=== PATIENT | male | born 1995 | race Caucasian/White ===

== ENCOUNTER 2021-12-26 11:52 | Outpatient (REF) | payer OTHER, SELFPAY ==
--- NOTE | ~2021-12-26 | XR_ITS ---
EXAMINATION: XR KNEE, LEFT CLINICAL INFORMATION: Sprain COMPARISON: None TECHNIQUE: Four views of the left knee. FINDINGS: Bones and soft tissues are normal. No fracture or joint effusion. Alignment is anatomic. Joint spaces are well maintained. No abnormal soft tissue calcification. XR/XR knee LT 4V IMPRESSION: Normal left knee.
== END 2021-12-26 11:53 | disposition home or self-care (01) ==
LOC: HO.HMGCX 11:52
PROVIDERS: Visit Provider Internal Medicine
DX: S83.92XA Sprain of unspecified site of left knee, initial encounter (principal)
CPT/HCPCS: 73564

== ENCOUNTER 2022-01-18 07:18 | Outpatient (REF) | payer OTHER, SELFPAY ==
--- NOTE | ~2022-01-18 | MR_ITS ---
EXAMINATION: MR KNEE WITHOUT CONTRAST, LEFT CLINICAL INFORMATION: Left knee pain and swelling. COMPARISON: Left knee radiographs dated 12/26/2021. TECHNIQUE: MRI of the knee without contrast was performed using routine sequences on a high-field scanner. FINDINGS: MENISCI: Medial Meniscus: Intact. Lateral Meniscus: Intact. LIGAMENTS: Cruciate: Intact. Collateral: Intact. EXTENSOR MECHANISM: Intact. ARTICULAR CARTILAGE/BONE: Patellofemoral Compartment: Normal Medial Compartment: Intact articular cartilage. Marrow edema at the posterior aspect of the medial tibial plateau consistent with an osseous contusion. No associated fracture line. Lateral Compartment: Intact articular cartilage. Marrow edema within the posterolateral aspect of the lateral tibial plateau consistent with an osseous contusion. No associated fracture line. JOINT FLUID AND BURSAE: Normal. MR/MR knee LT wo con IMPRESSION: 1. Osseous contusions at the posterior aspect of the medial tibial plateau as well as at the posterolateral aspect of the lateral tibial plateau. No associated fracture line or articular cartilage defect. 2. No meniscal or ligamentous injury.
== END 2022-01-18 07:19 | disposition home or self-care (01) ==
LOC: HO.MRI 07:18
PROVIDERS: Visit Provider Nurse Practitioner Family
DX: M25.562 Pain in left knee (principal)
CPT/HCPCS: 73721

== ENCOUNTER 2022-09-26 08:37 | Outpatient (REF) | payer OTHER, SELFPAY ==
[2022-09-26 11:20] LABS: MANUAL DIFF FLAG NO
[2022-09-26 11:26] LABS: Basophils Absolute Auto 0.1 X10*3/uL (0.0-0.2); Basophils Percent Auto 0.8 % (0-2); Eosinophils Absolute Auto 0.2 X10*3/uL (0.0-0.4); Eosinophils Percent Auto 2.9 % (0-4); Hematocrit 46.7 % (42.0-52.0); Hemoglobin 15.4 g/dl (14.0-18.0); Imm Gran Abs Auto 0.01 X10*3/uL (0.00-0.03); Imm Gran Pct Auto 0.2 % (0.0-0.4); Lymphocytes Absolute Auto 2.2 X10*3/uL (1.2-4.9); Lymphocytes Percent Auto 34.8 % (20-40); Mean Corpuscular Hemoglobin 27.8 pg (27.0-33.0); Mean Corpuscular Volume 84.3 fL (80.0-98.0); Mean Platelet Volume 9.8 fL (9.4-12.4); Monocytes Absolute Auto 0.4 X10*3/uL (0.1-1.2); Monocytes Percent Auto 7.1 % (2-11); Neutrophils Absolute Auto 3.4 x10*3/uL (2.0-8.3); Neutrophils Percent Auto 54.2 % (45-73); Platelet Count 294 X10*3/uL (160-400); Red Blood Count 5.54 X10*6/uL (4.60-5.80); Red Cell Distribution Width 11.9 % (11.0-16.0); White Blood Count 6.2 X10*3/uL (4.8-10.8)
[2022-09-26 11:42] LABS: Appearance Urine Clear; Color Urine Yellow; Glucose Urine UA Negative (Negative); Leukocyte Esterase Urine Negative (Negative); Nitrite Urine Negative (Negative); PH 5.5 (5.0-9.0); Specific Gravity - Urine 1.025 (1.005-1.025); Urine Blood Negative (Negative); Urine Ketones Negative (Negative); Urine Protein Negative (Neg-Trace)
[2022-09-26 12:01] LABS: Alanine Aminotransferase 17 U/L (0-40); Albumin Level 4.7 g/dL (3.5-5.0); Alkaline Phosphatase 70 U/L (39-117); Anion Gap 10 (12-20); Aspartate Amino Transferase 23 U/L (5-37); Blood Urea Nitrogen 11 mg/dL (9-16); C Reactive Protein 0.12 mg/dL (< or = 0.50); Calcium 9.6 mg/dL (8.4-10.2); Carbon Dioxide 30 mmol/L (22-29); Chloride 104 mmol/L (96-108); Cholesterol 172 mg/dL; Estimated Glomerular Filt Rate > 60; Glucose Fasting 90 mg/dL (60-99); HDL Cholesterol 36 mg/dL; LDL Cholesterol Calculated 106 mg/dl; Potassium 4.3 mmol/L (3.3-5.1); Sodium 140 mmol/L (135-145); TSH reflex Free T4 1.83 uIU/mL (0.32-4.0); Total Protein 7.5 g/dL (6.5-8.0); Triglycerides 152 mg/dL
[2022-09-26 12:06] LABS: Erythrocyte Sedimentation Rate 2 MM/HR (0-15)
[2022-09-26 13:43] LABS: Adenovirus F 40/41 Not Detected (Not Detect.); Astrovirus Not Detected (Not Detect.); Campylobacter Not Detected (Not Detect.); Cryptosporidium Not Detected (Not Detect.); Cyclospora cayetanensis Not Detected (Not Detect.); E. coli EAEC Not Detected (Not Detect.); E. coli EPEC Not Detected (Not Detect.); E. coli ETEC Not Detected (Not Detect.); E. coli O157 Not Detected (Not Detect.); E. coli STEC Not Detected (Not Detect.); Entamoeba histolytica Not Detected (Not Detect.); Giardia lamblia Not Detected (Not Detect.); Norovirus GI/GII Not Detected (Not Detect.); Plesiomonas shigelloides Not Detected (Not Detect.); Rotavirus A Not Detected (Not Detect.); Salmonella Not Detected (Not Detect.); Sapovirus Not Detected (Not Detect.); Shigella sp./EIEC Not Detected (Not Detect.); Vibrio Not Detected (Not Detect.); Vibrio Cholerae Not Detected (Not Detect.); Yersinia enterocolitica Not Detected (Not Detect.)
[2022-09-29 04:44] LABS: Transglutaminase IgA <1.0 U/mL
[2022-10-04 14:58] LABS: Endomysial IgA Antibody Negative (Negative)
== END 2022-09-26 08:38 | disposition home or self-care (01) ==
LOC: HO.HMGCLDS 08:37
PROVIDERS: PCP Nurse Practitioner Family; Visit Provider Nurse Practitioner Family
DX: Z00.00 Encounter for general adult medical examination without abnormal findings (principal); R19.7 Diarrhea, unspecified
CPT/HCPCS: 80053; 80061; 81003; 84443; 85025; 85652; 86140; 86231; 86364; 87507

== ENCOUNTER → 2022-10-16 14:40 | Outpatient (BNVA) | payer OTHER, SELFPAY | PROVIDERS: PCP Nurse Practitioner Family; Visit Provider Physician Assistant | DX: K52.9 Noninfective gastroenteritis and colitis, unspecified (principal) | CPT/HCPCS: 99202 ==

== ENCOUNTER → 2022-10-25 12:57 | Outpatient (BNVA) | payer OTHER, SELFPAY | PROVIDERS: PCP Nurse Practitioner Family; Visit Provider Nurse Practitioner Family | DX: R06.83 Snoring (principal); G47.30 Sleep apnea, unspecified; G47.19 Other hypersomnia | CPT/HCPCS: 99202 ==

== ENCOUNTER 2022-10-25 14:05 | Outpatient (REF) | payer OTHER, SELFPAY ==
[2022-10-25 17:10] LABS: C Reactive Protein 0.22 mg/dL (< or = 0.50)
[2022-10-25 17:35] LABS: Ferritin 68 ng/mL (20-250)
[2022-10-25 17:41] LABS: Erythrocyte Sedimentation Rate 2 MM/HR (0-15)
[2022-10-25 17:48] LABS: Vitamin B12 440 pg/mL (200-900)
[2022-10-30 15:44] LABS: Vitamin D 25-OH, D2 <4 ng/mL; Vitamin D 25-OH, D3 19 ng/mL; Vitamin D 25-OH, Total 19 ng/mL (30-100)
== END 2022-10-25 14:06 | disposition home or self-care (01) ==
LOC: HO.HMGCLDS 14:05
PROVIDERS: Absent Provider Physician Assistant; PCP Nurse Practitioner Family; Visit Provider Nurse Practitioner Family
DX: G47.30 Sleep apnea, unspecified (principal); G25.81 Restless legs syndrome; G47.19 Other hypersomnia; R53.83 Other fatigue; K52.9 Noninfective gastroenteritis and colitis, unspecified; R06.83 Snoring
CPT/HCPCS: 36415; 82306; 82607; 82728; 82746; 85652; 86140

== ENCOUNTER 2022-11-01 08:50 | Outpatient (REF) | payer OTHER, SELFPAY ==
[2022-11-01 17:45] LABS: CDiff Gene PCR NEGATIVE (Negative)
[2022-11-01 20:12] LABS: Leukocytes Stool Qualitative NEGATIVE (NEGATIVE)
[2022-11-10 15:57] LABS: Pancreatic Elastase-1 >500 mcg/g
[2022-11-10 23:04] LABS: Calprotectin, Fecal <5 mcg/g
== END 2022-11-01 08:51 | disposition home or self-care (01) ==
LOC: HO.HMGCLDS 08:50
PROVIDERS: PCP Nurse Practitioner Family; Visit Provider Physician Assistant
DX: K52.9 Noninfective gastroenteritis and colitis, unspecified (principal); A04.8 Other specified bacterial intestinal infections
CPT/HCPCS: 82656; 83993; 87338; 87493; 89055

== ENCOUNTER → 2022-11-12 12:53 | Outpatient (BNVA) | payer OTHER, SELFPAY | PROVIDERS: PCP Nurse Practitioner Family; Visit Provider Physician Assistant | DX: K52.9 Noninfective gastroenteritis and colitis, unspecified (principal) | CPT/HCPCS: 99212 ==

== ENCOUNTER → 2022-11-21 13:49 | Outpatient (REF) | payer OTHER, SELFPAY | LOC: HO.SL 13:49 | PROVIDERS: PCP Nurse Practitioner Family; Visit Provider Nurse Practitioner Family | DX: R06.83 Snoring (principal); G25.81 Restless legs syndrome; R53.83 Other fatigue; K52.9 Noninfective gastroenteritis and colitis, unspecified | CPT/HCPCS: 95806 ==

== ENCOUNTER → 2022-12-06 10:51 | Outpatient (BNVA) | payer OTHER, SELFPAY | PROVIDERS: PCP Nurse Practitioner Family; Visit Provider Nurse Practitioner Family | DX: G47.19 Other hypersomnia (principal); G25.81 Restless legs syndrome; R06.81 Apnea, not elsewhere classified; R53.83 Other fatigue | CPT/HCPCS: 99212 ==

== ENCOUNTER → 2023-01-09 19:30 | Outpatient (REF) | payer OTHER, SELFPAY | LOC: HO.SL 19:30 | PROVIDERS: PCP Nurse Practitioner Family; Visit Provider Nurse Practitioner Family | DX: G47.19 Other hypersomnia (principal); G25.81 Restless legs syndrome; R53.83 Other fatigue; R06.83 Snoring; R06.81 Apnea, not elsewhere classified | CPT/HCPCS: 95810 ==

== ENCOUNTER → 2023-01-29 09:46 | Outpatient (BNVA) | payer OTHER, SELFPAY | PROVIDERS: PCP Nurse Practitioner Family; Visit Provider Urology | DX: Z01.818 Encounter for other preprocedural examination (principal); F41.8 Other specified anxiety disorders | CPT/HCPCS: 99202 ==

== ENCOUNTER → 2023-02-06 10:49 | Outpatient (BNVA) | payer OTHER, SELFPAY | PROVIDERS: PCP Nurse Practitioner Family; Visit Provider Nurse Practitioner Family | DX: G47.19 Other hypersomnia (principal); R06.83 Snoring | CPT/HCPCS: 99212 ==

== ENCOUNTER → 2023-02-21 12:53 | Outpatient (BNVA) | payer OTHER, SELFPAY | PROVIDERS: PCP Nurse Practitioner Family; Visit Provider Urology | DX: Z30.2 Encounter for sterilization (principal); F41.8 Other specified anxiety disorders | CPT/HCPCS: 55250 ==

== ENCOUNTER 2023-05-06 13:39 | Outpatient (AMB) | payer OTHER, SELFPAY ==
[2023-05-06 13:45] VITALS: BP 110/68; PULSE 56; O2SAT 98; BMI 26.2
--- NOTE | 2023-05-06 13:45 | A.OFFPC_ITS ---
Vital Signs 05/06/23 13:45 Height 5 ft 9 in Weight 177 lb 4 oz BMI 26.2 BP 110/68 Blood Pressure Location Lt brachial Position Sitting Pulse 56 Pulse Source Pulse Oximeter Pulse Oximetry (%) 98 Oxygen Delivery Method Room Air Intake Visit Reasons: 4M Follow up Allergies clindamycin Allergy (Mild, Verified 05/06/23 13:47) Hives Tobacco use date assessed: 05/06/23 Dental Screening Dental Screen Date: 05/06/23 Did you have a dental visit in the last 12 months?: Yes Did you have a dental problem in the last 6 months where you did not have access to dental care?: No Was dental information given to patient?: Patient has dentist HPI 4M Follow up HPI Details Pt is here for a PE. Will order labs. Pt c/o left shoulder pain. He reports that this has been ongoing. Will order xr and refer to PT. Pt c/o increased anxiety. He would not like to start medication for this. Pt is interested in seeing a therapist, [facility]. Denies any SI and HI. PFSH Family History Father Substance use disorder Crohn's colitis Paternal Grandfather Substance use disorder Brother Substance use disorder Social History (Updated 02/06/23 @ 10:56 by Maia Shook [facility]) Housing: House Alcohol intake: current Alcohol intake frequency: holidays/special occasions only Patient Tobacco Use Status: Former Tobacco user (2 years ago ) Years Smoked: 3 years e-Cigarette/Vaping Use: Never Used service: Yes Current occupational status: employed Current occupation: [employer] Current occupational exposures/hazards: Yes Cognitive needs: No Hearing needs: No Vision needs: No Questionnaire Thrive Questionnaire Date Thrive assessed: 04/05/22 BAKARI-7 AMB Questionnaire BAKARI-7 Date BAKARI - 7 assessed: 04/05/22 Source: Developed by Drs. Marty Mendes, Zoë Blake, Lee Latif and colleagues, with an educational morgan from [employer]. Review of Systems Const Denies chills and Denies fever(s) Eyes Denies blurry vision ENT Denies vertigo, Denies dizziness and Denies sore throat Card Denies chest pain at rest, Denies chest pain with activity, Denies diaphoresis, Denies dyspnea and Denies dyspnea on exertion Resp Denies cough, Denies dyspnea, Denies dyspnea on exertion and Denies wheezing GI Denies abdominal pain, Denies melena, Denies hematochezia, Denies constipation, Denies diarrhea and Denies loose stools Denies hematuria Musc Denies numbness and Denies tingling Skin/Breast Denies lesions Neuro Denies vertigo, Denies dizziness, Denies numbness and Denies tingling Psych Reports anxiety, Denies depression, Denies homicidal ideation, Denies suicidal ideation and Denies other (substance abuse) Aller/Immun Denies wheezing Physical exam (Primary Care) Vital Signs: Last Vital Signs Pulse 56 05/06/23 13:45 BP 110/68 05/06/23 13:45 Pulse Ox 98 05/06/23 13:45 Oxygen Delivery Method Room Air 05/06/23 13:45 BMI result Body Mass Index 26.2 Tobacco/Smoking Status: Tobacco use Status Tobacco use date assessed 05/06/23 05/06/23 13:50 Patient Tobacco Use Status Former Tobacco user (2 years 05/06/23 13:50 ago ) e-Cigarette/Vaping Use Never Used 05/06/23 13:50 Thrive Assessment: Date of Thrive Assessment Date Thrive assessed 04/05/22 05/06/23 13:50 Const General: cooperative Nutritional Appearance: well nourished Orientation/consciousness: patient oriented x3 HENMT Head: Yes normal to inspection, Yes normocephalic and Yes atraumatic Ears: TM's normal bilaterally Eyes General: appearance normal, both eyes and all related structures Alignment and Position: alignment normal and position normal Neck Neck: Yes normal visual inspection and Yes no lymphadenopathy Thyroid: Thyroid normal Resp Effort & Inspection: normal respiratory effort Auscultation: clear to auscultation bilaterally Cardio Rate: regular rate Rhythm: regular rhythm Heart sounds: S1 normal heart sound present, S2 normal heart sound present and n o murmurs GI Palpation (GI): Soft to palpation and nontender Auscultation: normal bowel sounds Male General Exam: Yes normal external exam Penis: normal penis Scrotum: scrotum normal, testes descended bilaterally and no inguinal hernias Testes: no testicular mass Skin Rashes: no rashes Neuro General: patient oriented x3, moves all extremities, no focal motor deficits and deep tendon reflexes 2+ bilaterally Romberg Test: Negative Extrem Other: left shoulder: + neers, + cook, - jobes Psych Appearance: grossly normal Mental Status: mental status grossly normal Speech and movement: Normal speech and movement present Affect: normal affect Attitude: cooperative Thought process: Normal thought process present Thought content: Normal thought content present Insight: Good insight present (Psych) Judgement: Good judgement present (Psych) Assessment and Plan Assessment & Plan (1) Physical exam: Code(s): Z00.00 - Encounter for general adult medical examination without abnormal findings Plan: Labs ordered (2) Left shoulder pain: Code(s): M25.512 - Pain in left shoulder Plan: XR ordered, referred to PT (3) Anxiety: Code(s): F41.9 - Anxiety disorder, unspecified Plan The patient agreed to the use of a medical instrument technician for this encounter. Scribed for TERRANCE Eldridge-BC by Griselda Russ medical instrument technician, on 05/06/2023 at 14:00 EST. Orders: Orders Comprehensive [place]. Panel Fast Today Z00.00 - Encounter for general adult medical examination without abnormal findings Lipid Panel Today Z00.00 - Encounter for general adult medical examination without abnormal findings TSH reflex Free T4 Today Z00.00 - Encounter for general adult medical examination without abnormal findings Complete Blood Count Auto Diff Today Z00.00 - Encounter for general adult medical examination without abnormal findings UA CC w/rflx Micro + Cult Today Z00.00 - Encounter for general adult medical examination without abnormal findings PT Evaluation and Treatment Today M25.512 - Pain in left shoulder XR shoulder LT min 2V Today M25.512 - Pain in left shoulder Coding Level of Care Code Est Pt Prev Care 18-39y(47670) Diagnoses Physical exam Z00.00 Left shoulder pain M25.512 Anxiety F41.9
== END 2023-05-06 14:41 | disposition home or self-care (01) ==
PROVIDERS: PCP Nurse Practitioner Family; Visit Provider Nurse Practitioner Family
DX: Z00.00 Encounter for general adult medical examination without abnormal findings (principal); M25.512 Pain in left shoulder; F41.9 Anxiety disorder, unspecified
CPT/HCPCS: 99395

== ENCOUNTER 2023-05-07 07:24 | Outpatient (REF) | payer OTHER, SELFPAY ==
--- NOTE | ~2023-05-07 | XR_ITS ---
EXAMINATION: XR SHOULDER, LEFT CLINICAL INFORMATION: Pain in left shoulder COMPARISON: None available. TECHNIQUE: AP external rotation, Grashey, scapular Y, and axillary views of the left shoulder. FINDINGS: The bones and soft tissues are normal. No fracture. Glenohumeral and acromioclavicular alignment is anatomic with normal joint space. No abnormal soft tissue calcifications. XR/XR shoulder LT min 2V IMPRESSION: Normal left shoulder.
[2023-05-07 11:28] LABS: MANUAL DIFF FLAG NO
[2023-05-07 11:40] LABS: Basophils Absolute Auto 0.1 X10*3/uL (0.0-0.2); Basophils Percent Auto 0.9 % (0-2); Eosinophils Absolute Auto 0.2 X10*3/uL (0.0-0.4); Eosinophils Percent Auto 4.1 % (0-4); Hematocrit 44.5 % (42.0-52.0); Hemoglobin 15.2 g/dl (14.0-18.0); Imm Gran Abs Auto 0.02 X10*3/uL (0.00-0.03); Imm Gran Pct Auto 0.3 % (0.0-0.4); Lymphocytes Absolute Auto 2.3 X10*3/uL (1.2-4.9); Lymphocytes Percent Auto 38.5 % (20-40); Mean Corpuscular HGB Conc 34.2 g/dl (31.0-36.0); Mean Corpuscular Hemoglobin 28.6 pg (27.0-33.0); Mean Corpuscular Volume 83.8 fL (80.0-98.0); Mean Platelet Volume 9.8 fL (9.4-12.4); Monocytes Absolute Auto 0.4 X10*3/uL (0.1-1.2); Monocytes Percent Auto 7.3 % (2-11); Neutrophils Absolute Auto 2.9 x10*3/uL (2.0-8.3); Neutrophils Percent Auto 48.9 % (45-73); Platelet Count 248 X10*3/uL (160-400); Red Blood Count 5.31 X10*6/uL (4.60-5.80); White Blood Count 5.9 X10*3/uL (4.8-10.8)
[2023-05-07 12:49] LABS: Appearance Urine Clear; Color Urine Yellow; Glucose Urine UA Negative (Negative); Leukocyte Esterase Urine Negative (Negative); Nitrite Urine Negative (Negative); PH 5.5 (5.0-9.0); Specific Gravity - Urine 1.025 (1.005-1.025); Urine Blood Negative (Negative); Urine Ketones Negative (Negative); Urine Protein Negative (Neg-Trace)
[2023-05-07 12:50] LABS: Alanine Aminotransferase 32 U/L (0-40); Albumin Level 4.4 g/dL (3.5-5.0); Alkaline Phosphatase 81 U/L (39-117); Anion Gap 15 (12-20); Aspartate Amino Transferase 45 U/L (5-37); Bilirubin Total 0.5 mg/dL (0.0-1.0); Blood Urea Nitrogen 9 mg/dL (9-16); Calcium 9.5 mg/dL (8.4-10.2); Carbon Dioxide 24 mmol/L (22-29); Chloride 106 mmol/L (96-108); Cholesterol 174 mg/dL; Estimated Glomerular Filt Rate > 60; Glucose Fasting 94 mg/dL (60-99); HDL Cholesterol 44 mg/dL; LDL Cholesterol Calculated 102 mg/dl; Potassium 3.8 mmol/L (3.3-5.1); Sodium 141 mmol/L (135-145); TSH reflex Free T4 3.31 uIU/mL (0.32-4.0); Total Protein 7.6 g/dL (6.5-8.0); Triglycerides 144 mg/dL
== END 2023-05-07 07:25 | disposition home or self-care (01) ==
LOC: HO.HMGCX 07:24
PROVIDERS: PCP Nurse Practitioner Family; Visit Provider Nurse Practitioner Family
DX: Z00.00 Encounter for general adult medical examination without abnormal findings (principal); M25.512 Pain in left shoulder; Z13.220 Encounter for screening for lipoid disorders; Z13.29 Encounter for screening for other suspected endocrine disorder
CPT/HCPCS: 36415; 73030; 80053; 80061; 81003; 84443; 85025

== ENCOUNTER 2023-05-15 08:24 | Outpatient (REF) | payer OTHER, SELFPAY ==
--- NOTE | ~2023-05-15 | US_ITS ---
EXAMINATION: US ABDOMEN COMPLETE CLINICAL INFORMATION: Elevated liver enzymes. COMPARISON: None available. TECHNIQUE: Real-time imaging of the abdominal viscera. FINDINGS: PANCREAS: Normal. ABDOMINAL AORTA: The proximal, mid, and distal segments are normal in caliber. INFERIOR VENA CAVA: Visualized portions are normal. LIVER: Normal. The liver is normal in size. The liver contour is normal. Parenchymal echogenicity is normal. No focal hepatic lesion. There is no intrahepatic biliary duct dilatation seen. GALLBLADDER: There is mild biliary sludge. The gallbladder is physiologically distended without evidence of stones, polyps, wall thickening or pericholecystic fluid. COMMON BILE DUCT: Normal in caliber measuring 0.4 cm in diameter. RIGHT KIDNEY: Normal. No hydronephrosis. No renal calculi or focal parenchymal lesions. The kidney measures 11.3 cm in maximum dimension. LEFT KIDNEY: Normal. No hydronephrosis. No renal calculi or focal parenchymal lesions. The kidney measures 11.0 cm in maximum dimension. SPLEEN: No focal finding. The spleen measures 14.0 cm in maximum dimension. FREE FLUID: None. US/US abdomen complete IMPRESSION: 1. There is mild splenomegaly. 2. There is mild biliary sludge. 3. Otherwise, unremarkable examination.
[2023-05-16 04:05] LABS: HBS Num1 > 1000.00 mIU/mL (0-7.99); HBc Num1 0.12 S/CO (0.00-0.79); HBsAGNum1 0.35 S/CO (0.00-0.99); Hepatitis A Antibody IgM 0.21 Index (0-0.79); Hepatitis B Core Antibody Nonreactive (Nonreactive); Hepatitis B Surface Antigen Negative (Negative); ~HepC Num1 0.08 S/CO (0.00-0.79); ~Hepatitis A Antibody IgM Nonreactive (Nonreactive); ~Hepatitis B Surface Antibody REACTIVE (Nonreactive); ~Hepatitis C Antibody Nonreactive (Nonreactive)
== END 2023-05-15 08:25 | disposition home or self-care (01) ==
LOC: HO.HMGCX 08:24
PROVIDERS: Visit Provider Nurse Practitioner Family
DX: R74.8 Abnormal levels of other serum enzymes (principal)
CPT/HCPCS: 36415; 76700; 86704; 86706; 86709; 86803; 87340

== ENCOUNTER 2023-05-24 13:07 | Outpatient (AMB) | payer OTHER, SELFPAY ==
--- NOTE | 2023-05-24 13:11 | MHC.OFFVIS ---
Intake Intake Visit Reasons: 12w seman analysis Intake Note: Patient is present for Follow Up Semen analysis Urology Med: None Antibiotic Allergy: Clindamycin Blood Thinner: None Pharmacy: [facility] Allergies clindamycin Allergy (Mild, Verified 05/24/23 13:12) Hives [facility] HPI Comments History of Present Illness Details Marshall is a very pleasant male. He is a patient of Dr. Ruiz. He is seen for the following urologic condition - anxiety about health - Vasectomy procedure No sperm seen on [facility] Vasectomy procedure The patient presents for vasectomy procedure. He is currently He has fathered - to child, with a single partner. The youngest child is - 2 years. His partner is aware and permissive for a vasectomy Current form of control is hormonal. The vasectomy may be complicated due to a history of no complicating issues, inguinal hernia repair, orchidopexy, history of orchitis, orchiectomy. Patient education has been provided via AUA video, via printed information, risks of failure, recovery time, bruising and potential pain syndrome have been stressed [facility] Family History Father Substance use disorder Crohn's colitis Paternal Grandfather Substance use disorder Brother Substance use disorder Social History Housing: House Alcohol intake: current Alcohol intake frequency: holidays/special occasions only Patient Tobacco Use Status: Former Tobacco user (2 years ago ) Years Smoked: 3 years e-Cigarette/Vaping Use: Never Used service: Yes Current occupational status: employed Current occupation: [employer] Current occupational exposures/hazards: Yes Cognitive needs: No Hearing needs: No Vision needs: No Review of Systems Const Denies chills and Denies fever(s) Card Reports no additional complaints and Denies syncope Resp Denies cough GI Denies abdominal pain and Denies heartburn Reports as per HPI and Denies change in libido Neuro Denies syncope Psych Denies change in libido Endo Denies change in libido Physical Exam Const General: cooperative, healthy appearing, comfortable and no acute distress Orientation/consciousness: patient oriented x3 HEENT Face and sinus: Yes normal facial exam Mouth: moist mucous membranes Neck Neck: Yes normal visual inspection, Yes full ROM and Yes trachea midline Chest Chest palpation & inspection: normal inspection of the chest Resp Effort & Inspection: normal respiratory effort, able to speak in complete sentences and no respiratory distress GI Inspection: Yes normal to inspection Back/Spine/Pelvis Cervical Spine: normal cervical lordosis Thoracic/Lumbar Spine: thoracic and lumbar spine normal to inspection Skin General skin exam: no rashes or lesions noted Neuro General: patient oriented x3, gait normal, tone normal and moves all extremities Extrem General: Yes normal to inspection and Yes capillary refill normal Assessment & Plan Assessment & Plan (1) Anxiety about health: Code(s): F41.8 - Other specified anxiety disorders Plan PRN Patient Instructions: Imaging studies, laboratory and physical exam results were discussed and reviewed in detail. No major barriers to patient understanding were identified. An opportunity to ask questions regarding the treatment plan was provided. All questions were answered. The patient expressed understanding and agreement with the above treatment plan. The patient is aware they should contact our office by phone for worsening of their current condition or the appearance of new urologic symptoms. Compliance is encouraged with any medications and followup testing that is ordered. It is a privilege to participate in the urologic care of your patient. If you have any questions or concerns regarding treatment for the above conditions, or other urologic issues, please do not hesitate to contact me. The office telephone contact is [phone]. This note is constructed using voice recognition software. While every effort has been made to ensure accuracy propellant charge zone assembler errors may have been included. Yours sincerely, Dr Garrett Contreras MD, DOLLY [facility] - Urology Providers of Expert, Compassionate Care for the Genitourinary System Coding Level of Care Code Est Pt Level 3 (40624) Diagnoses Anxiety about health F41.8
== END 2023-05-24 13:18 | disposition home or self-care (01) ==
PROVIDERS: PCP Nurse Practitioner Family; Visit Provider Urology
DX: F41.8 Other specified anxiety disorders (principal)
CPT/HCPCS: 99213

== ENCOUNTER → 2023-05-24 13:07 | Outpatient (BNVA) | payer OTHER, SELFPAY | PROVIDERS: Visit Provider Urology | DX: Z30.2 Encounter for sterilization (principal); F41.8 Other specified anxiety disorders | CPT/HCPCS: 99212 ==

== ENCOUNTER 2023-07-03 10:51 | Outpatient (REF) | payer OTHER, SELFPAY ==
[2023-07-03 13:32] LABS: Monotest Negative (Negative)
== END 2023-07-03 10:52 | disposition home or self-care (01) ==
LOC: HO.HMGCLDS 10:51
PROVIDERS: PCP Nurse Practitioner Family; Visit Provider Nurse Practitioner Family
DX: R16.1 Splenomegaly, not elsewhere classified (principal)
CPT/HCPCS: 36415; 86308

== ENCOUNTER 2023-08-02 13:00 | Outpatient (RCR) | payer OTHER, SELFPAY ==
--- NOTE | 2023-06-12 12:56 | MHC.PT.EP ---
[facility] [place] Office [place] Office [address] [phone] F: [phone] F: [phone] F: [phone] F: [phone] Physical Therapy Plan of Care Date of Evaluation: 06/12/23 Date of Surgery: none Diagnosis: Pain in Left Shoulder Assessment: Patient is a 27 year old R handed male who presents with s/s consistent with pain in L shoulder. 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 Patient past medical history is unremarkable. Current impairments include pain, posture, ROM, strength, activity tolerance and functional mobility. Functional limitations include decreased ability to reach and lift overhead, sleep, and perform mechanics activities/job demands. Patient is motivated with good rehab potential. Skilled PT will address impairments and functional limitations in order to achieve goals. Frequency and Duration: The patient will be seen 2x/week for 5 weeks Short Term Goals: I with HEP - 4 visits pain free full AROM - 3 weeks min b/l pec tightness - 3 weeks [employer] Goals: Strength 4+/5 grossly - 5 weeks symmetrical posture and cervical rotation - 5 weeks pain free exercise and ADLs - 5 weeks Treatment Plan: Modalities to reduce pain, spasms and effusion. Manual therapy to restore motion and function. Therapeutic exercise to improve strength and flexibility. Neuromuscular re-education for posture and balance. Therapeutic activities to return to functional activities of daily living. Electronically signed by: Chang Duran, PT Please sign and return to therapist. Thank you for your referral.
--- NOTE | 2023-10-22 13:18 | MHC.PT.DC ---
[facility] [place] Office [place] Office [place] Office [address] Roz Durand [address] [phone] F: [phone] F: [phone] F: [phone] F: [phone] Physical Therapy Discharge Report Diagnosis: Pain in Left Shoulder Date of Surgery: none Date of Evaluation: 06/12/23 Date of Discharge: 08/08/23 Treatments to Date: 8 Cancellations to Date: No Shows to Date: Discharge Status: Improved Function Independent with HEP Discharge Summary: 08/02/23: pt progressed well over the course of skilled PT. min to no pain with daily works out. pain free full AROM. strength 5/5 grossly. improved postural awareness. min tight b/l pecs. appropriate to d/c to HEP at this time. 07/31/23: pt progressing well with skilled PT. pain free with daily ex routine. able to do a yumiko with vest pain free. we will plan to d/c to HEP NV. 07/24/23: pt progressing well. notes no pain for several days. we will continue as tolerated. 07/19/23: pt fatigues quickly with ER strengthening ex. i encouraged him to work on ER strength in HEP. added supine punches with black TB. 07/17/23: added thoracic ext stretching and sleeper stretching. no adverse reactions. we will update HEP NV. 07/10/23: pt responding well and able to work out with less discomfort and tightness. we will continue to progress as tolerated. 07/05/23: pt has been feeling sore since last appt. started IASTM to post cuff today. assess response and progress as tolerated. 07/03/23: pt progressing well with skilled PT. compliant with HEP. we progressed today with postural ex. to add cuff strength NV. Patient is a 27 year old R handed male who presents with s/s consistent with pain in L shoulder. 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 Patient past medical history is unremarkable. Current impairments include pain, posture, ROM, strength, activity tolerance and functional mobility. Functional limitations include decreased ability to reach and lift overhead, sleep, and perform mechanics activities/job demands. Patient is motivated with good rehab potential. Skilled PT will address impairments and functional limitations in order to achieve goals. Electronically signed by: Chang Duran, PT Please sign and return to therapist. Thank you for your referral.
== END 2023-10-22 13:19 | disposition home or self-care (01) ==
LOC: HO.PTCHIC 13:00
PROVIDERS: PCP Nurse Practitioner Family; Visit Provider Nurse Practitioner Family
DX: M25.512 Pain in left shoulder (principal)
CPT/HCPCS: 97110; 97140; 97161

== ENCOUNTER 2023-09-05 15:15 | Outpatient (AMB) | payer OTHER, SELFPAY ==
--- NOTE | 2023-09-05 16:12 | MHC.OFFVIS ---
Intake Intake Visit Reasons: sperm analysis Allergies clindamycin Allergy (Mild, Verified 05/24/23 13:12) Hives HPI HPI Comments History of Present Illness Details Marshall is a very pleasant male. He is a patient of Dr. Ruiz. He is seen for the following urologic condition - anxiety about health - Vasectomy procedure Patient had called last week with concerns that his was Instructed to reobtain the office with a 2nd sperm sample Sample examined today no sperm seen on high-powered field examination, small crystals and occasional squamous cells seen (CPT 27438) Discussed obtaining full evaluation through [facility] fertility I also mentioned the possibility of extramarital sperm source He tells me his tested negative this morning - likely false-positive 05/29 No sperm seen on [facility] Vasectomy procedure The patient presents for vasectomy procedure. He is currently He has fathered - to child, with a single partner. The youngest child is - 2 years. His partner is aware and permissive for a vasectomy Current form of control is hormonal. The vasectomy may be complicated due to a history of no complicating issues, inguinal hernia repair, orchidopexy, history of orchitis, orchiectomy. Patient education has been provided via AUA video, via printed information, risks of failure, recovery time, bruising and potential pain syndrome have been stressed [facility] Family History Father Substance use disorder Crohn's colitis Paternal Grandfather Substance use disorder Brother Substance use disorder Social History Housing: House Alcohol intake: current Alcohol intake frequency: holidays/special occasions only Patient Tobacco Use Status: Former Tobacco user (2 years ago ) Years Smoked: 3 years e-Cigarette/Vaping Use: Never Used service: Yes Current occupational status: employed Current occupation: [employer] Current occupational exposures/hazards: Yes Cognitive needs: No Hearing needs: No Vision needs: No Review of Systems Const Denies chills and Denies fever(s) Card Reports no additional complaints and Denies syncope Resp Denies cough GI Denies abdominal pain and Denies heartburn Reports as per HPI and Denies change in libido Neuro Denies syncope Psych Denies change in libido Endo Denies change in libido Physical Exam Const General: cooperative, healthy appearing, comfortable and no acute distress Orientation/consciousness: patient oriented x3 HEENT Face and sinus: Yes normal facial exam Mouth: moist mucous membranes Neck Neck: Yes normal visual inspection, Yes full ROM and Yes trachea midline Chest Chest palpation & inspection: normal inspection of the chest Resp Effort & Inspection: normal respiratory effort, able to speak in complete sentences and no respiratory distress GI Inspection: Yes normal to inspection Back/Spine/Pelvis Cervical Spine: normal cervical lordosis Thoracic/Lumbar Spine: thoracic and lumbar spine normal to inspection Skin General skin exam: no rashes or lesions noted Neuro General: patient oriented x3, gait normal, tone normal and moves all extremities Extrem General: Yes normal to inspection and Yes capillary refill normal Assessment & Plan Assessment & Plan (1) Anxiety about health: Code(s): F41.8 - Other specified anxiety disorders Plan P.r.n. follow-up Patient Instructions: Imaging studies, laboratory and physical exam results were discussed and reviewed in detail. No major barriers to patient understanding were identified. An opportunity to ask questions regarding the treatment plan was provided. All questions were answered. The patient expressed understanding and agreement with the above treatment plan. The patient is aware they should contact our office by phone for worsening of their current condition or the appearance of new urologic symptoms. Compliance is encouraged with any medications and followup testing that is ordered. It is a privilege to participate in the urologic care of your patient. If you have any questions or concerns regarding treatment for the above conditions, or other urologic issues, please do not hesitate to contact me. The office telephone contact is [phone]. This note is constructed using voice recognition software. While every effort has been made to ensure accuracy sec accountant errors may have been included. Yours sincerely, Dr Garrett Contreras MD, DOLLY [facility] - Urology Providers of Expert, Compassionate Care for the Genitourinary System Coding Level of Care Code Est Pt Level 3 (68627) Diagnoses Anxiety about health F41.8
== END 2023-09-05 16:22 | disposition home or self-care (01) ==
PROVIDERS: PCP Nurse Practitioner Family; Visit Provider Urology
DX: F41.8 Other specified anxiety disorders (principal)
CPT/HCPCS: 99213

== ENCOUNTER → 2023-09-05 15:15 | Outpatient (BNVA) | payer OTHER, SELFPAY | PROVIDERS: PCP Nurse Practitioner Family; Visit Provider Urology | DX: F41.8 Other specified anxiety disorders (principal); Z30.2 Encounter for sterilization | CPT/HCPCS: 99212 ==

== ENCOUNTER 2023-09-09 15:26 | Outpatient (AMB) | payer OTHER, SELFPAY ==
[2023-09-09 14:29] VITALS: BP 100/60; PULSE 74; O2SAT 97; BMI 26.6
--- NOTE | 2023-09-09 14:29 | MHC.PC.OV ---
Vital Signs 09/09/23 14:29 Height 5 ft 9 in Weight 180 lb BMI 26.6 BP 100/60 Blood Pressure Location Rt brachial Position Sitting Pulse 74 Pulse Source Pulse Oximeter Pulse Oximetry (%) 97 Oxygen Delivery Method Room Air Intake Visit Reasons: 4 month fu Intake Note: Pt is here today for his 4mo. f/u Allergies clindamycin Allergy (Mild, Verified 09/09/23 15:34) Hives Tobacco use date assessed: 09/09/23 Dental Screening Dental Screen Date: 09/09/23 HPI 4 month fu HPI Details Pt c/o frequent diarrhea (see previous work up). He has tried imodium which caused constipation. Pt has seen GI for this in the past, EGD/colonoscopy was mentioned but pt has not had this. Will reach out to GI office. Denies fever, chills, and and blood in stool. PFSH Family History Father Substance use disorder Crohn's colitis Paternal Grandfather Substance use disorder Brother Substance use disorder Social History Housing: House Alcohol intake: current Alcohol intake frequency: holidays/special occasions only Patient Tobacco Use Status: Former Tobacco user (2 years ago ) Years Smoked: 3 years e-Cigarette/Vaping Use: Never Used service: Yes Current occupational status: employed Current occupation: [employer] Current occupational exposures/hazards: Yes Cognitive needs: No Hearing needs: No Vision needs: Yes Questionnaire PHQ-9 Over the last 2 weeks, how often have you been bothered by any of the following problems? 1. Little interest or pleasure in doing things: not at all 2. Feeling down, depressed, or hopeless: not at all 3. Trouble falling or staying asleep, or sleeping too much: not at all 4. Feeling tired or having little energy: not at all 5. Poor appetite or overeating: not at all 6. Feeling bad about yourself - or that you are a failure or have let yourself or your family down: not at all 7. Trouble concentrating on things, such as reading the newspaper or watching television: not at all 8. Moving or speaking so slowly that other people could have noticed. Or the opposite - being so fidgety or restless that you have been moving around a lot more than usual: not at all 9. Thoughts that you would be better off or of hurting yourself in some way: not at all Total score: 0 Source: Developed by Drs. Marty Mendes, Zoë Blake, Lee aLtif and colleagues, with an educational morgan from [employer]. Thrive Questionnaire Date Thrive assessed: 09/09/23 I am a: Patient What is your living situation today?: I have a steady place to live Within the past 12 months, did the food you bought not last and you didn't have the money to get more?: Never true Within the past 12 months, did you worry whether your food would run out before you got money to buy more?: Never true Do you have trouble paying for medicines?: No Do you have trouble getting transportation to medical appointments?: No Do you have trouble paying your heating and electricity bill?: No Do you have trouble taking care of your child, family member or friend?: No Do you have trouble with day-to-day activities such as bathing, preparing meals, shopping, managing finances, etc.?: No Are you currently unemployed and looking for a job?: No Are you interested in more education?: No AUDIT C Alcohol Use Questionnaire (AUDIT-C) 1. How often do you have a drink containing alcohol?: Monthly or less 2. How many drinks containing alcohol do you have on a typical day when you are drinking?: 1 or 2 3. How often do you have six or more drinks on one occasion?: Never Total Score: 1 BAKARI-7 AMB Questionnaire BAKARI-7 Date BAKARI - 7 assessed: 09/09/23 Feeling nervous, anxious, or on edge: 1 = Several days Not being able to stop or control worryin = Not at all Worrying too much about different things: 1 = Several days Trouble relaxin = Not at all Being so restless that it is hard to sit still: 0 = Not at all Becoming easily annoyed or irritable: 0 = Not at all Feeling afraid as if something awful might happen: 0 = Not at all Total BAKARI-7 score (0-4 normal; 5-9 mild; 10-14 moderate; 15-21 severe): 2 Source: Developed by Drs. Maryt Mendes, Zoë Blake, Lee Latif and colleagues, with an educational morgan from [employer]. Review of Systems Const Reports as per HPI Physical exam (Primary Care) Vital Signs: Last Vital Signs Pulse 74 09/09/23 14:29 BP 100/60 09/09/23 14:29 Pulse Ox 97 09/09/23 14:29 Oxygen Delivery Method Room Air 09/09/23 14:29 BMI result Body Mass Index 26.6 Tobacco/Smoking Status: Tobacco use Status Tobacco use date assessed 09/09/23 09/09/23 15:36 Patient Tobacco Use Status Former Tobacco user (2 years 09/09/23 14:29 ago ) e-Cigarette/Vaping Use Never Used 09/09/23 14:29 PHQ-9: PHQ-9 Score PHQ-9: Total score 0 09/09/23 15:59 Thrive Assessment: Date of Thrive Assessment Date Thrive assessed 09/09/23 09/09/23 15:41 Const General: cooperative Orientation/consciousness: patient oriented x3 Resp Effort & Inspection: normal respiratory effort Auscultation: clear to auscultation bilaterally Cardio Rate: regular rate Rhythm: regular rhythm Heart sounds: S1 normal heart sound present and S2 normal heart sound present GI Palpation (GI): nontender Neuro General: patient oriented x3 Psych Appearance: grossly normal Mental Status: mental status grossly normal Speech and movement: Normal speech and movement present Affect: normal affect Attitude: cooperative Thought process: Normal thought process present Thought content: Normal thought content present Insight: Good insight present (Psych) Judgement: Good judgement present (Psych) Assessment and Plan Assessment & Plan (1) Diarrhea: Code(s): R19.7 - Diarrhea, unspecified Plan: follow up with GI Plan The patient agreed to the use of a medical grade shoemaker for this encounter. Scribed for DAVIE Eldridge by Griselda Russ medical grade shoemaker, on 09/09/2023 at 15:55 EST. Coding Level of Care Code Est Pt Level 3 (43103) Diagnoses Diarrhea R19.7
== END 2023-09-09 16:49 | disposition home or self-care (01) ==
PROVIDERS: PCP Nurse Practitioner Family; Visit Provider Nurse Practitioner Family
DX: R19.7 Diarrhea, unspecified (principal)
CPT/HCPCS: 99213

== ENCOUNTER 2023-11-20 11:24 | Day surgery (SDC) | payer OTHER, SELFPAY ==
[2023-11-18 11:28] VITALS: BMI 27.3
--- NOTE | 2023-11-19 10:51 | P.CONAN_ITS ---
Documented by User: Katy Varela NP 11/19/23 10:51 HPI - Anesthesia Eval Consult details Narrative: 28yo M for Upper Endoscopy and Colonoscopy [facility] Active Problems Active Problems: All Active Problems (Updated 11/19/23 @ 06:40 by Winnie Ball RN) Elevated liver enzymes (Acute) Anxiety (Acute) Left shoulder pain (Acute) Anxiety about health (Acute) Witnessed apneic spells (Acute) Excessive daytime sleepiness (Acute) Restless leg syndrome (Acute) Chronic diarrhea (Acute) Vasectomy evaluation (Acute) Fatigue (Acute) Snores (Acute) Sleep apnea (Acute) Diarrhea (Acute) Cerumen impaction (Acute) Physical exam (Acute) Left knee pain (Acute) Sprain of left knee (Acute) Past Medical History Medical History (Updated 11/19/23 @ 06:40 by Winnie Ball RN) IBS (irritable bowel syndrome) Family History Family History Father Substance use disorder Crohn's colitis Paternal Grandfather Substance use disorder Brother Substance use disorder Social History Social History Housing: House Alcohol intake: current Alcohol intake frequency: holidays/special occasions only Patient Tobacco Use Status: Former Tobacco user (2 years ago ) Years Smoked: 3 years e-Cigarette/Vaping Use: Never Used Advance Directives: No Advance Directives Information Provided: Yes service: Yes Current occupational status: employed Current occupation: [employer] Current occupational exposures/hazards: Yes Cognitive needs: No Hearing needs: No Vision needs: Yes Meds Allergies Allergy/AdvReac Type Severity Reaction Status Date / Time clindamycin Allergy Mild Hives Verified 09/09/23 15:34 Exam Height,Weight and Vital Signs: Height 5 ft 9 in Weight 83.915 kg Assessment and Plan Assessment Anesthesia Assessment: Chart Reviewed Documented by User: Trina Hayes MD 11/20/23 11:53 PMF Past Medical History Medical History (Updated 11/19/23 @ 06:40 by Winnie Ball RN) IBS (irritable bowel syndrome) Family History Family History Father Substance use disorder Crohn's colitis Paternal Grandfather Substance use disorder Brother Substance use disorder Family history of problems with anesthesia: No Surgical History History of Problems with Anesthesia: No Social History Social History Housing: House Alcohol intake: current Alcohol intake frequency: holidays/special occasions only Patient Tobacco Use Status: Former Tobacco user (2 years ago ) Years Smoked: 3 years e-Cigarette/Vaping Use: Never Used Advance Directives: No Advance Directives Information Provided: Yes service: Yes Current occupational status: employed Current occupation: [employer] Current occupational exposures/hazards: Yes Cognitive needs: No Hearing needs: No Vision needs: Yes Meds Allergies Allergy/AdvReac Type Severity Reaction Status Date / Time clindamycin Allergy Mild Hives Verified 09/09/23 15:34 Exam Airway Mallampati Class: II TM Dist: >3cm Neck ROM: Full Heart: rrr Lungs: cta Assessment and Plan Assessment Anesthesia Assessment: Anesthesia Plan Discussed Final Anesthetic Review Family History of Problems with Anesthesia: No History of Problems with Anesthesia: No NPO: Yes ASA Class: II Final Preanesthetic Review: No Changes in Pt Med Stat, Meds/Allgs Chart Reviewed and Consent Obtained/Reviewed Patient Risk: Low Procedure Risk: Low Anesthetic Plan Anesthetic Plan: MAC: Disposition: Standard PACU
--- NOTE | 2023-11-20 11:59 | MHC.SHP ---
Pre-Procedural Eval Section A - 24 Hr Update-Section A only Date of Service: 11/20/23 Section B - Complete if H&P > 30 days Chief Complaint: Noninfective gastroenteritis and colitis, unspecif Details of Present Illness: FH of IBD Relevant Family History (Specify if Yes): Yes Relevant Social History: None Present Medications: see Short Stay Collaborative assessment Medical History: Significant History (possible ANGELINA) History of Previous Operations: No relevant previous surgery Allergies: Allergies Allergy/AdvReac Type Severity Reaction Status Date / Time clindamycin Allergy Mild Hives Verified 09/09/23 15:34 Review of Systems Sugical H&P ROS: Negative: Constitution, Cardiovascular, Respiratory, Neurological, Psychiatric, Hem-Onc, Allergic/Immunologic, Gastrointestinal, Genitourinary, Musculoskeletal, Integumentary, Endocrine and Eyes/Ears/Nose/Throat Exam Surgical H&P Exam: Normal: HEENT, Normal: Heart, Normal: Lungs, Normal: Extremities, Normal: Abdomen, Normal: Skin and Normal: Neurological Plan Diagnosis/Plan: Unchanged I have reviewed the history and physical and performed a pertinent physical examination on my patient. No changes have occurred unless specified. Time Spent With Patient Time: Total time managing care of this patient today ____ minutes.
[2023-11-20 12:03] VITALS: BP 132/82; PULSE 77; RESP 18; TEMP 36.7; O2SAT 98; BMI 27.8
--- NOTE | 2023-11-20 12:44 | P.OP_ITS ---
Operative Note Operative Note Date of Service: 11/20/23 Narrative: Operative Information Procedure Description: EGD, Colonoscopy Indication: diarrhea Anesthesia: MAC FLEXIBLE TRANSORAL UPPER GASTROINTESTINAL ENDOSCOPY AND COLONOSCOPY PROCEDURE NOTE UPPER ENDOSCOPY Consent: Indications for the procedure and potential complications of bleeding, perforation, reaction to medications and missed diagnosis were discussed with the patient and informed consent was obtained. Instrument: Olympus GIF H 190 J mid size upper endoscope Monitoring: Vital signs and clinical assessment, continuous EKG monitoring, Pulse oximetry, Carbon Dioxide monitoring and blood pressure monitoring were done throughout the procedure. Procedure: The patient was placed in the left lateral decubitis position and pre-procedure medications were administered and a bite block was placed. The endoscope was inserted into the mouth and advanced under direct vision to the third part of duodenum. A careful inspection was made as the upper endoscope was withdrawn including a retroflexed examination of the proximal stomach; Findings and interventions are described below. Findings: Larynx:normal Esophagus: GE junction at 42 cm, diaphragm hiatus at 42 cm, bogginess and congestion at GEJ, bx taken from here and from distal and proximal esophagus. Some white patches noted but cleared with water irrigation Stomach: Patchy erythema. Biopsies were obtained. Grade 2 flap valve on retroflexed examination of the cardia. Duodenum: bulbar duodenitis, bx taken Intervention: Biopsies as noted above COLONOSCOPY Instrument: Olympus variable stiffness pediatric scope 190L Colonoscopy Monitoring: Vital signs and clinical assessment, continuous EKG monitoring, Pulse oximetry, Carbon Dioxide monitoring and blood pressure monitoring were done throughout the procedure. Colon withdrawal time was 13 minutes. Procedure: The patient was placed in the left lateral decubitis position and pre-procedure medications were administered. After a digital rectal examination of the ano-rectum, the video colonoscope was inserted into the rectum and advanced through the colon to the cecum/TI. The colonoscope was slowly withdrawn in a retrograde panoramic fashion and the colon mucosa was carefully examined including a retroflexed view of the rectum. Findings and interventions are described below. Procedure Difficulty: easy Findings: Terminal Ileum-normal, bx taken Cecum:normal Ascending Colon: normal, random bx taken Transverse Colon -normal Descending Colon:normal Sigmoid Colon: normal, random bx taken Rectum: Retroflexion with small internal hemorrhoids, grade I, random bx taken Anorectum - normal Colon preparation: [place] Bowel Preparation Scale Right colon; 1-2 Transverse colon: 2 Left colon; 2 (0 = Unprepared colon segment with mucosa not seen due to solid stool that cannot be cleared. 1 = Portion of mucosa of the colon segment seen, but other areas of the colon segment not well seen due to staining, residual stool and/or opaque liquid. 2 = Minor amount of residual staining, small fragments of stool and/or opaque liquid, but mucosa of colon segment seen well. 3 = Entire mucosa of colon segment seen well with no residual staining, small fragments of stool or opaque liquid) Impression and Post Procedure Diagnosis: Endoscopy Findings: gastritis duodenitis esophagitis Colonoscopy Findings: fair prep internal hemorrhoids Plan: Await Pathology results Repeat Colonoscopy in 1 year if ongoing sx de to fair prep in certain areas or earlier if clinically indicated High fiber diet leaflet avoid straining at stool, epsom salts and sitz bath, anusol supps or cream consider trial of PPI and see if helps his sx Above findings were reviewed with the patient and relevant handouts were provided if indicated.
[2023-11-20] MEDS: Lactated Ringers 1,000 ML 100 ML IVCONT (12:45)
[2023-11-20 13:43] VITALS: BP 107/62; PULSE 77; RESP 12; TEMP 36.1; O2SAT 94
[2023-11-20 13:58] VITALS: BP 98/53; PULSE 50; RESP 12; O2SAT 94
[2023-11-20 14:13] VITALS: BP 120/66; PULSE 69; RESP 16; TEMP 36.2; O2SAT 98
[2023-11-20 15:02] LABS: CDiff Gene PCR NEGATIVE (Negative)
[2023-11-21 10:04] LABS: Adenovirus F 40/41 Not Detected (Not Detect.); Astrovirus Not Detected (Not Detect.); Campylobacter Not Detected (Not Detect.); Cryptosporidium Not Detected (Not Detect.); Cyclospora cayetanensis Not Detected (Not Detect.); E. coli EAEC Not Detected (Not Detect.); E. coli EPEC Not Detected (Not Detect.); E. coli ETEC Not Detected (Not Detect.); E. coli STEC Not Detected (Not Detect.); Entamoeba histolytica Not Detected (Not Detect.); Giardia lamblia Not Detected (Not Detect.); Norovirus GI/GII Not Detected (Not Detect.); Plesiomonas shigelloides Not Detected (Not Detect.); Rotavirus A Not Detected (Not Detect.); Salmonella Not Detected (Not Detect.); Sapovirus Not Detected (Not Detect.); Shigella sp./EIEC Not Detected (Not Detect.); Vibrio Not Detected (Not Detect.); Vibrio Cholerae Not Detected (Not Detect.); Yersinia enterocolitica Not Detected (Not Detect.)
[2023-11-28 16:04] LABS: Lactoferrin, Fecal, Quant. <6.25 mcg/mL (<7.25)
== END 2023-11-20 14:25 | disposition home or self-care (01) ==
PROVIDERS: PCP Nurse Practitioner Family; Visit Provider Internal Medicine Gastroenterology
PROC: (CPT 43239; principal; 2023-11-20 13:50)
DX: K29.60 Other gastritis without bleeding (principal); K20.80 Other esophagitis without bleeding; K29.80 Duodenitis without bleeding; K22.89 Other specified disease of esophagus; K52.9 Noninfective gastroenteritis and colitis, unspecified; K64.0 First degree hemorrhoids
CPT/HCPCS: 43239; 45380; 83631; 87493; 87507; 88305; 88313; 88342; J1596; J2704

== ENCOUNTER → 2023-11-20 11:24 | Outpatient (BNV) | payer OTHER, SELFPAY | PROVIDERS: PCP Nurse Practitioner Family; Visit Provider Internal Medicine Gastroenterology | DX: K52.9 Noninfective gastroenteritis and colitis, unspecified (principal); K64.0 First degree hemorrhoids; K29.90 Gastroduodenitis, unspecified, without bleeding; K21.00 Gastro-esophageal reflux disease with esophagitis, without bleeding; K63.89 Other specified diseases of intestine | CPT/HCPCS: 43239; 45380 ==

== ENCOUNTER 2023-12-03 09:23 | Outpatient (AMB) | payer OTHER, SELFPAY ==
--- NOTE | 2023-12-03 09:24 | MHC.OFFVIS ---
Intake Vital Signs 12/03/23 09:25 Height 5 ft 9 in Weight 187 lb 6.287 oz BMI 27.7 BP 109/57 L Blood Pressure Location Lt brachial Position Sitting Pulse 51 Intake Visit Reasons: s/p egd/colon Intake Note: Marshall presents in the office as a follow up EGD and COLO. CC: He states that he is not having any concerns since the procedures. Emergency Care Tech Required: No Allergies clindamycin Allergy (Mild, Verified 12/03/23 09:25) Hives HPI HPI Comments History of Present Illness Details A 28-year-old male seen initially with chronic diarrhea acid reflux family history of IBD follows up after recent EGD colonoscopy He continues to have multiple urgent stools daily-with bloating gas Reviewed labs and stool studies-no findings to account for symptoms He had begun pantoprazole 40 mg Reviewed procedure report as well as pathology recommendations He is somewhat frustrated-dicyclomine, imodium not helpful- He has no abdominal pain hematemesis, hematochezia fever or chills [facility] Medical History (Updated 12/05/23 @ 10:19 by Nina Matias PA-C) IBS (irritable bowel syndrome) Surgical History Hx of colonoscopy History of esophagogastroduodenoscopy (EGD) Family History Father Substance use disorder Crohn's colitis Paternal Grandfather Substance use disorder Brother Substance use disorder Social History Housing: House Alcohol intake: current Alcohol intake frequency: 0-2 drinks per day Patient Tobacco Use Status: Former Tobacco user Years Smoked: 3 years e-Cigarette/Vaping Use: Never Used service: Yes Current occupational status: employed Current occupation: [employer] Current occupational exposures/hazards: Yes Cognitive needs: No Hearing needs: No Vision needs: Yes Review of Systems Const All systems reviewed & are unremarkable except as noted in HPI and below Card Denies chest pain and Denies dyspnea Resp Denies dyspnea GI Denies abdominal pain, Reports bloating, Reports excessive flatus and Reports loose stools Psych Reports anxiety Physical Exam Vital Signs: Last Vital Signs Pulse 51 12/03/23 09:25 BP 109/57 L 12/03/23 09:25 BMI result Body Mass Index 27.7 Const General: cooperative, healthy appearing, comfortable and no acute distress Orientation/consciousness: patient oriented x3 Limitations: no limitations Eyes Sclerae: sclerae normal Resp Effort & Inspection: normal respiratory effort and able to speak in complete sentences Skin General skin exam: no rashes or lesions noted Neuro General: patient oriented x3 Extrem General: Yes full ROM Psych Appearance: grossly normal and well kempt Mental Status: mental status grossly normal Speech and movement: Normal speech and movement present Affect: normal affect Thought process: Normal thought process present Thought content: Normal thought content present Insight: Good insight present (Psych) Judgement: Good judgement present (Psych) Results Reviewed Results Reviewed: Impression and Post Procedure Diagnosis: Endoscopy Findings: gastritis duodenitis esophagitis Colonoscopy Findings: fair prep internal hemorrhoids Plan: Await Pathology results Repeat Colonoscopy in 1 year if ongoing sx de to fair prep in certain areas or earlier if clinically indicated High fiber diet leaflet avoid straining at stool, epsom salts and sitz bath, anusol supps or cream consider trial of PPI and see if helps his sx : 1995 Submitted by: Liudmila Kay MD Copies to: Tigre Evangelista [facility]- MR #: [id number] Status: [facility] Collected: 11/20/23 Location: [facility] Received: 11/20/23 Diagnosis A. Colon, right, biopsy: Colonic mucosa within normal limits. B. Terminal ileum, biopsy: Terminal ileal mucosa within normal limits. C. Colon, left, biopsy: Colonic mucosa within normal limits. D. Rectum, biopsy: Rectal mucosa within normal limits. E. Duodenum, biopsy: Chronic inactive duodenitis. F. Stomach, biopsy: Oxyntic mucosa with mild chronic inactive inflammation; no Helicobacter organisms seen. G. GE junction, biopsy: - Cardiac-type mucosa with moderate chronic active inflammation; no intestinal metaplasia seen. - Active esophagitis with slough. H. Esophagus, distal, biopsy: Active esophagitis (few eosinophils and neutrophils). I. Esophagus, proximal, biopsy: Squamous epithelium within normal limits; no inflammation seen. Clinical History Pre-Op Dx: Noninfective gastroenteritis and colitis, unspecified Post-Op Dx: Internal hemorrhoids, gastritis, esophagitis, duodenitis Microscopic Description A-I. Microscopic sections examined. Chronic injury is present (E) and no metaplastic changes are seen (F, G) supported by AB/PAS stains; no Helicobacter organisms are seen, supported by H. pylori immunostain (F). Material Received A. Right side colon bx's B. TI bx's C. Left side colon bx's D. Rectal bx's E. Duodenum bx's F. Stomach bx's Patient: Marshall Zhong Age/Sex: 28/M MR#: [id number] Page 1 of 2 Assessment & Plan Assessment & Plan (1) Chronic diarrhea: Comment: Very pleasant, polite 28-year-old Gent chronic diarrhea family history of IBD Labs, stool studies, reviewed normal sed rate, stools negative to include school calprotectin- EGD colon- Kay- reviewed No improvement with Imodium, dicyclomine-some frustrated certainly understandable Code(s): K52.9 - Noninfective gastroenteritis and colitis, unspecified Plan: Xifaxan 2 weeks (2) Esophagitis: Code(s): K20.90 - Esophagitis, unspecified without bleeding Plan: Continue pantoprazole will reassess, monitor symptoms-in hopes to decrease dose and wean off Plan Continue pantoprazole Trial Xifaxan Orders: Orders Transglutaminase IgA 12/03/23 R19.7 - Diarrhea, unspecified Calprotectin, Fecal 12/03/23 R19.7 - Diarrhea, unspecified Gliadin Ab Panel 12/03/23 K52.9 - Noninfective gastroenteritis and colitis, unspecified Medications: New rifaximin 550 mg PO TID 14 days 42 tabs 0RF Refilled pantoprazole 40 mg PO DAILY 60 tabs 5RF Patient Instructions: Very pleasant 28-year-old Gent chronic diarrhea-despite Imodium, as well as dicyclomine. However he does have some anxiety may be functional- Will give trial of Xifaxan 550 mg t.i.d. for 2 weeks in hopes for movement-he will keep me informed-he is agreeable with the plan Encouraged to call questions or concerns Appreciate the opportunity assist in the care this pleasant Gent Coding Level of Care Code Est Pt Level 3 (31942) Diagnoses Chronic diarrhea K52.9 Esophagitis K20.90 Time Spent (min) 30
[2023-12-03 09:25] VITALS: BP 109/57; PULSE 51; BMI 27.7
== END 2023-12-03 10:12 | disposition home or self-care (01) ==
PROVIDERS: PCP Nurse Practitioner Family; Visit Provider Physician Assistant
DX: K52.9 Noninfective gastroenteritis and colitis, unspecified (principal); K20.90 Esophagitis, unspecified without bleeding
CPT/HCPCS: 99213

== ENCOUNTER → 2023-12-03 09:23 | Outpatient (BNVA) | payer OTHER, SELFPAY | PROVIDERS: PCP Nurse Practitioner Family; Visit Provider Physician Assistant | DX: K52.9 Noninfective gastroenteritis and colitis, unspecified (principal); K20.90 Esophagitis, unspecified without bleeding | CPT/HCPCS: 99212 ==

== ENCOUNTER 2024-02-01 12:00 | Outpatient (AMB) | payer OTHER, SELFPAY ==
[2024-02-01 12:49] VITALS: BP 92/60; PULSE 80; TEMP 36.7; O2SAT 97; BMI 27.0
--- NOTE | 2024-02-01 12:49 | MHC.OFFWIV ---
Intake Vital Signs 02/01/24 12:49 Height 5 ft 9 in Weight 183 lb BMI 27.0 BP 92/60 Blood Pressure Location Rt brachial Position Sitting Pulse 80 Pulse Source Pulse Oximeter Temp 98.1 F Temp Source Oral Pulse Oximetry (%) 97 Oxygen Delivery Method Room Air Intake Visit Reasons: EP lft shoulder pain Intake Note: Pt is here today c/o Lt shoulder and neck pain due to falling while playing soccer at work ([place]) Patient Tobacco Use Status: Former Tobacco user Allergies clindamycin Allergy (Mild, Verified 02/01/24 13:11) Hives Medication List - Last Reconciled 02/01/24 by Larisa Wilson, LIBRARY PARAPROFESSIONAL-BC dicyclomine 10 mg PO TID PRN pantoprazole 40 mg PO DAILY HPI HPI Comments History of Present Illness Details 28-year-old [place] here today with complaints of left shoulder pain. He reports that he was playing soccer yesterday and he fell with his left arm extended and landed on the ground he felt a pop and felt like the shoulder was displaced in an upward fashion. He also fell pins and needles in his hand at the time of the fall. This has since resolved. Since this time he has had pain in the shoulder. Using [id number] pain relievers with mild relief. Has limited range of motion due to pain. Reports that he did have issues with the shoulder in the past and actually just completed physical therapy. He denies any surgery on this shoulder. [facility] Medical History IBS (irritable bowel syndrome) Surgical History Hx of colonoscopy History of esophagogastroduodenoscopy (EGD) Family History Father Substance use disorder Crohn's colitis Paternal Grandfather Substance use disorder Brother Substance use disorder Social History Housing: House Alcohol intake: current Alcohol intake frequency: 0-2 drinks per day Patient Tobacco Use Status: Former Tobacco user Years Smoked: 3 years e-Cigarette/Vaping Use: Never Used service: Yes Current occupational status: employed Current occupation: [employer] Current occupational exposures/hazards: Yes Cognitive needs: No Hearing needs: No Vision needs: Yes Review of Systems Const All systems reviewed & are unremarkable except as noted in HPI and below Physical Exam Vital Signs: Last Vital Signs Temp 98.1 F 02/01/24 12:49 Pulse 80 02/01/24 12:49 BP 92/60 02/01/24 12:49 Pulse Ox 97 02/01/24 12:49 Oxygen Delivery Method Room Air 02/01/24 12:49 BMI result Body Mass Index 27.0 Extrem Shoulder/upper arm images: 1. Pain with palpation. No obvious joint deformity. No erythema, warmth, edema. Limited range of motion in all directions due to pain. Strength limited only by pain. Neurovascularly intact. Assessment & Plan Assessment & Plan (1) Left shoulder pain: Code(s): M25.512 - Pain in left shoulder Qualifiers: Chronicity: acute Qualified Code(s): M25.512 - Pain in left shoulder Plan: . This note is constructed using voice recognition software. While every effort has been made to ensure accuracy in community affairs manager, still errors may have been included Sometimes, these errors may affect the content or meaning of the given sentence . Total time spent caring for the patient today was 45 minutes. This includes time spent before the visit reviewing the chart, time spent during the visit, and time spent after the visit on documentation Orders: Orders XR shoulder LT min 2V Today M25.512 - Pain in left shoulder Referrals Orthopedics Referral M25.512 - Pain in left shoulder Medications: New ibuprofen 800 mg PO Q8H PRN 30 tabs 0RF pain tizanidine (Zanaflex) 2 mg (1/2 x 4 mg) PO BID 5 days PRN 5 tabs 0RF muscle spasticity Patient Instructions: Preliminary read of the x-ray of left shoulder done today by myself shows no fracture or dislocation, no obvious deformity. I have placed a referral to orthopedics for further evaluation and treatment. Advised to take ibuprofen 3 times a day as needed along with muscle relaxer. Gentle range of motion. Supportive care. Coding Level of Care Code Est Pt Level 5 (04045) Diagnoses Acute pain of left shoulder M25.512 Chronicity: acute
== END 2024-02-01 13:57 | disposition home or self-care (01) ==
PROVIDERS: PCP Nurse Practitioner Family; Visit Provider Nurse Practitioner Family
DX: M25.512 Pain in left shoulder (principal)
CPT/HCPCS: 99051; 99215

== ENCOUNTER 2024-02-01 13:18 | Outpatient (REF) | payer OTHER, SELFPAY ==
--- NOTE | ~2024-02-01 | XR_ITS ---
EXAMINATION: XR SHOULDER, LEFT CLINICAL INFORMATION: Reason for Exam M25.512 - Pain in left shoulder COMPARISON: None TECHNIQUE: Three views of the shoulder. FINDINGS: No acute fracture or dislocation. Joint spaces are maintained without significant degenerative change. Soft tissues are unremarkable. XR/XR shoulder LT min 2V IMPRESSION: * No acute osseous abnormality.
== END 2024-02-01 13:19 | disposition home or self-care (01) ==
LOC: HO.HMGCX 13:18
PROVIDERS: PCP Nurse Practitioner Family; Visit Provider Nurse Practitioner Family
DX: M25.512 Pain in left shoulder (principal)
CPT/HCPCS: 73030

== ENCOUNTER 2024-02-27 10:06 | Outpatient (AMB) | payer OTHER, SELFPAY ==
--- NOTE | 2024-02-27 10:18 | A.OFFVIS_ITS ---
Vital Signs 02/27/24 10:19 Height 5 ft 9 in Weight 183 lb BMI 27.0 Handedness Right Intake Visit Reasons: New Pt - left shoulder pain Intake Note: Marshall is a 28 year old right hand dominant male who presents today as a new patient for a evaluation of his left shoulder pain. DOI 01/31/24. Patient reports ongoing pain for about a month. He states that he was playing Frisbee and he went to catch it he landed with his left arm hyper extended. Patient states that his pain is on the anterior aspect of the shoulder and it radiates up to his neck. He expresses that his ROM is a little limited. Allergies clindamycin Allergy (Mild, Verified 02/27/24 10:18) Hives HPI HPI New Pt - left shoulder pain: Details: 28-year-old right hand dominant male who presents in the office today, as a new patient, for an evaluation of left shoulder pain. Patient [facility]24 with a complaint of left shoulder and neck pain status post a fall while playing soccer at work on 01/31/2024. Per the clinic note the patient fell with his left upper extremity extended. He reported the shoulder was displaced in an upward fashion. X-rays were obtained. He was prescribed Ibuprofen 800 mg PO Q8H PRN and Tizanidine 2 mg PO BID for 5 days. While in the office today the patient reports ongoing pain for about a month, since 01/2024. He reports he was playing frisbee and went to catch it and landed with his left arm hyperextended. He states he felt it pop with immediate numbness that was constant until he ?pulled his arm?. Since the arm pulled, he reports intermittent numbness. He claims his pain is along the anterior aspect of the left shoulder with radiation to his neck. He also reports slightly limited ROM due to pain. Patient reports an incident prior when he was doing martial arts and had a ?weird? hit when he dislocated his left shoulder, but was not seen in the ED. He reports he was ordered physical therapy. He states he had just completed his sessions of PT in 07/2023. Patient reports numbness has been present for a while, several years. He states this has increased with multiple injuries to the left shoulder. 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 [facility] Medical History IBS (irritable bowel syndrome) Surgical History Hx of colonoscopy History of esophagogastroduodenoscopy (EGD) Family History Father Substance use disorder Crohn's colitis Paternal Grandfather Substance use disorder Brother Substance use disorder Social History Housing: House Alcohol intake: current Alcohol intake frequency: 0-2 drinks per day Patient Tobacco Use Status: Former Tobacco user Years Smoked: 3 years e-Cigarette/Vaping Use: Never Used service: Yes Current occupational status: employed Current occupation: [employer] Current occupational exposures/hazards: Yes Cognitive needs: No Hearing needs: No Vision needs: Yes Review of Systems Const All systems reviewed & are unremarkable except as noted in HPI and below Physical Exam Vital Signs: BMI result Body Mass Index 27.0 Const General: cooperative and no acute distress Orientation/consciousness: patient oriented x3 Resp Effort & Inspection: normal respiratory effort and able to speak in complete sentences Cardio Peripheral pulses: Peripheral pulses 2+ throughout Skin General skin exam: no rashes or lesions noted Neuro General: patient oriented x3 Extrem Other: Left shoulder: Normal to inspection. No ecchymosis, erythema, or edema. Full shoulder ROM in all planes. Negative cross-body reach. Negative empty can. Negative drop arm. Negative sulcus sign. NVI. Assessment & Plan Assessment & Plan (1) Acute pain of left shoulder due to trauma: Code(s): M25.512 - Pain in left shoulder; G89.11 - Acute pain due to trauma Category: Medical (2) Radicular pain in left arm: Code(s): M79.2 - Neuralgia and neuritis, unspecified Category: Medical Plan Mr. Zhong is a 28-year-old right hand dominant male who presents in the office today, as a new patient, for an evaluation of left shoulder pain. Patient [facility]24 with a complaint of left shoulder and neck pain status post a fall while playing soccer at work on 01/31/2024. Per the clinic note the patient fell with his left upper extremity extended. He reported the shoulder was displaced in an upward fashion. X-rays were obtained. He was prescribed Ibuprofen 800 mg PO Q8H PRN and Tizanidine 2 mg PO BID for 5 days. While in the office today the patient reports ongoing pain for about a month, since 01/2024. He reports he was playing [employer] and went to catch it and landed with his left arm hyperextended. He states he felt it pop with immediate numbness that was constant until he ?pulled his arm?. Since the arm pulled, he reports intermittent numbness. He claims his pain is along the anterior aspect of the left shoulder with radiation to his neck. He also reports slightly limited ROM due to pain. Patient reports an incident prior when he was doing martial arts and had a ?weird? hit when he dislocated his left shoulder, but was not seen in the ED. He reports he was ordered physical therapy. He states he had just completed his sessions of PT in 07/2023. Patient reports numbness has been present for a while, several years. He states this has increased with multiple injuries to the left shoulder. 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 Patient will be referred for an EMG study to further evaluate the numbness in the left upper extremity. We will also order an MRI of the left shoulder to further evaluate the integrity and surrounding structures. The patient will call the office once both tests are obtained. My business card was given to the patient in the office today. Follow up will be after the results return from testing, or sooner if needed. X-rays of the left shoulder, obtained on 02/01/2024, revealed: No acute osseous abnormality. Orders: Orders MR shoulder LT wo con Today G89.11 - Acute pain due to trauma, M25.512 - Pain in left shoulder, M79.2 - Neuralgia and neuritis, unspecified NE electromyogram (EMG) Today G89.11 - Acute pain due to trauma, M25.512 - Pain in left shoulder, M79.2 - Neuralgia and neuritis, unspecified Patient Instructions: Scribed by Vielka Segovia medical officer, for Akanksha Fraga PA-C on 02/27/2024 at 10:27 am, EST. Coding Level of Care Code New Pt Level 4 (49905) Diagnoses Acute pain of left shoulder due to trauma M25.512; G89.11 Radicular pain in left arm M79.2
[2024-02-27 10:19] VITALS: BMI 27.0
== END 2024-02-27 10:50 | disposition home or self-care (01) ==
PROVIDERS: PCP Nurse Practitioner Family; Visit Provider Physician Assistant
DX: M25.512 Pain in left shoulder (principal); W19.XXXA Unspecified fall, initial encounter; Y93.66 Activity, soccer; M79.2 Neuralgia and neuritis, unspecified
CPT/HCPCS: 99204

== ENCOUNTER → 2024-02-27 10:06 | Outpatient (BNVA) | payer OTHER, SELFPAY | PROVIDERS: PCP Nurse Practitioner Family; Visit Provider Physician Assistant | DX: M25.512 Pain in left shoulder (principal); M79.2 Neuralgia and neuritis, unspecified; G89.11 Acute pain due to trauma | CPT/HCPCS: 99202 ==

== ENCOUNTER 2024-03-12 14:58 | Outpatient (AMB) | payer OTHER, SELFPAY ==
--- NOTE | 2024-03-12 15:02 | A.OFFPC_ITS ---
Vital Signs 03/12/24 15:03 Height 5 ft 9 in Weight 180 lb BMI 26.6 BP 100/68 Blood Pressure Location Rt brachial Position Sitting Pulse 78 Pulse Source Pulse Oximeter Pulse Oximetry (%) 98 Oxygen Delivery Method Room Air Intake Visit Reasons: 6 month fu Intake Note: Patient here to discuss neck pain and lack shoulder ROM. Allergies clindamycin Allergy (Mild, Verified 03/12/24 15:07) Hives Medication List - Last Reconciled 03/12/24 by DAVIE Guerra dicyclomine 10 mg PO TID PRN ibuprofen 800 mg PO Q8H PRN pantoprazole 40 mg PO DAILY tizanidine (Zanaflex) 2 mg (1/2 x 4 mg) PO BID PRN 5 days Tobacco use date assessed: 03/12/24 Dental Screening Dental Screen Date: 03/12/24 Did you have a dental visit in the last 12 months?: Yes Did you have a dental problem in the last 6 months where you did not have access to dental care?: No Was dental information given to patient?: Patient has dentist HPI 6 month fu HPI Details Pt reports that in November he was doing a fun day and make himself dizzy by spinning his head on a bat, and ran. He fell and landed on his left side and his head hit the ground. Pt had concussion symptoms soon after this incident (fogginess, giddiness, slight photophobia). These symptoms are now better. He now reports left neck pain and tightness. Denies any popping or cl icking or radicular symptoms of his BUE. ? small muscle tear. Will order XR of cervical spine. Will refer to chiropractor per pt's request. [facility] Medical History IBS (irritable bowel syndrome) Surgical History Hx of colonoscopy History of esophagogastroduodenoscopy (EGD) Family History Father Substance use disorder Crohn's colitis Paternal Grandfather Substance use disorder Brother Substance use disorder Social History Housing: House Alcohol intake: current Alcohol intake frequency: 0-2 drinks per day Patient Tobacco Use Status: Former Tobacco user Years Smoked: 3 years e-Cigarette/Vaping Use: Never Used service: Yes Current occupational status: employed Current occupation: [employer] Current occupational exposures/hazards: Yes Cognitive needs: No Hearing needs: No Vision needs: Yes Questionnaire Thrive Questionnaire Date Thrive assessed: 03/12/24 I am a: Patient What is your living situation today?: I have a steady place to live Within the past 12 months, did the food you bought not last and you didn't have the money to get more?: Never true Within the past 12 months, did you worry whether your food would run out before you got money to buy more?: Never true Do you have trouble paying for medicines?: No Do you have trouble getting transportation to medical appointments?: No Do you have trouble paying your heating and electricity bill?: No Do you have trouble taking care of your child, family member or friend?: No Do you have trouble with day-to-day activities such as bathing, preparing meals, shopping, managing finances, etc.?: No Are you currently unemployed and looking for a job?: No Are you interested in more education?: No Currently or been in a relationship where the following occur: I choose not to answer this question THRIVE Score: 0 AUDIT C Alcohol Use Questionnaire (AUDIT-C) 1. How often do you have a drink containing alcohol?: 2-3 times a week 2. How many drinks containing alcohol do you have on a typical day when you are drinking?: 1 or 2 3. How often do you have six or more drinks on one occasion?: Never Total Score: 3 Score Reviewed/Action Taken: No BAKARI-7 AMB Questionnaire BAKARI-7 Date BAKARI - 7 assessed: 03/12/24 Feeling nervous, anxious, or on edge: 3 = Nearly every day Not being able to stop or control worryin = More than half the days Worrying too much about different things: 2 = More than half the days Trouble relaxin = Nearly every day Being so restless that it is hard to sit still: 1 = Several days Becoming easily annoyed or irritable: 3 = Nearly every day Feeling afraid as if something awful might happen: 0 = Not at all Total BAKARI-7 score (0-4 normal; 5-9 mild; 10-14 moderate; 15-21 severe): 14 Source: Developed by Drs. Marty Mendes, Zoë Blake, Lee Latif and colleagues, with an educational morgan from [employer]. BAKARI-7 Assessment Billing BAKARI-7 Assessment Tool: BAKARI-7 Assessment 45390 Review of Systems Const Reports as per HPI Physical exam (Primary Care) Vital Signs: Last Vital Signs Pulse 78 03/12/24 15:03 BP 100/68 03/12/24 15:03 Pulse Ox 98 03/12/24 15:03 Oxygen Delivery Method Room Air 03/12/24 15:03 BMI result Body Mass Index 26.6 Tobacco/Smoking Status: Tobacco use Status Tobacco use date assessed 03/12/24 03/12/24 15:11 Patient Tobacco Use Status Former Tobacco user 03/12/24 15:03 e-Cigarette/Vaping Use Never Used 03/12/24 15:03 Thrive Assessment: Date of Thrive Assessment Date Thrive assessed 09/09/23 03/12/24 15:03 Currently or been in a relationship where the following occur: I choose not to answer this question Const General: cooperative Orientation/consciousness: patient oriented x3 Resp Effort & Inspection: normal respiratory effort Auscultation: clear to auscultation bilaterally Cardio Rate: regular rate Rhythm: regular rhythm Heart sounds: S1 normal heart sound present and S2 normal heart sound present Back/Spine/Pelvis Other: - spurlings, with turning head to left there is right lateral neck pain, muscular tissue feels tight and tenderness reported, not TTP Neuro General: patient oriented x3 Cranial nerves: Yes CN's II-XII intact bilaterally Psych Appearance: grossly normal Mental Status: mental status grossly normal Speech and movement: Normal speech and movement present Affect: normal affect Attitude: cooperative Thought process: Normal thought process present Thought content: Normal thought content present Insight: Good insight present (Psych) Judgement: Good judgement present (Psych) Assessment and Plan Assessment & Plan (1) Concussion: Code(s): S06.0XAA - Concussion with loss of consciousness status unknown, initial encounter Plan: XR ordered, referred to chiropractor, concussion symptoms are much better (2) Fall: Code(s): W19.XXXA - Unspecified fall, initial encounter Plan: XR ordered, referred to chiropractor (3) Cervical pain (neck): Code(s): M54.2 - Cervicalgia Plan The patient agreed to the use of a emergency medical dispatcher for this encounter. Scribed for DAVIE Eldridge by Griselda Russ emergency medical dispatcher, on 03/12/2024 at 15:30 EST. Orders: Orders Comprehensive [place]. Panel Fast Today Z00.00 - Encounter for general adult medical examination without abnormal findings UA CC w/rflx Micro + Cult Today Z00.00 - Encounter for general adult medical examination without abnormal findings Complete Blood Count Auto Diff Today Z00.00 - Encounter for general adult medical examination without abnormal findings TSH reflex Free T4 Today Z00.00 - Encounter for general adult medical examination without abnormal findings Lipid Panel Today Z00.00 - Encounter for general adult medical examination without abnormal findings Referrals Chiropractic Referral M54.2 - Cervicalgia, S06.0XAA - Concussion with loss of consciousness status unknown, initial encounter, W19.XXXA - Unspecified fall, initial encounter Coding Level of Care Code Est Pt Level 3 (24179) Diagnoses Concussion S06.0XAA Fall W19.XXXA Cervical pain (neck) M54.2 Additional Codes BAKARI-7 Assessment Billing - BAKARI-7 Assessment Tool: BAKARI-7 Assessment 11296 ([id number])
[2024-03-12 15:03] VITALS: BP 100/68; PULSE 78; O2SAT 98; BMI 26.6
== END 2024-03-12 15:58 | disposition home or self-care (01) ==
PROVIDERS: PCP Nurse Practitioner Family; Visit Provider Nurse Practitioner Family
DX: S06.0XAA Concussion with loss of consciousness status unknown, initial encounter (principal); W19.XXXA Unspecified fall, initial encounter; M54.2 Cervicalgia
CPT/HCPCS: 99213

== ENCOUNTER 2024-03-12 16:00 | Outpatient (REF) | payer OTHER, SELFPAY ==
--- NOTE | ~2024-03-12 | XR_ITS ---
EXAMINATION: XR CERVICAL SPINE CLINICAL INFORMATION: Fall. COMPARISON: None available. TECHNIQUE: 3 views of the cervical spine were obtained. FINDINGS: There are no prevertebral soft tissue or bony abnormalities demonstrated. No compression fractures or subluxations are identified. Alignment is maintained at the atlanto-axial articulation. The disc spaces are preserved. No endplate changes are seen. The prevertebral soft tissues are normal. XR/XR cervical spine 3V IMPRESSION: No significant radiographic abnormality.
== END 2024-03-12 16:01 | disposition home or self-care (01) ==
LOC: HO.HMGCX 16:00
PROVIDERS: PCP Nurse Practitioner Family; Visit Provider Nurse Practitioner Family
DX: S06.0XAD Concussion with loss of consciousness status unknown, subsequent encounter (principal)
CPT/HCPCS: 72040

== ENCOUNTER 2024-03-18 13:06 | Outpatient (REF) | payer OTHER, SELFPAY ==
--- NOTE | 2024-03-18 13:07 | EMG_ITS ---
Chief complaint: Left shoulder and arm pain Reason for referral: Evaluate for cervical radiculopathy or brachial plexopathy Referred by: Akanksha MCWILLIAMS Procedure done: Left upper extremity NCS/EMG Precautions and/or limitations: None The limb temperature was monitored continuously and remained between 32-36 degrees C during the performance of the NCS. Nerve Conduction Studies Anti Sensory Summary Table ?Stim Site NR Onset (ms) Norm Onset (ms) Peak (ms) Norm Peak (ms) O-P Amp (?V) Norm O-P Amp Site1 Site2 Delta-0 (ms) Dist (cm) Juvencio (m/s) Norm Juvencio (m/s) Left Lat Ante Brach Cutan Anti Sensory (Lat Forearm) Lat Biceps ? 0.9 1.3 18.0 Lat Biceps Lat Forearm 0.9 0.0 Left Med Ante Brach Cutan Anti Sensory (Med Forearm) Elbow ? 0.8 1.2 6.5 Elbow Med Forearm 0.8 0.0 Left Median Anti Sensory (2nd Digit) Wrist ? 2.2 2.9 <3.6 53.1 >10 Wrist 2nd Digit 2.2 14.0 64 Left Radial Anti Sensory (Thumb) Forearm ? 1.9 2.2 <3.1 14.7 Forearm Thumb 1.9 0.0 Left Ulnar Anti Sensory (5th Digit) Wrist ? 2.3 3.1 <3.7 22.4 >15.0 Wrist 5th Digit 2.3 14.0 61 Motor Summary Table ?Stim Site NR Onset (ms) Norm Onset (ms) O-P Amp (mV) Norm O-P Amp iAmp (mV) Amp (1st) (%) Site1 Site2 Delta-0 (ms) Dist (cm) Juvencio (m/s) Norm Juvencio (m/s) Left Median Motor (Abd Poll Brev) Wrist ? 3.3 <3.9 7.8 >4.5 10.7 100.0 Elbow Wrist 3.4 22.5 66 >45 Elbow ? 6.7 7.8 10.3 100.0 Left Ulnar Motor (Abd Dig Minimi) Wrist ? 2.6 <3.0 8.5 >5 10.9 100.0 B Elbow Wrist 3.2 21.0 66 >45 B Elbow ? 5.8 7.2 9.4 84.7 A Elbow B Elbow 1.5 10.0 67 >45 A Elbow ? 7.3 7.3 9.5 85.9 EMG ?Side Muscle Nerve Root Ins Act Fibs Psw Amp Dur Poly Recrt Int Pat Comment Left 1stDorInt Ulnar C8-T1 Nml Nml Nml Nml Nml 0 Nml Complete Left FlexCarRad Median C6-7 Nml Nml Nml Nml Nml 0 Nml Complete Left Biceps Musculocut C5-6 Nml Nml Nml Nml Nml 0 Nml Complete Left Triceps Radial C6-7-8 Nml Nml Nml Nml Nml 0 Nml Complete Left Deltoid Axillary C5-6 Nml Nml Nml Nml Nml 0 Nml Complete FINDINGS: All motor and sensory nerves tested showed normal latencies, amplitudes and conduction velocities. Concentric needle EMG was performed in selected muscles of the left upper extremity. Study did not reveal signs of electric abnormalities as shown in the table above. IMPRESSION: 1. This is a normal study. 2. There is no electrodiagnostic evidence for median neuropathy, ulnar neuropathy, brachial plexopathy, or cervical radiculopathy. Thank you for your kind referral. Juanita Sr MD, DOLLY Board Certified, [place] Board of Physical Medicine and Rehabilitation (ABPMR) Board Certified, [place] Board of Electrodiagnostic Medicine (ABEM) [place] [id number] [facility]
== END 2024-03-18 13:07 | disposition home or self-care (01) ==
LOC: HO.NEURO 13:06
PROVIDERS: PCP Nurse Practitioner Family; Visit Provider Physician Assistant
DX: M79.12 Myalgia of auxiliary muscles, head and neck (principal); M25.512 Pain in left shoulder; G89.11 Acute pain due to trauma
CPT/HCPCS: 95886; 95910

== ENCOUNTER → 2024-03-18 13:07 | Outpatient (BNV) | payer OTHER, SELFPAY | PROVIDERS: PCP Nurse Practitioner Family; Visit Provider Physical Medicine & Rehabilitation | DX: M25.512 Pain in left shoulder (principal); M79.602 Pain in left arm | CPT/HCPCS: 95886; 95910 ==

== ENCOUNTER 2024-04-08 07:12 | Outpatient (REF) | payer OTHER, SELFPAY ==
--- NOTE | ~2024-04-08 | MR_ITS ---
EXAMINATION: MR SHOULDER WITHOUT CONTRAST, LEFT CLINICAL INFORMATION: Left shoulder pain COMPARISON: Radiographs 02/01/2024 TECHNIQUE: MRI of the shoulder without contrast was performed on a high-field scanner. FINDINGS: ROTATOR CUFF: Intact. No muscle atrophy or fatty infiltration. BICEPS: Normal. CORACOACROMIAL ARCH: The undersurface of the acromion is curved with no subacromial spur. The acromioclavicular joint is normal. LABRUM/CAPSULE: Normal. GLENOHUMERAL JOINT/MARROW: No articular cartilage defect. No joint effusion. MR/MR shoulder LT wo con IMPRESSION: Unremarkable examination. No rotator cuff tear.
== END 2024-04-08 07:13 | disposition home or self-care (01) ==
LOC: HO.MRI 07:12
PROVIDERS: PCP Nurse Practitioner Family; Visit Provider Physician Assistant
DX: M79.2 Neuralgia and neuritis, unspecified (principal); M25.512 Pain in left shoulder; G89.11 Acute pain due to trauma
CPT/HCPCS: 73221

== ENCOUNTER 2024-05-06 14:22 | Emergency (ER) | payer OTHER, SELFPAY ==
[2024-05-06 14:27] VITALS: BP 144/75; PULSE 80; RESP 16; TEMP 36.8; O2SAT 99; BMI 26.6
--- NOTE | 2024-05-06 14:39 | ED.GENADULT ---
HPI - General Adult General Chief complaint: Abdominal Pain Stated complaint: vomiting dizzy nausea sweats Time Seen by Provider: 05/06/24 16:08 Source: patient Mode of arrival: ambulatory Limitations: no limitations History of Present Illness ED Provider: Dr. Fina Saldana HPI narrative: Patient comes to the emergency room complaining of nausea vomiting and diarrhea for 3 days. Patient states that approximately 3 days ago, he was invited over to a friend's house for dinner. Patient bit into a chicken burger and when he got to the middle, noted that the chicken was raw and bloody. Initially, patient did not think much of it, stopped eating it. Then the next day, patient started having nausea vomiting and diarrhea. Patient states that he has IBS, has chronic diarrhea. Patient states that he did not take loperamide because it makes came significantly constipated. Patient states that he has been trying to keep up with fluids but anything that he drinks either vomits or has diarrhea. Related Data Previous Rx's ?Medication ?Instructions ?Recorded dicyclomine 10 mg capsule 10 mg PO TID PRN ibs #90 caps 11/12/22 pantoprazole 40 mg tablet,delayed 40 mg PO DAILY #60 tabs 12/03/23 release ibuprofen 800 mg tablet 800 mg PO Q8H PRN pain #30 tabs 02/01/24 tizanidine 4 mg tablet (Zanaflex) 2 mg (1/2 x 4 mg) PO BID PRN 02/01/24 muscle spasticity 5 days #5 tabs loperamide 2 mg capsule (Imodium 2 mg PO Q4H PRN loose stool #20 05/06/24 A-D) caps prochlorperazine maleate 5 mg 5 mg PO QID PRN nausea and 05/06/24 tablet (Compazine) vomiting #20 tabs Allergies Allergy/AdvReac Type Severity Reaction Status Date / Time clindamycin Allergy Mild Hives Verified 05/06/24 14:29 Review of Systems Review of Systems: Constitutional : No Weight loss, No Fever, No Chills, No Night Sweats, No Fatigue, No Malaise ENT/Mouth : No Hearing loss, No Ear Pain, No Nasal Congestion, No Sinus Pain, No Hoarseness, No sore throat, No Rhinorrhea, No Swallowing Difficulty Eyes: No Eye Pain, No Swelling, No Redness, No Foreign Body, No Discharge, No Vision Changes Cardiovascular : No Chest Pain, No SOB, No Dyspnea on Exertion, No Orthopnea, No Edema, No Palpitations Respiratory : No Cough, No Sputum, No Wheezing, No Smoke Exposure, No Dyspnea Gastrointestinal : Complaining of nausea vomiting and diarrhea, No Constipation, No abdominal Pain, No Hematochezia, No Melena Genitourinary : no irregular bleeding, No Dysuria, No Urinary Frequency, No Hematuria, No Urinary Incontinence, No Urgency, No Flank Pain, No Urinary Flow Changes, No Hesitancy Musculoskeletal : No joint pain, No Myalgias, No Joint Swelling Skin : No Skin Lesions, No rash Neuro : No Weakness, No Numbness, No Paresthesias, No Loss of Consciousness, No Dizziness, No Headache Psych : No Anxiety/Panic, No Depression, No SI/HI/AH/VH, No Social Issues, Heme/Lymph: No Bruising, No Bleeding,No Lymphadenopathy Endocrine : No Polyuria, No Polydipsia, No Temperature Intolerance [facility] [place] Past Medical History Medical History IBS (irritable bowel syndrome) Surgical History (Reviewed 03/12/24 @ 15:45 by [facility] Hx of colonoscopy History of esophagogastroduodenoscopy (EGD) Family History Family History Father Substance use disorder Crohn's colitis Paternal Grandfather Substance use disorder Brother Substance use disorder Social History Social History Housing: House Alcohol intake: current Alcohol intake frequency: 0-2 drinks per day Patient Tobacco Use Status: Former Tobacco user Years Smoked: 3 years e-Cigarette/Vaping Use: Never Used Advance Directives: No Advance Directives Information Provided: Yes service: Yes Current occupational status: employed Current occupation: [employer] Current occupational exposures/hazards: Yes Cognitive needs: No Hearing needs: No Vision needs: Yes Physical Exam ED Vital Signs: Vital Signs - 24 hr 05/06/24 14:27 05/06/24 16:00 05/06/24 18:00 Temperature 98.3 F 98.2 F 98.2 F Pulse Rate 80 58 82 Respiratory Rate 16 18 18 Blood Pressure 144/75 H 103/62 112/84 Pulse Oximetry 99 100 99 Oxygen Delivery Method Room Air Room Air Room Air BMI result Body Mass Index 26.6 Const Other: Appearance: Alert. Oriented X3. No acute distress. Eyes: Pupils equal, round and reactive to light. ENT: Pharynx normal. Neck: Normal inspection. Neck supple. No lymph nodes noted. No crepitus CVS: Normal heart rate and rhythm. Pulses normal. Normal S1 and S2 Respiratory: No respiratory distress. Breath sounds normal. No Wheezing. No rales Abdomen: Soft and nontender. No rigidity. No distention. Skin: Skin warm and dry. Normal skin color. Normal skin turgor. Extremities: No lower extremity edema. No Lacerations. No Rash Neuro: Oriented X 3. No motor deficit. No sensory deficit. Moving all extremities. No slurred speech. CN 2 through 12 grossly intact Psych: calm, cooperative, normal affect Course Course Course Narrative: This is a Rapid Medical Examination (RME) performed by Jay Birmingham PA-C in triage. Full HPI, ROS, assessment and treatment plan per primary provider in the Main ED. 28-year-old male here for eval of epigastric abdominal pain, nausea/vomiting/diarrhea x3 days. Reports associated headache, myalgias, dizziness, and decreased PO intake. Admits to eating raw chicken 1 week ago. + epigastric region ttp Plan: labs, viral serology Medications Administered Discontinued Medications Generic Name Dose Route Start Last Admin Trade Name Freq PRN Reason Stop Dose Admin Sodium Chloride 1,000 mls @ 999 mls/hr 05/06/24 16:21 05/06/24 17:06 Ns IVCONT 05/06/24 17:21 999 mls/hr .Q1H1M ONE Administration Loperamide HCl 4 mg 05/06/24 16:21 05/06/24 17:06 Loperamide Hcl 2 Mg Capsule PO 05/06/24 16:22 4 mg ONCE ONE Administration Prochlorperazine Edisylate 10 mg 05/06/24 16:21 05/06/24 17:06 Prochlorperazine Edisylate 10 Mg/2 Ml Vial IVPUSH 05/06/24 16:22 10 mg ONCE ONE Administration Medical Decision Making Medical Decision Making [facility] Narrative: My interpretation of labs: No significant abnormality in hematology and chemistry, patient a bit dehydrated, lipase and LFTs normal, COVID and flu negative -patient was given a L of normal saline, chlorpromazine and Imodium 4 mg. -a stool panel was ordered. However, patient was unable to provide a sample, no longer having diarrhea. -patient's vitals stable, states that he feels much better, no nausea vomiting or abdominal pain or dizziness, patient states that he feels well and is ready to be discharged Differential Diagnosis Differential Diagnoses: The differential diagnosis associated with the presentation includes (Gastritis, gastroenteritis, Salmonella) Lab Data MDM Lab Attestation statement: I reviewed the patient's lab results. 05/06/24 14:36 05/06/24 14:36 Labs: Lab Results 05/06/24 Range/Units 14:36 WBC 3.1 L (4.8-10.8) X10*3/uL RBC 4.66 (4.60-5.80) X10*6/uL Hgb 13.4 L (14.0-18.0) g/dl Hct 39.1 L (42.0-52.0) % MCV 83.9 (80.0-98.0) fL MCH 28.8 (27.0-33.0) pg MCHC 34.3 (31.0-36.0) g/dl RDW 12.1 (11.0-16.0) % Plt Count 192 (160-400) X10*3/uL MPV 9.2 L (9.4-12.4) fL Immature Gran % (Auto) 0.3 (0.0-0.4) % Neut % (Auto) 51.0 (45-73) % Lymph % (Auto) 32.8 (20-40) % Toole % (Auto) 14.6 H (2-11) % Eos % (Auto) 1.0 (0-4) % Baso % (Auto) 0.3 (0-2) % Lymph # (Auto) 1.0 L (1.2-4.9) X10*3/uL Toole # (Auto) 0.5 (0.1-1.2) X10*3/uL Eos # (Auto) 0.0 (0.0-0.4) X10*3/uL Baso # (Auto) 0.0 (0.0-0.2) X10*3/uL Abs Immat Gran (auto) 0.01 (0.00-0.03) X10*3/uL Absolute Neuts (auto) 1.6 L (2.0-8.3) x10*3/uL Absolute Nucleated RBC 0.000 (0.0-0.012) X10*3/uL Nucleated RBC % (auto) 0.0 (0.0-0.2) /100WBC Sodium 140 (135-145) mmol/L Potassium 3.7 (3.3-5.1) mmol/L Chloride 105 (96-108) mmol/L Carbon Dioxide 30 H (22-29) mmol/L Anion Gap 9 L (12-20) BUN 10 (9-16) mg/dL Creatinine 1.18 (0.5-1.4) mg/dL Estim Creat Clear Calc 94.0 Estimated GFR > 60 Random Glucose 86 (60-115) mg/dL Calcium 9.0 (8.4-10.2) mg/dL Magnesium 2.2 (1.6-2.6) mg/dL Total Bilirubin 0.4 (0.0-1.0) mg/dL AST 23 (5-37) U/L ALT 23 (0-40) U/L Alkaline Phosphatase 50 (39-117) U/L Total Protein 7.1 (6.5-8.0) g/dL Albumin 4.2 (3.5-5.0) g/dL Lipase 14 (8-78) U/L COVID-19 (TAYA) Negative (Negative) COVID-19 Clin Com See Note Influenza Type A (HENRY) Negative (Negative) Influenza Type B (HENRY) Negative (Negative) Influenza A & B Note See Note Critical Care Time Critical Care Time Critical Care Time: Yes Total Critical Care Time: 30 Attestation: I have personally provided critical care time. Time includes review of lab data, radiology results, discussion with consultants, and monitoring for potential decompensation. Intervention performed as documented. Discharge Plan Discharge Clinical Impression: Nausea vomiting and diarrhea Patient Disposition: Home, Self-Care Instructions: Acute Nausea and Vomiting (ED) Additional Instructions: Please follow-up with your primary care physician tomorrow. If you have any worsening or new symptoms, please return to the emergency room or call 911 Prescriptions: New loperamide [Imodium A-D] 2 mg capsule 2 mg PO Q4H PRN (Reason: loose stool) Qty: 20 0RF Rx Instructions: administer after each loose stool until symptoms controlled; do not exceed 8 mg per 24 hrs prochlorperazine maleate [Compazine] 5 mg tablet 5 mg PO QID PRN (Reason: nausea and vomiting) Qty: 20 0RF No Action ibuprofen 800 mg tablet 800 mg PO Q8H PRN (Reason: pain) Qty: 30 0RF tizanidine [Zanaflex] 4 mg tablet 2 mg PO BID PRN (Reason: muscle spasticity) 5 Days Qty: 5 0RF dicyclomine 10 mg capsule 10 mg PO TID PRN (Reason: ibs) Qty: 90 0RF Rx Instructions: 1 tab po- may increase if need- pantoprazole 40 mg tablet,delayed release (DR/EC) 40 mg PO DAILY Qty: 60 5RF Stand Alone Forms: Work/School Release Print Language: Yi
[2024-05-06 14:42] LABS: MANUAL DIFF FLAG NO
[2024-05-06 14:50] LABS: Basophils Percent Auto 0.3 % (0-2); Hematocrit 39.1 % (42.0-52.0); Hemoglobin 13.4 g/dl (14.0-18.0); Imm Gran Abs Auto 0.01 X10*3/uL (0.00-0.03); Imm Gran Pct Auto 0.3 % (0.0-0.4); Lymphocytes Percent Auto 32.8 % (20-40); Mean Corpuscular HGB Conc 34.3 g/dl (31.0-36.0); Mean Corpuscular Hemoglobin 28.8 pg (27.0-33.0); Mean Corpuscular Volume 83.9 fL (80.0-98.0); Mean Platelet Volume 9.2 fL (9.4-12.4); Monocytes Absolute Auto 0.5 X10*3/uL (0.1-1.2); Monocytes Percent Auto 14.6 % (2-11); Neutrophils Absolute Auto 1.6 x10*3/uL (2.0-8.3); Platelet Count 192 X10*3/uL (160-400); Red Blood Count 4.66 X10*6/uL (4.60-5.80); Red Cell Distribution Width 12.1 % (11.0-16.0); White Blood Count 3.1 X10*3/uL (4.8-10.8)
[2024-05-06 15:01] LABS: Alanine Aminotransferase 23 U/L (0-40); Albumin Level 4.2 g/dL (3.5-5.0); Alkaline Phosphatase 50 U/L (39-117); Anion Gap 9 (12-20); Aspartate Amino Transferase 23 U/L (5-37); Bilirubin Total 0.4 mg/dL (0.0-1.0); Blood Urea Nitrogen 10 mg/dL (9-16); Carbon Dioxide 30 mmol/L (22-29); Chloride 105 mmol/L (96-108); Estimated Glomerular Filt Rate > 60; Glucose Random 86 mg/dL (60-115); Lipase 14 U/L (8-78); Magnesium 2.2 mg/dL (1.6-2.6); Potassium 3.7 mmol/L (3.3-5.1); Sodium 140 mmol/L (135-145); Total Protein 7.1 g/dL (6.5-8.0)
[2024-05-06 15:13] LABS: COVID-19 Test Negative (Negative); IDNOW Serial# 08D9AD1C
[2024-05-06 15:18] LABS: IDNOW Serial# 152EDE1D; Influenza A Negative (Negative); Influenza B2 Negative (Negative)
[2024-05-06 16:00] VITALS: BP 103/62; PULSE 58; RESP 18; TEMP 36.8; O2SAT 100
[2024-05-06] MEDS: Prochlorperazine Edisylate 10 MG/2 ML VIAL IVPUSH (17:06)
[2024-05-06] MEDS: Loperamide HCl 2 MG CAPSULE 4 MG PO (17:06)
[2024-05-06] MEDS: 0.9 % Sodium Chloride 1,000 ML 999 ML IVCONT (17:06)
[2024-05-06 18:00] VITALS: BP 112/84; PULSE 82; RESP 18; TEMP 36.8; O2SAT 99
[2024-05-06 19:13] VITALS: BP 112/84; PULSE 82; RESP 18; TEMP 36.8; O2SAT 99
== END 2024-05-06 19:13 | disposition home or self-care (01) ==
PROVIDERS: Physician Assistant Medical; Emergency Provider Emergency Medicine; PCP Nurse Practitioner Family
DX: R11.2 Nausea with vomiting, unspecified (principal); R19.7 Diarrhea, unspecified; R42 Dizziness and giddiness; Z11.52 Encounter for screening for COVID-19; Z87.891 Personal history of nicotine dependence; Z79.899 Other long term (current) drug therapy
CPT/HCPCS: 36415; 80053; 83690; 83735; 85025; 87502; 87635; 96374; 99284; J0737

== ENCOUNTER 2024-09-02 09:53 | Emergency (ER) | payer OTHER, SELFPAY ==
--- NOTE | ~2024-09-02 | XR_ITS ---
EXAMINATION: XR ANKLE, LEFT CLINICAL INFORMATION: sports injury/pain COMPARISON: None available. TECHNIQUE: AP, lateral, and mortise views of the left ankle. FINDINGS: No fracture, dislocation, or suspicious focal bony lesion. Normal alignment. The ankle mortise is intact. The talar dome is normal. Subtalar joints and the calcaneus appear normal. The midfoot appears normal. Os trigonum noted. Soft tissues appear normal. XR/XR ankle LT min 3V IMPRESSION: No acute findings left ankle. Electronically signed by: Titi Roper MD 09/02/2024 12:02 PM BRE
--- NOTE | ~2024-09-02 | XR_ITS ---
EXAMINATION: XR FOOT, LEFT CLINICAL INFORMATION: pain COMPARISON: September 02, 2024 ankle TECHNIQUE: AP, lateral, and oblique views of the left foot. FINDINGS: There is osseous fragment visualized at the posterior aspect of talus most likely small avulsion fragment, seen on images of the ankle also. There are no other fractures identified. The osseous fragment measured approximately 0.6 cm. XR/XR foot LT min 3V IMPRESSION: Most likely avulsion fragment at the posterior aspect of the talus, correlate with clinical history of pain Electronically signed by: Zainab Prescott MD 09/02/2024 03:42 PM EST
--- NOTE | ~2024-09-02 | XR_ITS ---
EXAMINATION: XR KNEE, LEFT CLINICAL INFORMATION: sports injury, pain COMPARISON: None available. TECHNIQUE: Three views of the left knee. FINDINGS: No fracture or joint effusion. Alignment is anatomic. Joint spaces are maintained. No abnormal soft tissue calcification. XR/XR knee LT 4V IMPRESSION: No acute findings left knee. Electronically signed by: Titi Roper MD 09/02/2024 12:03 PM [facility] [place]
--- NOTE | ~2024-09-02 | US_ITS ---
EXAMINATION: ULTRASOUND EXTREMITY CLINICAL INFORMATION: Injury with question of Achilles tendon rupture COMPARISON: Ankle radiograph 09/02/2024 TECHNIQUE: A high-frequency ultrasound transducer was used to examine the area of clinical concern. FINDINGS: The included portion of the Achilles tendon appears normal. No mass lesions or fluid collections are seen. The Achilles insertion on the calcaneus is not included in the scope of this exam. US/US extremity nonvascular IMPRESSION: No evidence of Achilles tendon rupture in the imaged portions of the Achilles tendon.. Electronically signed by: Deyvi Baker MD 09/02/2024 05:25 PM BRE
[2024-09-02 10:07] VITALS: BP 123/69; PULSE 100; RESP 16; TEMP 36.3; O2SAT 98; BMI 26.6
--- NOTE | 2024-09-02 12:16 | ED.LOWEXIN ---
HPI - Extremity Injury (Lower) General Chief Complaint: Extremity Injury, Lower Stated Complaint: L foot injury Time Seen by Provider: 09/02/24 12:07 Source: patient and RN notes reviewed Mode of arrival: ambulatory Limitations: no limitations History of Present Illness ED Provider: Oriana Thompson PA-C HPI Narrative: This is a 29-year-old male who presents emergency department with complaints of left ankle pain status post football injury which occurred today. Patient states that he was playing flag football, when he planted his left foot, and felt his knee buckle backwards. He felt pain in his left knee as well as his left ankle. He is unsure exactly what happened to his ankle however he notes that he does have pain in his region. He states that after the injury, he has had difficulty with weight-bearing secondary to the pain in his left ankle. Has a history of injury to his left knee however is more focused on pain in his left ankle. Denies LOC or hitting his head. He went to the personal trainer where they wrapped his ankle, however he states that this is only caused increased pain. He took Tylenol prior to the flag football game in anticipation of injuring himself. Other complaints or concerns at this time. MD complaint: knee injury and ankle injury Onset (ago): hour(s) Place: street/outdoors Relieving factors: immobilization and rest Exacerbating factors: weight bearing, movement and palpation Context: fall and running Associated symptoms: swelling Other symptoms: none Related Data Previous Rx's ?Medication ?Instructions ?Recorded dicyclomine 10 mg capsule 10 mg PO TID PRN ibs #90 caps 11/12/22 pantoprazole 40 mg tablet,delayed 40 mg PO DAILY #60 tabs 12/03/23 release ibuprofen 800 mg tablet 800 mg PO Q8H PRN pain #30 tabs 02/01/24 tizanidine 4 mg tablet (Zanaflex) 2 mg (1/2 x 4 mg) PO BID PRN 02/01/24 muscle spasticity 5 days #5 tabs loperamide 2 mg capsule (Imodium 2 mg PO Q4H PRN loose stool #20 05/06/24 A-D) caps prochlorperazine maleate 5 mg 5 mg PO QID PRN nausea and 05/06/24 tablet (Compazine) vomiting #20 tabs acetaminophen 500 mg tablet 1,000 mg (2 x 500 mg) PO Q8H PRN 09/02/24 (Tylenol Extra Strength) pain #30 tabs ibuprofen 600 mg tablet 600 mg PO Q6H PRN pain #30 tabs 09/02/24 oxycodone 5 mg tablet 5 mg PO Q6H PRN severe pain (scale 09/02/24 score 7-10) #10 tabs Allergies Allergy/AdvReac Type Severity Reaction Status Date / Time clindamycin Allergy Mild Hives Verified 09/02/24 10:09 Review of Systems Review of Systems: Yes all other systems are reviewed and are negative Constitutional: Constitutional: Reports as per [facility] Past Medical History Medical History IBS (irritable bowel syndrome) Surgical History Hx of colonoscopy History of esophagogastroduodenoscopy (EGD) Family History Family History Father Substance use disorder Crohn's colitis Paternal Grandfather Substance use disorder Brother Substance use disorder Social History Social History Housing: House Alcohol intake: current Alcohol intake frequency: 0-2 drinks per day Patient Tobacco Use Status: Former Tobacco user Years Smoked: 3 years e-Cigarette/Vaping Use: Never Used Advance Directives: No Advance Directives Information Provided: Yes service: Yes Current occupational status: employed Current occupation: [employer] Current occupational exposures/hazards: Yes Cognitive needs: No Hearing needs: No Vision needs: Yes Physical Exam Vital Signs: Vital Signs: Last Vital Signs Temp 97.6 F 09/02/24 18:30 Pulse 59 09/02/24 18:30 Resp 16 09/02/24 18:30 BP 113/70 09/02/24 18:30 Pulse Ox 99 09/02/24 18:30 O2 Del Method Room Air 09/02/24 18:30 BMI result Body Mass Index 26.6 Const: General: cooperative, comfortable and no acute distress Orientation/consciousness: patient oriented x3 Limitations: no limitations HEENT: Head: Yes normal to inspection, Yes normocephalic and Yes atraumatic Ears: hearing grossly normal bilaterally General nose exam: Normal external nose present Face and sinus: Yes normal facial exam Mouth: Normal oral and palatal mucosa present, oropharynx normal and moist mucous membranes Throat: Yes posterior oropharynx normal Eyes: General: appearance normal, both eyes and all related structures Eyelids: Yes eyelids normal Conjunctivae: conjunctivae normal Sclerae: sclerae normal Pupils: Equal, round and reactive pupils present EOM: EOMs intact bilaterally Neck: Neck: Yes normal visual inspection, Yes full ROM and Yes no lymphadenopathy Lymphatic: no lymphadenopathy noted Chest: Chest palpation & inspection: normal inspection of the chest Resp: Effort & Inspection: normal respiratory effort and able to speak in complete sentences Auscultation: clear to auscultation bilaterally Cardio: Rate: regular rate Rhythm: regular rhythm GI: Inspection: Yes normal to inspection Skin: General skin exam: no rashes or lesions noted Trauma: no lacerations or abrasions Wounds: no wounds Neuro: General: patient oriented x3 and moves all extremities Cranial nerves: Yes Equal, round and reactive pupils present Extrem: Other: Left ankle with moderate edema noted to the lateral malleolus with tenderness palpation along this region. He also has tenderness palpation along the dorsal aspect of the medial distal tibia, diminished Shirley's sign on the left however still intact. Strong DP pulse. No open wounds or lacerations. Nontender Achilles tendon. Strong DP pulse. General: Yes normal to inspection Right upper extremity: normal to inspection Left upper extremity: normal to inspection Right lower extremity: normal to inspection Course Reevaluation(s) Reevaluation #1: Ultrasound finally returns, revealing no evidence of Achilles tendon rupture however not visualized overlying the insertion site which is where I am questioning the Achilles tendon rupture. Discussed case with the Akanksha Fraga. Patient placed in posterior splint at 45?. He was given crutches. Given strict return precautions. He will follow-up with orthopedist on Saturday. Discharged on ibuprofen, Tylenol, as well as oxycodone. Advised to only take the oxycodone as needed for severe pain only. Advised that we can not refill this medication from the emergency room. Warned of all side effects of this medication. Patient stable for discharge. Medications Administered Discontinued Medications Generic Name Dose Route Start Last Admin Trade Name Freq PRN Reason Stop Dose Admin Ibuprofen 600 mg 09/02/24 12:39 09/02/24 12:54 Ibuprofen 600 Mg Tablet PO 09/02/24 12:40 600 mg ONCE ONE Administration Oxycodone HCl 5 mg 09/02/24 12:39 09/02/24 12:54 Oxycodone Hcl Immed Release 5 Mg Tablet PO 09/02/24 12:40 5 mg ONCE ONE Administration Medical Decision Making Medical Decision Making [facility] Narrative: This is a 29-year-old male who presents emergency department with complaints of left ankle pain status post physical injury which occurred today. Patient states that he has had left ankle pain. On arrival, left lateral ankle is edematous, with tenderness palpation, he also has tenderness palpation along the talar region. Shirley test is intact however seems to be diminished. He does not have tenderness along the Achilles tendon. On arrival, vital signs within normal limits. He denies hitting his head or LOC. X-ray of the ankle and knee were performed, which were read as unremarkable however I reviewed x-rays and question a posterior talar fracture, therefore a foot x-ray was performed. He has a diminished Shirley tested in the left, therefore Achilles tendon injury is a possibility. Given this finding, will obtain ultrasound of the Achilles tendon to rule out rupture. Differential Diagnosis Differential Diagnoses: The differential diagnosis associated with the presentation includes Fracture, contusion, sprain, strain, Achilles tendon rupture Admission/Observation Consideration of admission/observation: Escalation of care including admission/observation considered Consult Healthcare Provider Management of the patient was discussed with: Director Of Accounting Discussed case with Akanksha Fraga Lab Data MDM Lab Attestation statement: I reviewed the patient's lab results. Radiology Impression Discussion of test interpretation with radiology: I have reviewed the radiologist's reading. Radiologist Impression: US/US extremity nonvascular IMPRESSION: No evidence of Achilles tendon rupture in the imaged portions of the Achilles tendon.. Electronically signed by: Deyvi Baker MD 09/02/2024 05:25 PM EST RP Dictated By: Deyvi Baker MD XR/XR foot LT min 3V IMPRESSION: Most likely avulsion fragment at the posterior aspect of the talus, correlate with clinical history of pain Electronically signed by: Zainab Prescott MD 09/02/2024 03:42 PM EST RP Dictated By: Zainab Prescott MD XR/XR knee LT 4V IMPRESSION: No acute findings left knee. Electronically signed by: Titi Roper MD 09/02/2024 12:03 PM EST RP Dictated By: Titi Roper MD XR/XR ankle LT min 3V IMPRESSION: No acute findings left ankle. Electronically signed by: Titi Roper MD 09/02/2024 12:02 PM EST RP Dictated By: Titi Roper MD Procedures Orthopedic Splinting/Casting Injury #1: Side: left Lower Extremity Injury Location: lower leg Lower Extremity Immobilizer: posterior splint Other Orthopedic Equipment: crutches Additional Comments: Posterior splint with 45 degree flexion Discharge Plan Discharge Clinical Impression: Strain of left Achilles tendon Avulsion fracture of talus Qualifiers: Encounter type: initial encounter Fracture type: closed Laterality: left Patient Disposition: Home, Self-Care Instructions: Crutch Instructions (ED), Talar Fracture in Adults (ED), Foot Fracture in Adults (ED), Avulsion Fracture (ED) Additional Instructions: You were seen in the emergency department due to left ankle pain. Your x-ray reveals a fracture overlying the talus, which is a part of your foot. Your ultrasound does not show a rupture of your Achilles tendon however this was not well visualized on the ultrasound. Please wear splint until you follow-up with the orthopedist. Do not get splint wet. You need to be nonweightbearing. Do not put any weight on your left leg. Keep your leg elevated. Alternate between ibuprofen and Tylenol as needed for pain and symptoms. Please take oxycodone as needed for severe pain. Only use this as needed. Please be advised that this is addictive, please only use for severe pain only. Please be advised that this also can cause drowsiness, do not drink alcohol or drive while taking this medication. This also can cause constipation. You can not have this medication refilled from the emergency room therefore follow-up with your PCP as needed. If any new or worsening symptoms occur including but not limited to severe pain, decreased sensation in your toes, discoloration of your toes, were feeling as though the splint is too tight, please seek emergent care. Stay off your feet, you can still perform activities with your upper extremities as tolerated. Prescriptions: New ibuprofen 600 mg tablet 600 mg PO Q6H PRN (Reason: pain) Qty: 30 0RF acetaminophen [Tylenol Extra Strength] 500 mg tablet 1,000 mg PO Q8H PRN (Reason: pain) Qty: 30 0RF oxycodone 5 mg tablet 5 mg PO Q6H PRN (Reason: severe pain (scale score 7-10)) Qty: 10 0RF Rx Instructions: Partial Fill upon patient request. No Action loperamide [Imodium A-D] 2 mg capsule 2 mg PO Q4H PRN (Reason: loose stool) Qty: 20 0RF Rx Instructions: administer after each loose stool until symptoms controlled; do not exceed 8 mg per 24 hrs prochlorperazine maleate [Compazine] 5 mg tablet 5 mg PO QID PRN (Reason: nausea and vomiting) Qty: 20 0RF ibuprofen 800 mg tablet 800 mg PO Q8H PRN (Reason: pain) Qty: 30 0RF tizanidine [Zanaflex] 4 mg tablet 2 mg PO BID PRN (Reason: muscle spasticity) 5 Days Qty: 5 0RF dicyclomine 10 mg capsule 10 mg PO TID PRN (Reason: ibs) Qty: 90 0RF Rx Instructions: 1 tab po- may increase if need- pantoprazole 40 mg tablet,delayed release (DR/EC) 40 mg PO DAILY Qty: 60 5RF Referrals: [facility] [Provider Group] Stand Alone Forms: Work/School Release Interventions: ED Discharge Assessment Last Done: 09/02/24 18:30 Discharge Date/Time: 09/02/24 18:31 Print Language: [place]
[2024-09-02] MEDS: oxyCODONE HCl Immed Release 5 MG TABLET PO (12:54)
[2024-09-02] MEDS: Ibuprofen 600 MG TABLET PO (12:54)
[2024-09-02 15:51] VITALS: BP 113/70; PULSE 59; RESP 16; TEMP 36.4; O2SAT 99
[2024-09-02 18:30] VITALS: BP 113/70; PULSE 59; RESP 16; TEMP 36.4; O2SAT 99
== END 2024-09-02 18:31 | disposition home or self-care (01) ==
PROVIDERS: Emergency Provider Emergency Medicine Emergency Medical Services; PCP Nurse Practitioner Family
DX: S86.012A Strain of left Achilles tendon, initial encounter (principal); S92.152A Displaced avulsion fracture (chip fracture) of left talus, initial encounter for closed fracture; X50.1XXA Overexertion from prolonged static or awkward postures, initial encounter; Y93.62 Activity, american flag or touch football; Y92.321 Football field as the place of occurrence of the external cause; Y99.9 Unspecified external cause status
CPT/HCPCS: 29515; 73564; 73610; 73630; 76882; 99283; 99284

== ENCOUNTER → 2024-09-02 10:21 | Outpatient (BNV) | payer OTHER, SELFPAY | PROVIDERS: PCP Nurse Practitioner Family; Visit Provider Radiology Diagnostic Radiology | DX: M25.572 Pain in left ankle and joints of left foot (principal); M25.562 Pain in left knee | CPT/HCPCS: 73564; 73610 ==

== ENCOUNTER 2024-09-08 12:56 | Outpatient (AMB) | payer OTHER, SELFPAY ==
--- NOTE | 2024-09-08 13:31 | AM.OFFWIN_ITS ---
Intake Vital Signs 09/08/24 13:35 Height 5 ft 9 in Weight 180 lb BMI 26.6 BP 110/68 Blood Pressure Location Rt brachial Position Sitting Pulse 68 Pulse Source Pulse Oximeter Pulse Oximetry (%) 98 Oxygen Delivery Method Room Air Intake Visit Reasons: EP-lt heel fracture/pain Intake Note: Patient here for left heel fracture that happened about 1 week ago. Patient Tobacco Use Status: Former Tobacco user Allergies clindamycin Allergy (Mild, Verified 09/08/24 13:32) Hives Do you need a note to return to daycare/school/sports/work: No HPI HPI Comments History of Present Illness Details This is a 29-year-old male with a past medical history of gastroesophageal reflux disease presenting for evaluation of left heel pain. Art drew states he injured his left heel and left foot playing flag football on September 02. Patient was seen in the emergency department and noted to have an avulsion fracture of the left talus. Patient was placed in a posterior splint and has been nonweightbearing since that time. Patient has been taking Tylenol and ibuprofen intermittently and oxycodone only at night. Patient states that he tries to elevate his left lower extremity when at rest. 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 [facility] Medical History IBS (irritable bowel syndrome) Surgical History Hx of colonoscopy History of esophagogastroduodenoscopy (EGD) Family History Father Substance use disorder Crohn's colitis Paternal Grandfather Substance use disorder Brother Substance use disorder Social History Housing: House Alcohol intake: current Alcohol intake frequency: 0-2 drinks per day Patient Tobacco Use Status: Former Tobacco user Years Smoked: 3 years e-Cigarette/Vaping Use: Never Used service: Yes Current occupational status: employed Current occupation: [employer] Current occupational exposures/hazards: Yes Cognitive needs: No Hearing needs: No Vision needs: Yes Review of Systems Const All systems reviewed & are unremarkable except as noted in HPI and below Eyes Reports no additional complaints ENT Reports no additional complaints Card Reports no additional complaints Resp Reports no additional complaints GI Reports no additional complaints Reports no additional complaints Musc Details: left foot and ankle pain; denies left calf pain Skin/Breast Reports system reviewed and no additional complaints, except as documented Neuro Reports no additional complaints Psych Reports no additional complaints Endo Reports no additional complaints Suleiman/Lymph Reports no additional complaints Aller/Immun Reports no additional complaints Physical Exam Vital Signs: Last Vital Signs Pulse 68 09/08/24 13:35 BP 110/68 09/08/24 13:35 Pulse Ox 98 09/08/24 13:35 Oxygen Delivery Method Room Air 09/08/24 13:35 BMI result Body Mass Index 26.6 Const General: cooperative, healthy appearing, comfortable, no acute distress, well developed, alert, awake and Physically active Nutritional Appearance: average body habitus Orientation/consciousness: patient oriented x3 Limitations: crutches Neuro General: patient oriented x3 Extrem Left lower extremity: lower leg (no left calf pain, sensation intact distally, posterior splint intact) Details: no localized swelling Psych Appearance: grossly normal Mental Status: mental status grossly normal Insight: Good insight present (Psych) Judgement: Good judgement present (Psych) Results Reviewed Results Reviewed: Imaging reviewed from ED visit on September 02, 2024 Assessment & Plan Assessment & Plan (1) Avulsion fracture of talus: Comment: Patient has been taking Tylenol once daily, ibuprofen once daily and oxycodone once daily. Code(s): S92.153A - Displaced avulsion fracture (chip fracture) of unspecified talus, initial encounter for closed fracture Qualifiers: Encounter type: subsequent encounter Fracture type: closed Fracture alignment: nondisplaced Laterality: left Fracture healing: with routine healing Qualified Code(s): S92.155D - Nondisplaced avulsion fracture (chip fracture) of left talus, subsequent encounter for fracture with routine healing Plan: A schedule for medication management is provided to the patient; he is unaware of the amount of medication he still has at home at this time. Patient will take Tylenol every 8 hours, ibuprofen every 6 hours and oxycodone at bedtime (due to working during the day) or every 6 hours as needed. Patient is encouraged to elevate his left lower extremity when at rest and use crutches for ambulation. Patient has follow-up with [facility] sched uled on September 10. Coding Level of Care Code Est Pt Level 3 (46877) Diagnoses Closed nondisplaced avulsion fracture of left talus with routine healing, subsequent encounter S92.155D Encounter type: subsequent encounter Fracture type: closed Fracture alignment: nondisplaced Laterality: left Fracture healing: with routine healing Time Spent (min) 20
[2024-09-08 13:35] VITALS: BP 110/68; PULSE 68; O2SAT 98; BMI 26.6
== END 2024-09-08 14:20 | disposition home or self-care (01) ==
PROVIDERS: PCP Nurse Practitioner Family; Visit Provider Physician Assistant
DX: S92.155D Nondisplaced avulsion fracture (chip fracture) of left talus, subsequent encounter for fracture with routine healing (principal)

== ENCOUNTER → 2024-09-08 12:56 | Outpatient (BNVA) | payer OTHER, SELFPAY | PROVIDERS: PCP Nurse Practitioner Family; Visit Provider Physician Assistant | DX: S92.155D Nondisplaced avulsion fracture (chip fracture) of left talus, subsequent encounter for fracture with routine healing (principal) | CPT/HCPCS: 99212 ==

== ENCOUNTER 2024-09-10 13:34 | Outpatient (AMB) | payer OTHER, SELFPAY ==
--- NOTE | 2024-09-10 13:50 | MHC.OFFVIS ---
Intake Visit Reasons: FC - Left ankle injury, DOI 09/02/24 Intake Note: Marshall is a 29 year old right hand dominant male who presents today for a follow up of his left ankle injury, DOI 09/02/24. Patient states that he was playing flag football, when he planted his left foot, and felt his knee buckle backwards. He felt pain in his left knee as well as his left ankle. Patient reports he is still having a lot of pain and discomfort. Allergies clindamycin Allergy (Mild, Verified 09/08/24 13:32) Hives HPI HPI FC - Left ankle injury, DOI 09/02/24: Details: 29-year-old right-hand dominant male who presents in the office today for an evaluation of left ankle sprain. The patient presented to the ED on 09/02/24 status post an injury while playing flag football and felt his left knee buckle backward when he planted his left foot. He experienced pain in his left knee as well as his left ankle. X-rays and an ultrasound of the left foot were performed in the ER. He was placed in the posterior splint and supplied with crutches. He was recommended to remain non-weight bearing in the left lower extremity and leg elevation. He was prescribed ibuprofen 600 mg PO Q6H PRN, acetaminophen 1000 mg PO Q8H PRN, and oxycodone 5 mg PO Q6H PRN for pain. He was recommended to alternate between ibuprofen and Tylenol PRN and to take oxycodone PRN for severe pain. While in the office today, the patient confirms an injury to his left ankle. He reports persisting severe pain and discomfort in the left ankle. 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 [facility] Medical History IBS (irritable bowel syndrome) Surgical History Hx of colonoscopy History of esophagogastroduodenoscopy (EGD) Family History Father Substance use disorder Crohn's colitis Paternal Grandfather Substance use disorder Brother Substance use disorder Social History Housing: House Alcohol intake: current Alcohol intake frequency: 0-2 drinks per day Patient Tobacco Use Status: Former Tobacco user Years Smoked: 3 years e-Cigarette/Vaping Use: Never Used service: Yes Current occupational status: employed Current occupation: [employer] Current occupational exposures/hazards: Yes Cognitive needs: No Hearing needs: No Vision needs: Yes Review of Systems Const All systems reviewed & are unremarkable except as noted in HPI and below Physical Exam Const General: cooperative, healthy appearing and no acute distress Resp Effort & Inspection: normal respiratory effort and able to speak in complete sentences Cardio Rate: regular rate Peripheral pulses: Peripheral pulses 2+ throughout GI Palpation (GI): Soft to palpation Skin Lesions: no lesions Rashes: no rashes Extrem Other: Left ankle: Ecchymosis on the medial and lateral aspect of the foot and on the base of the heel. Resolving ecchymosis at the base of the toes. Circumferential edema at the ankle that extends to the top of the foot. Tenderness to palpation along the perineal tendon. Negative Shirley?s test. NVI. Assessment & Plan Assessment & Plan (1) Moderate left ankle sprain: Code(s): S93.402A - Sprain of unspecified ligament of left ankle, initial encounter Category: Medical (2) Injury of left Achilles tendon: Code(s): S86.002A - Unspecified injury of left Achilles tendon, initial encounter Category: Medical Plan Mr. Zhong is a 29-year-old right-hand dominant male who presents in the office today for an evaluation of left ankle sprain. The patient presented to the ED on 09/02/24 status post an injury while playing flag football and felt his left knee buckle backward when he planted his left foot. He experienced pain in his left knee as well as his left ankle. X-rays and an ultrasound of the left foot were performed in the ER. He was placed in the posterior splint and supplied with crutches. He was recommended to remain non-weight bearing in the left lower extremity and leg elevation. He was prescribed ibuprofen 600 mg PO Q6H PRN, acetaminophen 1000 mg PO Q8H PRN, and oxycodone 5 mg PO Q6H PRN for pain. He was recommended to alternate between ibuprofen and Tylenol PRN and to take oxycodone PRN for severe pain. While in the office today, the patient confirms an injury to his left ankle. He reports persisting severe pain and discomfort in the left ankle. 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 I have ordered a STAT MRI to rule out partial achilles tendon tears. He was placed into a boot, off the shelf. He may weigh bear as tolerated. Follow-up will be after the MRI is obtained or sooner if needed. X-rays of the left knee, obtained on 09/02/24, revealed: No acute findings left knee. X-rays of the left ankle, obtained on 09/02/24, revealed: No acute findings left ankle. Ultrasound of the left lower extremity, obtained on 09/02/24, revealed: No evidence of Achilles tendon rupture in the imaged portions of the achilles tendon. Orders: Orders MR ankle LT wo con 09/10/24 S86.009A - Unspecified injury of unspecified Achilles tendon, initial encounter, S93.409A - Sprain of unspecified ligament of unspecified ankle, initial encounter Patient Instructions: Scribed by Candy Calvillo manager medical device, for Akanksha Fraga PA-C on 09/10/24 at 2:32 pm EST. Coding Level of Care Code Est Pt Level 4 (31658) Diagnoses Moderate left ankle sprain S93.402A Injury of left Achilles tendon S86.002A
== END 2024-09-10 17:13 | disposition home or self-care (01) ==
PROVIDERS: PCP Nurse Practitioner Family; Visit Provider Physician Assistant
DX: S93.402A Sprain of unspecified ligament of left ankle, initial encounter (principal); S86.002A Unspecified injury of left Achilles tendon, initial encounter
CPT/HCPCS: 99214

== ENCOUNTER → 2024-09-10 13:34 | Outpatient (BNVA) | payer OTHER, SELFPAY | PROVIDERS: PCP Nurse Practitioner Family; Visit Provider Physician Assistant | DX: S93.402A Sprain of unspecified ligament of left ankle, initial encounter (principal); S86.002A Unspecified injury of left Achilles tendon, initial encounter; M25.562 Pain in left knee; X58.XXXA Exposure to other specified factors, initial encounter; Y93.62 Activity, american flag or touch football; Y92.9 Unspecified place or not applicable; Y99.9 Unspecified external cause status | CPT/HCPCS: 99212 ==

== ENCOUNTER 2024-09-15 08:08 | Outpatient (AMB) | payer OTHER, SELFPAY ==
[2024-09-15 08:15] VITALS: BP 118/74; PULSE 76; O2SAT 98; BMI 26.6
--- NOTE | 2024-09-15 08:15 | A.OFFPC_ITS ---
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 Required: No Accompanied by: Self / Same As Patient Allergies clindamycin Allergy (Mild, Verified 09/15/24 08:57) Hives Medication List - Last Reconciled 09/15/24 by TERRANCE Guerra- acetaminophen (Tylenol Extra Strength) 1,000 mg (2 x 500 mg) PO Q8H PRN ibuprofen 800 mg PO Q8H PRN pantoprazole 40 mg PO DAILY prochlorperazine maleate (Compazine) 5 mg PO QID PRN tizanidine (Zanaflex) 2 mg (1/2 x 4 mg) PO BID PRN 5 days Tobacco use date assessed: 03/12/24 Dental Screening Dental Screen Date: 03/12/24 HPI Annual PE HPI Details History of Present Illness The patient is a 29-year-old male presenting with a foot injury incurred during a football game. The patient reports sustaining a talus fracture after planting his foot on another player's foot, causing the knee to roll backward. This incident resulted in an immediate inability to walk and severe pain. A cast was applied, and a stat MRI was ordered, pending results. He was informed there might be a potential Achilles tendon tear, although initial ultrasound results did not confirm this. An avulsion fragment at the posterior aspect of the talus was observed. The patient notes severe bruising and pain, with discomfort while placing pressure on his big toe. No prior bone issues were reported, but the patient has experienced tendon and nerve issues in the past. The patient reports ongoing gastrointestinal issues characterized by alternating constipation and diarrhea, with occasional rectal bleeding suspected to be due to hemorrhoids. GI appointment upcoming next month. Health Maintenance Social History - Participates in sports activities incl uding football. - Occupation in the , but specif ics are not disclosed. - with two children, both girls. - Spouse experienced complications durin g childbirth. Review of Systems - Gastrointestinal: Reports constipation and diarrhea. - Hematologic/Lymphatic: Reports rectal bleeding. - Neurological: Denies headaches, dizzin ess, or loss of consciousness. - Respiratory/Cardiovascular: Denies landy st pain or shortness of breath. Physical Exam General: Cooperative, healthy appearing, comfortable, no acute distress and well developed Orientation: Patient oriented x3 Limitations: No limitations Head: Normal to inspection Ears: Hearing grossly normal bilaterally Nose: Normal external nose present Face and sinus: Normal facial exam Eyes: Appearance normal, both eyes and all related structures Neck: Normal visual inspection and Yes full ROM Respiratory: Normal respiratory effort and able to speak in complete sentences. Clear to auscultation bilaterally Cardiovascular: Regular rate and rhythm. Normal S1 and S2 GI: Normal to inspection. Soft to palpation and nontender, but patient reports constipation and diarrhea, alternating Skin: No rashes or lesions noted Neuro: Patient oriented x3 Extremities: Cast on left lower extremity due to talus fracture, otherwise normal to inspection (using crutches) Results - Tests and Diagnostics: MRI of the foot pending results; initial ultrasound negative for Achilles tear but showed an avulsion fragment. Plan - Talus avulsion fracture: Continue with current immobilization using a cast until MRI results are available. Plan is for orthopedic follow-up based on imag ing outcomes to evaluate possible surgical intervention. - Suspected Achilles tendon tear: Await MRI results to confirm diagnosis and assess the need for further intervention. - Constipation and diarrhea with suspect ed hemorrhoids: Recommend dietary modifications including increased fiber to optimize bowel function. Advise keeping the gastroenterology appointment for further workup and management. - Status post vasectomy: No new interven tions directly related to the vasectomy as the patient is not seeking additional management at this time. Patient was informed and verbally consented to the use of an ambient scribe for clinic note documentation during this visit. Discussion Notes I discussed with the patient the importance of waiting for MRI results to determine the next steps for his talus fracture and possible Achilles tendon tear. I emphasized continued immobilization and caution to prevent further injury. We reviewed potential causes and management strategies for his bowel i rregularities and suspected hemorrhoids, including dietary adjustments and the necessity of continuing with scheduled GI evaluations. I validated his concerns regarding post-vasectomy care and clarified there is no immediate action required. Patient Instructions - Remain in the cast and limit weight-be aring activities until further notice. - Await MRI results and follow up with o rthopedics as instructed. - Implement dietary changes to address c onstipation and diarrhea. - Report any significant changes in symp toms or new concerns. -encouraged pt to get labs drawn [facility] Medical History (Updated 09/15/24 @ 09:05 [facility] IBS (irritable bowel syndrome) Surgical History (Updated 09/15/24 @ 09:04 [facility] H/O vasectomy Hx of colonoscopy History of esophagogastroduodenoscopy (EGD) Family History Father Substance use disorder Crohn's colitis Paternal Grandfather Substance use disorder Brother Substance use disorder Social History Housing: House Alcohol intake: current Alcohol intake frequency: 0-2 drinks per day Patient Tobacco Use Status: Former Tobacco user Years Smoked: 3 years e-Cigarette/Vaping Use: Never Used service: Yes Current occupational status: employed Current occupation: [employer] Current occupational exposures/hazards: Yes Cognitive needs: No Hearing needs: No Vision needs: Yes Questionnaire PHQ-9 Over the last 2 weeks, how often have you been bothered by any of the following problems? 1. Little interest or pleasure in doing things: not at all 2. Feeling down, depressed, or hopeless: not at all 3. Trouble falling or staying asleep, or sleeping too much: not at all 4. Feeling tired or having little energy: several days 5. Poor appetite or overeating: not at all 6. Feeling bad about yourself - or that you are a failure or have let yourself or your family down: not at all 7. Trouble concentrating on things, such as reading the newspaper or watching television: not at all 8. Moving or speaking so slowly that other people could have noticed. Or the opposite - being so fidgety or restless that you have been moving around a lot more than usual: not at all 9. Thoughts that you would be better off or of hurting yourself in some way: not at all Total score: 1 Depression Screening Interpretation: Negative Depression Screening Done: Yes 10112 - PHQ-9 Billing: Yes Source: Developed by Drs. Marty Mendes, Zoë Blake, Lee Latif and colleagues, with an educational morgan from [email or web address]. Thrive Questionnaire Date Thrive assessed: 09/15/24 I am a: Patient What is your living situation today?: I have a steady place to live Within the past 12 months, did the food you bought not last and you didn't have the money to get more?: Never true Within the past 12 months, did you worry whether your food would run out before you got money to buy more?: Never true Do you have trouble paying for medicines?: No Do you have trouble getting transportation to medical appointments?: No Do you have trouble paying your heating and electricity bill?: No Do you have trouble taking care of your child, family member or friend?: No Do you have trouble with day-to-day activities such as bathing, preparing meals, shopping, managing finances, etc.?: No Are you currently unemployed and looking for a job?: No Are you interested in more education?: No Please select the resources that you would like help with: None Currently or been in a relationship where the following occur: No concerns reported THRIVE Score: 0 AUDIT C Alcohol Use Questionnaire (AUDIT-C) 1. How often do you have a drink containing alcohol?: 2-4 times a month 2. How many drinks containing alcohol do you have on a typical day when you are drinking?: 3 or 4 3. How often do you have six or more drinks on one occasion?: Less than monthly Total Score: 4 Score Reviewed/Action Taken: Yes BAKARI-7 AMB Questionnaire BAKARI-7 Date BAKARI - 7 assessed: 09/15/24 Feeling nervous, anxious, or on edge: 0 = Not at all Not being able to stop or control worryin = Several days Worrying too much about different things: 1 = Several days Trouble relaxin = Several days Being so restless that it is hard to sit still: 1 = Several days Becoming easily annoyed or irritable: 1 = Several days Feeling afraid as if something awful might happen: 0 = Not at all Total BAKARI-7 score (0-4 normal; 5-9 mild; 10-14 moderate; 15-21 severe): 5 Source: Developed by Drs. Marty Mendes, Zoë Blake, Lee Latif and colleagues, with an educational morgan from [email or web address]. BAKARI-7 Assessment Billing BAKARI-7 Assessment Tool: BAKARI-7 Assessment 73184 Physical exam (Primary Care) Vital Signs: Last Vital Signs Pulse 76 09/15/24 08:15 BP 118/74 09/15/24 08:15 Pulse Ox 98 09/15/24 08:15 BMI result Body Mass Index 26.6 Tobacco/Smoking Status: Tobacco use Status Tobacco use date assessed 03/12/24 09/15/24 08:18 Patient Tobacco Use Status Former Tobacco user 09/15/24 08:18 e-Cigarette/Vaping Use Never Used 09/15/24 08:18 PHQ-9: PHQ-9 Score PHQ-9: Total score 1 09/15/24 08:18 Depression Screening Interpretation: Negative Thrive Assessment: Date of Thrive Assessment Date Thrive assessed 09/15/24 09/15/24 08:18 Currently or been in a relationship where the following occur: No concerns reported Coding Level of Care Code Est Pt Prev Care 18-39y(71107) Diagnoses Physical exam Z00.00 Closed nondisplaced avulsion fracture of left talus with routine healing, subsequent encounter S92.155D Encounter type: subsequent encounter Fracture type: closed Fracture alignment: nondisplaced Laterality: left Fracture healing: with routine healing Additional Codes PHQ-9 - 42106 - PHQ-9 Billing: Yes ([id number]) BAKARI-7 Assessment Billing - BAKARI-7 Assessment Tool: BAKARI-7 Assessment 96075 ([id number]) Assessment & Plan Assessment & Plan (1) Physical exam: Code(s): Z00.00 - Encounter for general adult medical examination without abnormal findings Category: Medical (2) Avulsion fracture of talus: Code(s): S92.153A - Displaced avulsion fracture (chip fracture) of unspecified talus, initial encounter for closed fracture Category: Medical Qualifiers: Encounter type: subsequent encounter Fracture type: closed Fracture alignment: nondisplaced Laterality: left Fracture healing: with routine healing Qualified Code(s): S92.155D - Nondisplaced avulsion fracture (chip fracture) of left talus, subsequent encounter for fracture with routine healing Plan .
== END 2024-09-15 09:17 | disposition home or self-care (01) ==
PROVIDERS: PCP Nurse Practitioner Family; Visit Provider Nurse Practitioner Family
DX: Z00.00 Encounter for general adult medical examination without abnormal findings (principal); S92.155D Nondisplaced avulsion fracture (chip fracture) of left talus, subsequent encounter for fracture with routine healing

== ENCOUNTER → 2024-09-15 08:08 | Outpatient (BNVA) | payer OTHER, SELFPAY | PROVIDERS: PCP Nurse Practitioner Family; Visit Provider Nurse Practitioner Family | DX: Z00.00 Encounter for general adult medical examination without abnormal findings (principal); S92.155D Nondisplaced avulsion fracture (chip fracture) of left talus, subsequent encounter for fracture with routine healing | CPT/HCPCS: 96127 ==

== ENCOUNTER → 2024-09-15 19:01 | Outpatient (BNV) | payer OTHER, SELFPAY | PROVIDERS: PCP Nurse Practitioner Family; Visit Provider Radiology Diagnostic Radiology | DX: S93.402A Sprain of unspecified ligament of left ankle, initial encounter (principal) | CPT/HCPCS: 73721 ==

== ENCOUNTER 2024-09-15 19:04 | Outpatient (REF) | payer OTHER, SELFPAY ==
--- NOTE | ~2024-09-15 | MR_ITS ---
EXAMINATION: MR ANKLE WITHOUT CONTRAST, LEFT CLINICAL INFORMATION: Achilles pain, rule out tear. COMPARISON: No prior MRI. Correlation made with plain films dated 09/02/2024. TECHNIQUE: MRI of the left ankle was performed using routine sequences on a high-field scanner. Exam performed on a 1.5 Chay[employer] Siemens high-field magnet. 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 FINDINGS: TENDONS: Flexor tendons: Intact and normal in signal. Mild tenosynovitis of the flexor digitorum tendon at the midfoot level. Extensor tendons: Intact and normal in signal. Peroneus tendons: There is a split tear of the peroneus brevis tendon after it passes the lateral malleolus. (Series 4, image 26). There is mild tenosynovitis of the peroneus longus tendon. Achilles: Intact and normal in signal. There is no tear. There is a small amount of fluid in the retrocalcaneal bursa consistent with bursitis. Plantar fascia: Intact and normal in signal. LIGAMENTS: Syndesmosis: Intact, normal in signal. Lateral ligaments: Anterior talofibular ligament has slightly increased signal but is intact. This likely indicates a strain injury. The posterior talofibular ligament, and calcaneofibular ligament are intact and normal in signal. LisFranc: Intact. Normal in signal. Cervical: Intact and normal in signal. Deltoid: Deltoid superficial and deep bands are intact and normal in signal. Spring: Spring ligament is intact and normal in signal. Normal plantar arch. JOINTS: Tibiotalar: Intact. Small amount of increased joint fluid. Subtalar: Intact. Small amount of increased joint fluid. Calcaneonavicular: Normal. Other: No other findings. No evidence of a coalition Cartilage: Intact without focal defect. Alignment: Normal Marrow: Small avulsion fragment of the posterior process of the talus. There are mild bone contusions of the posterior malleolus, posterior medial talus and talar dome, and posterolateral calcaneus abutting the posterior subtalar facet. No associated fractures in these regions. Remainder of the bone marrow structures are normal without additional contusion, edema, or fracture. Muscle/soft tissues: Normal Other: Normal MR/MR ankle LT wo con IMPRESSION: 1. Small avulsion fracture posterior process of talus, as reported on plain film. 2. Bone contusions of the posterior malleolus, posterior medial talus/talar dome, and posterior lateral calcaneus abutting the posterior subtalar facet. No associated fractures in these regions. 3. Intact Achilles tendon with mild retrocalcaneal bursitis. 4. Split tear peroneus brevis tendon. Mild tenosynovitis peroneus longus tendon and flexor digitorum longus tendons. 5. Mild sprain injury anterior talofibular ligament. Ligament is intact. Remainder of ligamentous structures remain intact and normal in signal. 6. Small joint effusions of the tibiotalar joint and subtalar joints. Electronically signed by: Titi Roper MD 09/16/2024 08:57 AM [facility]
== END 2024-09-15 19:05 | disposition home or self-care (01) ==
LOC: HO.MRI 19:04
PROVIDERS: PCP Nurse Practitioner Family; Visit Provider Physician Assistant
DX: S86.002A Unspecified injury of left Achilles tendon, initial encounter (principal); S93.402A Sprain of unspecified ligament of left ankle, initial encounter
CPT/HCPCS: 73721

== ENCOUNTER 2024-10-14 15:20 | Outpatient (AMB) | payer OTHER, SELFPAY ==
--- NOTE | 2024-10-14 15:21 | A.OFFVIS_ITS ---
Intake Visit Reasons: chronic diarrhea Intake Note: Marshall presents as a video call today. CC: States that he is dealing with diarrhea, pains in the rectum but not in the stomach. Allergies clindamycin Allergy (Mild, Verified 09/15/24 08:57) Alycia HPI Comments Details: 29 y.o M with PMH of IBS who is here as a follow up. [facility] [place]. Reports having chronic diarrhea for almost all of his life. Dx with IBS. EGD/colo 11/2023 neg for small bowel malabsorption or colitis. Used to manage this with imodium but would frequently get severe constipation after taking just 2-3 doses so stopped. No fiber supplementaion. Main CC is rectal discomfort which has random onset ongoing x 1 year. Possibly more so with lifting motions. Pain is characterized stabbing pain as and lasts from a few seconds to a few minutes. No relation with defecation. No foreign body insertion. Doesnt lift heavy weights. Doesnt keep anything in pants' backpocket. [facility] Medical History IBS (irritable bowel syndrome) Surgical History H/O vasectomy Hx of colonoscopy History of esophagogastroduodenoscopy (EGD) Family History Father Substance use disorder Crohn's colitis Paternal Grandfather Substance use disorder Brother Substance use disorder Social History Housing: House Alcohol intake: current Alcohol intake frequency: 0-2 drinks per day Patient Tobacco Use Status: Former Tobacco user Years Smoked: 3 years e-Cigarette/Vaping Use: Never Used service: Yes Current occupational status: employed Current occupation: [employer] Current occupational exposures/hazards: Yes Cognitive needs: No Hearing needs: No Vision needs: Yes Review of Systems Const All systems reviewed & are unremarkable except as noted in HPI and below Physical Exam Vital Signs: Video visit: No acute distress No icterus noted No facial asymmetry Speaking in full sentences Telehealth Telehealth Telehealth Platform: [facility] Location of provider rendering services: practice address Location of patient: address on file Patient Identification confirmed using: Name, : Yes Telehealth method: video Patient verbally consented to treatment: Yes Patient verbally consented to billing insurance company: Yes Patient informed of any privacy concerns related to visit: Yes Minutes spent on Phone/Video with Pt.: 13 Assessment & Plan Assessment & Plan (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 Rectal pain REveiwed with the pt that within the limits of assessment through video visit, this appears to be secondary to proctalgia fugax. Ddx include nerve impingement. Low suspicion for perirectal absence given character and timing of pain and lack of systemic sx. Pt does not report trauma. [place] last year without any procitis. Reassured that not progressive, in fact msot of the times resolves within a year. Mainstay is Plan: - Reassurance - Can take dicyclomine for this as well - PT referral for biofeedback 2. IBS D Sx burden manageable. Would like to try imodium again - reviewed that tabs may preferable for easier dose titration (can be halved etc). Plan: - Imodium 1-2mg PO 1-2 times a day - Fiber supplementation Follow up 6 months Orders: Orders PT Evaluation and Treatment 10/14/24 K59.4 - Anal spasm Medications: New loperamide (Imodium A-D) 2 mg PO BID PRN 90 tabs 0RF loose stool Refilled pantoprazole 40 mg PO DAILY 60 tabs 5RF Coding Level of Care Code Tele Est Pt Level 4 (30312) Diagnoses Proctalgia fugax K59.4 Irritable bowel syndrome with diarrhea K58.0
--- OUTSIDE RECORDS SUMMARY | 2024-10-14 15:23 | XMS_ITS | Continuity of Care Document ---
Author Name [facility] Organization [facility] Care Team Providers Care Granular Operator Name Role Phone [facility] Unavailable Unavailable Problems Combined list of problems from Department of Defense and Veterans Affairs facilities. It does not include entries that were removed or entered in error. Problem Status Onset Date Problem Type Date of Resolution Comments Source Myopia, bilateral Active 11/10/2019 Condition D oD Encounter for examination of eyes and vision without abnormal findings Active 11/10/2019 Condition DoD contact dermatitis due to detergents Inactive 04/07/2019 Condition DoD Encounter for examination for driving license Active 06/24/2018 Condition DoD Nicotine dependence, unspecified, uncomplicated Active 01/23/2018 Condition DoD Medications Combined list of outpatient medications from Department of Defense and Veterans Affairs facilities.Medications provided include 1) outpatient medications from the last 15 months, and 2) patient-reported medications. Medication Details Route Status Patient Instructions Prescription Expires Prescription Number Last Dispense Date Ordering Provider Order Date Order Qty Source IBUPROFEN (ibuprofen) , 800 MG, TABLET, ORAL, AUROBINDO PHARM, 500 ea. BOTTLE Active [id number] 2023 30 Pharmac y Data Transac tion Service Facilit y PANTOPRAZOL E SODIUM (PANTOPRAZO LE SODIUM), 40 MG, TABLET DR, ORAL, MYLAN, 90 ea. BOTTLE Active [id number] 4 2023 60 Pharmac y Data Transac tion Service Facilit y PANTOPRAZOL E SODIUM (PANTOPRAZO LE SODIUM), 40 MG, TABLET DR ORAL, MYLAN, 90 ea. BOTTLE Active [id number] 4 2023 90 Pharmac y Data Transac tion Service Facilit y TIZANIDINE HCL (TIZANIDINE HCL), 4MG, TABLET, ORAL, 'S LAB, 150 ea. BOTTLE Active [id number] 2023 5 Pharmac y Data Transac tion Service Facilit y XIFAXAN (RIFAXIMIN) , 550 MG, TABLET, ORAL, SALIX PHARMACEU, 60 ea. BOTTLE Active [id number] 4 2023 42 Pharmac y Data Transac tion Service Facilit y Allergies, Adverse Reactions, Alerts Combined list of allergies from Department of Defense and Veterans Affairs facilities. It does not include entries that were removed or entered in error. Substance Category Reaction Severity Reaction type Status Date Reported Comments Source CLINDAMYCIN Drug allergy (disorder) Unknown active 6 [facility] clindamycin Propensity to adverse reactions to substance Unknown Active Ambulatory Pharmacy Immunizations Combined list of available immunizations from the Department of Defense and Veterans Affairs facilities. Immunization Series Date Given Administered By Site Reaction Lot Number CVX Code Drug [employer] Status Comments Source SARS-COV-2 (COVID-19) vaccine, mRNA, spike protein, LNP, preservative free, 100 mcg or 50 mcg dose 2 2020 [id number] [employer] (MOD) complet ed SARS-COV- 2 (COVID-19 ) vaccine, mRNA, spike protein, LNP, preservat phoebe free, 100 mcg or 50 mcg dose DoD SARS-COV-2 (COVID-19) vaccine, mRNA, spike protein, LNP, preservative free, 100 mcg or 50 mcg dose 1 2020 [id number] 207 [employer] (MOD) complet ed SARS-COV- 2 (COVID-19 ) vaccine, mRNA, spike protein, LNP, preservat phoebe free, 100 mcg or 50 mcg dose DoD influenza, injectable, quadrivalent 2018 [id number] 158 Seqirus complet ed influenza , injectabl e, quadrival ent 08/10/19 Given Ambulat ory Pharmac y influenza, injectable, quadrivalent, contains preservative 0 2018 [id number] 158 Seqirus (SEQ) complet ed influenza , injectabl e, quadrival ent, contains preservat phoebe DoD anthrax vaccine 2018 UNK 24 Emergent Biosolutions complet ed anthrax vaccine 05/29/19 Given Ambulat ory Pharmac y anthrax vaccine 4 2018 UNK 24 Emergent Bio[employer] [place] (MIP) complet ed anthrax vaccine DoD yellow fever vaccine 2018 UNK 37 sanofi pasteur complet ed yellow fever vaccine 03/10/19 Given Ambulat ory Pharmac y yellow fever vaccine 0 2018 UNK 37 Sanofi Pasteur (PMC) complet ed yellow fever vaccine DoD Zimbabwean Encephalitis IM 2018 UNK 134 Valneva complet ed [place]an Encephali tis IM 12/24/18 Given Ambulat ory Pharmac y vaccinia (smallpox) vaccine 2018 UNK 75 Sanofi Pasteur Incorporated complet ed vaccinia (smallpox ) vaccine 12/24/18 Given Ambulat ory Pharmac y typhoid vaccine, parenteral 2018 UNK 41 [email or web address] [place] complet ed typhoid vaccine, parentera l 12/24/18 Given Ambulat ory Pharmac y anthrax vaccine 2018 UNK 24 Emergent Biosolutions complet ed anthrax vaccine 12/24/18 Given Ambulat ory Pharmac y anthrax vaccine 3 2018 UNK 24 [employer] [place] (MIP) complet ed anthrax vaccine DoD typhoid vaccine, parenteral, other than acetone-kille d, dried 2 2018 UNK 41 Sensible [employer] [place] (BP) complet ed typhoid vaccine, parentera l, other than acetone-k illed, dried DoD vaccinia (smallpox) vaccine 0 2018 UNK 75 (JAMAL) complet ed vaccinia (smallpox ) vaccine DoD [place]an Encephalitis vaccine for intramuscular administratio n 2 2018 UNK 134 Massive Solutions [employer]ical (INT) complet ed [place] Encephali tis vaccine for intramusc ular administr ation DoD [place]an Encephalitis IM 2018 [id number] 134 Valneva complet ed [place]an Encephali tis IM 11/11/18 Given Ambulat ory Pharmac y anthrax vaccine 2018 [id number] 24 [employer] complet ed anthrax vaccine 11/11/18 Given Ambulat ory Pharmac y anthrax vaccine 2 2018 [id number] 24 [employer] [place] (MIP) complet ed anthrax vaccine DoD [place]an Encephalitis vaccine for intramuscular administratio n 1 2018 [id number] 134 [employer] (INT) complet ed [place] Encephali tis vaccine for intramusc ular administr ation DoD influenza, injectable, quadrivalent- pf 2017 [id number] 150 [employer] ne complet ed influenza , injectabl e, quadrival ent-pf 09/22/18 Given Ambulat ory Pharmac y anthrax vaccine 2017 [id number] 24 Emergent Biosolutions complet ed anthrax vaccine 09/22/18 Given Ambulat ory Pharmac y anthrax vaccine 1 2017 [id number] 24 Emergent BioDefense [facility] ([facility]) complet ed anthrax vaccine DoD Influenza, injectable, quadrivalent, preservative free 0 2017 [id number] 150 SmithKline (SKB) complet ed Influenza , injectabl e, quadrival ent, preservat phoebe free DoD hepatitis B adult vaccine 2016 UNK 43 GlaxoSmithKli ne complet ed hepatitis B adult vaccine 07/31/17 Given Ambulat ory Pharmac y influenza, injectable, quadrivalent- pf 2016 [id number] 150 GlaxoSmithKli ne complet ed influenza , injectabl e, quadrival ent-pf 07/31/17 Given Ambulat ory Pharmac y hepatitis B vaccine, adult dosage 3 2016 UNK 43 SmithKline (SKB) complet ed hepatitis B vaccine, adult dosage DoD Influenza, injectable, quadrivalent, preservative free 0 2016 [id number] 150 SmithKline (SKB) complet ed Influenza , injectabl e, quadrival ent, preservat phoebe free DoD hepatitis B adult vaccine 2016 [id number] 43 GlaxoSmithKli ne complet ed hepatitis B adult vaccine 02/05/17 Given Ambulat ory Pharmac y hepatitis B vaccine, adult dosage 2 2016 [id number] 43 SmithKline (SKB) complet ed hepatitis B vaccine, adult dosage DoD influenza, seasonal, injectable-pf 2016 [id number] 140 GlaxoSmithKli ne complet ed influenza , seasonal, injectabl e-pf 12/10/16 Given Ambulat ory Pharmac y typhoid vaccine, parenteral 2016 [id number] 41 sanofi pasteur complet ed typhoid vaccine, parentera l 12/10/16 Given Ambulat ory Pharmac y varicella virus vaccine 0 2016 21 () Not Given varicella virus vaccine DoD typhoid vaccine, parenteral, other than acetone-kille d, dried 1 2016 L1570 41 Sanofi Pasteur ([facility]) complet ed typhoid vaccine, parentera l, other than acetone-k illed, dried DoD Influenza, seasonal, injectable, preservative free 0 2016 [id number] 140 [employer] (SKB) complet ed Influenza , seasonal, injectabl e, preservat phoebe free DoD poliovirus vaccine, inactivated 2015 zzLef t Arm [id number] 10 sanofi pasteur complet ed polioviru s vaccine, inactivat ed 03/09/16 Given Ambulat ory Pharmac y hepatitis B pediatric/ado lescent 2015 zzLef t Arm [id number] 08 GlaxoSmithKli ne complet ed hepatitis B pediatric /adolesce nt 03/09/16 Given Ambulat ory Pharmac y hepatitis B vaccine, pediatric or pediatric/ado lescent dosage 1 2015 CINDI MIX [id number] 08 [facility] (SKB) complet ed hepatitis B vaccine, pediatric or pediatric /adolesce nt dosage DoD poliovirus vaccine, inactivated 1 2015 CINDI MIX [id number] 10 Sanofi Pasteur ([facility]) complet ed polioviru s vaccine, inactivat ed DoD hepatitis A vaccine, adult dosage 0 2015 52 () Not Given hepatitis A vaccine, adult dosage DoD measles and rubella virus vaccine 0 2015 04 () Not Given measles and rubella virus vaccine DoD varicella virus vaccine 0 2015 21 () Not Given varicella virus vaccine DoD tuberculin purified protein derivative 2015 zzLef t Arm [id number] 96 sanofi pasteur complet ed tuberculi n purified protein derivativ e 02/03/16 Given Ambulat ory Pharmac y meningococcal oligosacchari de (MCV4O) 2015 zzLef t Arm [id number] 136 sanofi pasteur complet ed meningoco ccal oligosacc haride (MCV4O) 02/03/16 Given Ambulat ory Pharmac y adenovirus vaccine, live 2015 zzLef t Arm [id number] 143 Teva Pharmaceutica ls complet ed adenoviru s vaccine, live 02/03/16 Given Ambulat ory Pharmac y tetanus, diphtheria, acellular pertu is 2015 zzLef t Arm [id number] 115 GlaxoSmithKli ne complet ed tetanus, diphtheri a, acellular pertussis 02/03/16 Given Ambulat ory Pharmac y tuberculin skin test; purified protein derivative solution, intradermal 1 2015 Unknown, Provider [id number] Sanofi Pasteur ([facility]) complet ed tuberculi n skin test; purified protein derivativ e solution, intraderm al DoD tetanus toxoid, reduced diphtheria toxoid, and acellular pertu is vaccine, adsorbed 1 2015 Unknown, Provider [id number] [address] [place], [place] [address] (SKB) complet ed tetanus toxoid, reduced diphtheri a toxoid, and acellular pertussis vaccine, adsorbed DoD meningococcal oligosacchari de (groups A, C, Y and W-135) diphtheria toxoid conjugate vaccine (MCV4O) 1 2015 Unknown, Provider [id number] 136 Sanofi Pasteur (PMC) complet ed meningoco ccal oligosacc haride (groups A, C, Y and W-135) diphtheri a toxoid conjugate vaccine (MCV4O) DoD Adenovirus, type 4 and type 7, live, oral 1 2015 Unknown, Provider [id number] 143 [facility] (BRR) complet ed Adenoviru s, type 4 and type 7, live, oral DoD Results Combined list of recent chemistry, hematology and other laboratory results from Department of Defense and Veterans Affairs, ranging from 15 months to all on record, depending upon the facility. Order Name Results Value Reference Range Date Interpretation Specimen Comments Source Infectio us Disease HIV-1/O/2 Non-Reac tive 1 ( 4 1:55 PM) 08/19 N Interpretiv e Data: INTERPRETAT ION: This method is a screening procedure for the detection of HIV p24 Antigen and Antibodies to HIV-1, including Group O, and/or HIV-2. NON-REACTIV E: HIV-1 antigen and HIV-1 / HIV-2 antibodies were not detected. No laboratory evidence of HIV infection. A negative test result does not exclude the possibility of exposure to or infection with HIV. HIV antibodies and/or p24 antigen may be undetectabl e in some stages of the infection and in some clinical conditions. If acute HIV infection is suspected, consider submitting another specimen to a reference laboratory for HIV-1 RNA. SCREEN REACTIVE - CONFIRMATIO N TO FOLLOW: Possible presence of HIV-1antibo dies, HIV-2 antibodies and/or HIV-1 p24 antigen. Specimen will reflex to the confirmatio n testing that fulfills the Center for Disease Control and Prevention' s HIV diagnostic algorithm. Refer to [facility] Lab Guide for additional information : [email or web address]/ [email or web address]/EPIL ab/[email or web address]/doe [email or web address] x Testing performed by [facility] Repository Sample Received ( 4 1:55 PM) 08/19 N [facility] Vital Signs Combined list of inpatient and outpatient Vital Signs from Department of Defense and Veterans Affairs, ranging from 12 months to all on record, depending upon the facility. Vital Sign Value Date Comments Source No data available for this section Ambulatory Pharmacy Encounters Combined list of: 1) Encounters from Department of Veterans Affairs facilities going back up to thelast 18 months. 2) Encounters from the Department of Defense facilities going back up to 280 months. Location Location Details Encounter Type Encounter Number Reason For Visit Attending Provider ADM Date DC Date Status Disposition Source [facility] OUTPATIENT [id number] MARYSOL SALDAÑA 01/30 Released w/o Limitations [facility] Alek baires([facility] D Hearing Conserv [facility]ion) [facility] OUTPATIENT [id number] SUSANA CEJA 02/01 Released w/o Limitations [facility] Alek baires(MCR D Optomet ry Clinic) [facility]o sol[facility] Rec[facility] Medical Process) OUTPATIENT [id number] INITIAL INPROCE KAMALJIT MENDOZA 02/02 Released w/o Limitations [facility] Alek baires([facility] D Recruit Medical Process ) [facility] OUTPATIENT [id number] 2ND VISIT FOR INPROCE KAMALJIT MENDOZA 03/09 Released w/o Limitations [facility] Alek baires([facility] D Recruit Medical Process ) [facility] Weapons BAS[facility] OUTPATIENT [id number] Notes Entered by: KAIDEN KOHLER 16 Mar 2016 0652 ------- ------- ------- ------- -- Miguel- numb left arm FLORENCE CHISHOLM 03/16 Released with Work/Duty Limitations [facility] Alek abires([facility] D Weapons BAS) [facility]ick [facility] OUTPATIENT [id number] Notes Entered by: JOSE MARTIN MONZON 24 Mar 2016 0755 ------- ------- ------- ------- -- D - Numbnes s of (L) hand x 10 days DIVYA CASILLAS 03/24 Released w/o Limitations [facility] Alek baires([facility] D Duty Sick Call) [facility] neha([facility] First BN BAS) OUTPATIENT [id number] Notes Entered by: RAE CAMPOS 26 Mar 2016 0701 ------- ------- ------- ------- -- Miguel/1048- F/U LEFT HAND RAE ALEJO 03/26 Released w/o Limitations [facility] Alek baires([facility] D First BN BAS) [facility] neha([facility] First BN BAS) OUTPATIENT [id number] Notes Entered by: RAE CAMPOS 28 Mar 2016 0650 ------- ------- ------- ------- -- D- F/U BREANNA LAO IS RAE TOBAR 03/28 Released w/o Limitations [facility] Alek baires([facility] D First BN BAS) [facility] neha[facility] We[facility]) OUTPATIENT [id number] Notes Entered by: HARSHA ALVA 03 Apr 2016 0619 ------- ------- ------- ------- -- Miguel9 Arm Numbnes s FLORENCE CHISHOLM 04/03 Released w/o Limitations [facility] Alek baires([facility] D Weapons BAS) [facility] Program) OUTPATIENT [id number] Notes Entered by: ENRIQUETA LOBATO 05 Feb 2017 1428 ------- ------- ------- ------- -- ENRIQUETA MIRAMONTES 02/05 Released w/o Limitations [facility] HC Program ) [facility] Readiness Cln) OUTPATIENT [id number] Notes Entered by: CRISTAL NOLAND 28 May 2017 0828 ------- ------- ------- ------- -- LCPL Course Sydneyi TERRENCE Cuevas 05/28 Released w/o Limitations [facility] Readine ss Cln) [facility](TP Optometry ) OUTPATIENT [id number] cpl-max es ARIS Soto I 11/19 Released w/o Limitations [facility](T P Optomet ry) [facility]) OUTPATIENT [id number] ALIS PT1 BASE (MACG-3 8) WILIAM LEY 01/21 Released w/o Limitations [facility]) [facility] HC Program) OUTPATIENT [id number] Notes Entered by: YOVANI TRAN V 21 Jan 2018 0843 ------- ------- ------- ------- -- TRINITY Brothers V 01/21 Released w/o Limitations [facility] HC [facility] ) [facility]) OUTPATIENT [id number] PT2 ALYSON HERNANDEZ 01/23 Released w/o Limitations [facility]) [facility]) OUTPATIENT [id number] CALLY PT1 BASE (MACG-3 8) CHRIS ESPINOSA 05/30 Released w/o Limitations [facility]) [facility]) OUTPATIENT [id number] PART 2 MICHAEL MALLORY 06/23 Released w/o Limitations [facility] OUTPATIENT [id number] Theater Provider 04/06 Released w/o Limitations Theater Facilit y [facility] HC Program) OUTPATIENT [id number] Notes Entered by: YOVANI TRAN V 29 Oct 2019 0827 ------- ------- ------- ------- -- term TRINITY PLASCENCIA V 10/29 Released w/o Limitations [facility](M CASM HC Program ) [facility] Optometry Cln) OUTPATIENT [id number] Notes Entered by: RA DUDLEY BARBOSA 10 Nov 2019 1223 ------- ------- ------- ------- -- SYDNI SANDOAVL 11/10 Released w/o Limitations [facility] Optomet ry Cln) [facility] Med Readiness Cln) OUTPATIENT [id number] SEP PHYS/MA CS-11/02 [id number] TERESA CERVANTES 11/18 Released w/o Limitations [facility] Fam Med [facility] Tm 2) TELE CONSULT [id number] Notes Entered by: TERESA CERVANTES 05 Jan 2020 1352 ------- ------- ------- ------- -- ePHA- [id number] TERESA CERVANTES 01/04 [facility](M CASM Fam Med [facility] Tm 2) [facility] Sarah( Med Readiness Center) OUTPATIENT [id number] [facility] /B one bruise left knee/Smith ll DB MIX 04/06 Released with Work/Duty Limitations [facility] Sarah( Med Readine ss Center) [facility] Sarah([facility] OUTPATIENT [id number] Notes Entered by: ARTHUR COLIN 25 Apr 2022 1611 ------- ------- ------- ------- -- Limdu screen AMY ROSS 04/25 Released w/o Limitations [facility] Sarah( GR Case Managem ent) [id number] AMDS Outpatient [id number] JORGE A DCKeri 08/21 Discharge Disposition: Home or Self Care [id number] AMDS 0035C-NB [facility] [id number] ITZELMEDIN AMARTINEZ 09/09 Discharge Disposition: Home or Self Care 0035C-N [facility] [place] Procedures Combined list of: 1) Procedures from Department of Veterans Affairs facilities going back up to thelast 18 months, not all VA non-surgical procedures are included; 2) All procedures from the Department of Defense facilities. Procedure Procedure Type Code Date Perfomer Comments Sourc e No data available for this section [facility] CASE MANAGEMENT, EACH 15 MINUTES 2021 DoD WAIVER SERVICES; NOT OTHERWISE SPECIFIED (NOS) 2021 [facility] IMMUNIZATION ADMINISTRATION (INCLUDES PERCUTANEOUS, INTRADERMAL, SUBCUTANEOUS, OR INTRAMUSCULAR INJECTIONS); EACH ADDITIONAL VACCINE (SINGLE OR COMBINATION VACCINE/TOXOID) 2015 DoD SKIN TEST; TUBERCULOSIS, INTRADERMAL 2015 [facility] PHYS/OTH QUALIFIED HEALTH STATE APPELLATE CLERK QUALIFIED,EDUCATION ,TRAIN,LICENSURE/RE GULATION (WHEN APPLICABLE) EDUC SER RENDERED TO PATS IN A GRP SETTING (EG,,OBESIT Y,OR DIABETIC INSTRUCT) 2015 [facility] SCREENING TEST OF VISUAL ACUITY, QUANTITATIVE, BILATERAL 2015 [facility] DETERMINATION OF REFRACTIVE STATE 2019 DoD AUDIOMETRIC TESTING OF GROUPS 2019 DoD ELECTROCARDIOGRAM, ROUTINE ECG WITH AT LEAST 12 LEADS; INTERPRETATION AND REPORT ONLY 2017 DoD VIS FUNCT SCREEN,AUTOMAT/SEMI -AUTOMAT BILAT QUANT DETERM VISUAL ACUITY,OCULAR ALIGN,COLOR VISION,PSEUDOISOCHR OMAT PLATES,& FIELD VIS (MAY INC ALL/SOME SCRN DETERM FOR CONTRAST SENSITIV,VIS UND GLARE) 2017 DoD ELECTROCARDIOGRAM, ROUTINE ECG WITH AT LEAST 12 LEADS; INTERPRETATION AND REPORT ONLY 2017 DoD AUDIOMETRIC TESTING OF GROUPS 2017 [facility] VIS FUNCT SCREEN,AUTOMAT/SEMI -AUTOMAT BILAT QUANT DETERM VISUAL ACUITY,OCULAR ALIGN,COLOR VISION,PSEUDOISOCHR OMAT PLATES,& FIELD VIS (MAY INC ALL/SOME SCRN DETERM FOR CONTRAST SENSITIV,VIS UND GLARE) 2017 [facility] AUDIOMETRIC TESTING OF GROUPS 2016 [facility] Determination Of Refractive State Determination Of Refractive State 55822 2019 [facility] Spectacles Services Fitting Monofocal Except For Aphakia Spectacles Services Fitting Monofocal Except For Aphakia 74941 2019 [facility] Ophthalmological New Patient Start Comprehensive Care Ophthalmological New Patient Start Comprehensive Care 98587 2019 [facility] Audiometry Group Testing Audiometry Group Testing 77158 2019 TRINITY PLASCENCIA V [facility] ECG Interpretation And Report Only ECG Interpretation And Report Only 47078 2017 MICHAEL JHA EK-LEAD EKG COMPLETED, INTERPRETED. NORMAL AXIS, NORMAL COMPLEXES HEART RHYTHM: SINUS [facility] Visual Function Screening Visual Function Screening 45116 2017 CHIRS ESPINOSA [facility] ECG Interpretation And Report Only ECG Interpretation And Report Only 85424 2017 ALYSON SNYDER [facility] Audiometry Group Testing Audiometry Group Testing 43441 2017 TRINITY PLASCENCIA V [facility] Visual Function Screening Visual Function Screening 20390 2017 WILIAM LEY Visual acuity performed using Snellen (distance)/G raham-Field (near)/Ishih christopher (color);Ster eopsis (depth perception) results written in PC Matrix. [facility] ECG Performance of Tracing Only ECG Performance of Tracing Only [id number] 2017 WILIAM LEY REPORT PLACED IN PT'S MEDICAL RECORD FOR PROVIDER TO REVIEW DURING PART 2 EXAM [facility] Repair And Refitting Gla es (Not For Aphakia) Repair And Refitting Glasses (Not For Aphakia) 54328 2017 ARIS NIEVES I [facility] Audiometry Group Testing Audiometry Group Testing 46623 2016 ENRIQUETA GRECO [facility] Patient education, not otherwise cla ified, non-physician provider, group, per se ion 2016 GRECOENRIQUETA [facility] Hepatitis B Vaccine (Active); To 11 Years Hepatitis B Vaccine (Active); To 11 Years 49719 2015 CINDI MARTÍNEZ Hep B, adolescent or pediatric; Series #: 1; .5 mL; IM; Left Arm; Mfg: [employer]; Lot: [id number]. [facility] Vaccines Viral Polio, Inactivated Vaccines Viral Polio, Inactivated 62474 2015 CINDI MARTÍNEZ IPV; Series #: 1; .5 mL; IM; Left Arm; Mfg: Sanofi Pasteur; Lot: [id number]. [facility] Immunization Administration By Injection, One Vaccine Immunization Administration By Injection, One Vaccine 79569 2015 CINDI MARTÍNEZ Immunization Administration By Injection, Each Additional Vaccine Immunization Administration By Injection, Each Additional Vaccine 75618 2015 CINDI MARTÍNEZ Skin Test Anergy Tuberculin Intradermal Skin Test Anergy Tuberculin Intradermal 52665 2015 CINDI MARTÍNEZ Meningococcal Conjugate Vaccine Quadrivalent Serogroups A, C, Y, W-135 2015 CINDI MARTÍNEZ Tdap Vaccine Tdap Vaccine 40403 2015 CINDI MARTÍNEZ Vaccines Adenovirus Type 4 Live, For Oral Use Vaccines Adenovirus Type 4 Live, For Oral Use 82498 2015 CINDI MARTÍNEZ Vaccines Adenovirus Type 7 Live, For Oral Use Vaccines Adenovirus Type 7 Live, For Oral Use 47686 2015 CINDI MARTÍNEZ Immunization Administration By Injection, Each Additional Vaccine Immunization Administration By Injection, Each Additional Vaccine 00241 2015 CINDI MARTÍNEZ Immunization Admin Intranasal / Oral Each Additional Vaccine Immunization Admin Intranasal / Oral Each Additional Vaccine 30630 2015 CINDI MARTÍNEZ Venipuncture Venipuncture 43713 2015 CINDI MARTÍNEZ Physician Supervised Injection Intramuscular Antibiotic Physician Supervised Injection Intramuscular Antibiotic 81727 2015 CINDI MARTÍNEZ Screening Test Of Visual Acuity, Quantitative, Bilateral Screening Test Of Visual Acuity, Quantitative, Bilateral 24966 2015 DAE ARBOLEDA [facility] Spectacles Services Fitting Monofocal Except For Aphakia Spectacles Services Fitting Monofocal Except For Aphakia 14136 2015 DAE ARBOLEDA [facility] Physician Supervised Group Educational Services Physician Supervised Group Educational Services 28759 2015 FARAZ ESPINOSA [facility] Audiometry Group Testing Audiometry Group Testing 56192 2015 FARAZ ESPINOSA [facility] Waiver services; not otherwise specified (NOS) DB MIX [facility] Case Management, each 15 minutes AMY ROSS [facility] Social History Combined list of available smoking, tobacco, and other social history from [facility] facilities. Social History Type Response Date Comment Sourc e Male 10/06/2020 Ambulatory Pha rmacy Sexual Orientation Ambula tory Pharmacy Gender identity Ambulator y Pharmacy This section is an empty soc ial history section. [facility] Assessment and Plan Combined list of future care activities from [facility] of Defense and Veterans Affairs facilities (e.g., assessment and plan notes, appointments, orders, and referrals). Additional future care activities may be listed in the Plan of Care section. Result Assessment and Plan Date Source Assessment and Plan No data available for this section 10/14/2024 Ambulatory Pharmacy Functional Status Combined list of recent functional and cognitive assessments recorded at [facility] Functional [place] Measurement (FIM) Scale: 1 = Total Assistance (Subject = 0% +), 2 = Maximal Assistance (Subject = 25% +), 3 = Moderate Assistance (Subject = 50% +), 4 = Minimal Assistance (Subject = 75% +), 5 = Supervision, 6 = Modified [place] (Device), 7 = Complete [place] (Timely, Safely). Assessment Date/Time Source Assessment Type Assessment Skill Assessment Score Assessment Details No data available for this section
== END 2024-10-14 16:31 | disposition home or self-care (01) ==
LOC: HO.HGI 15:20
PROVIDERS: PCP Nurse Practitioner Family; Visit Provider Internal Medicine
DX: K59.4 Anal spasm (principal); K58.0 Irritable bowel syndrome with diarrhea
CPT/HCPCS: 99214

== ENCOUNTER 2024-10-27 13:38 | Outpatient (AMB) | payer OTHER, SELFPAY ==
--- NOTE | 2024-10-27 13:41 | A.OFFVIS_ITS ---
Vital Signs 10/27/24 13:45 Height 5 ft 9 in Weight 180 lb BMI 26.6 Intake Visit Reasons: OV - left ankle injury, DOI 09/02/24 Intake Note: Marshall is a 29 year old right hand dominant male who presents today for a follow up of his left ankle injury, DOI 09/02/24. Patient states he is still having discomfort around his achilles. Patient mentions that his left great toe still feels a bit tingly when something brushes up against it. Allergies clindamycin Allergy (Mild, Verified 10/27/24 13:45) Hives HPI HPI OV - left ankle injury, DOI 09/02/24: Details: Mr. Zhong is a 29-year-old male who presents to the office today for routine follow-up status post left ankle injury on 09/02/2024. He has been wearing the tall walking boot as instructed. He is weight-bearing as tolerated. He is attending physical therapy and reports decreasing pain and difficulty with ambulation. [facility] Medical History IBS (irritable bowel syndrome) Surgical History H/O vasectomy Hx of colonoscopy History of esophagogastroduodenoscopy (EGD) Family History Father Substance use disorder Crohn's colitis Paternal Grandfather Substance use disorder Brother Substance use disorder Social History Housing: House Alcohol intake: current Alcohol intake frequency: 0-2 drinks per day Patient Tobacco Use Status: Former Tobacco user Years Smoked: 3 years e-Cigarette/Vaping Use: Never Used service: Yes Current occupational status: employed Current occupation: [employer] Current occupational exposures/hazards: Yes Cognitive needs: No Hearing needs: No Vision needs: Yes Review of Systems Const All systems reviewed & are unremarkable except as noted in HPI and below Physical Exam Vital Signs: BMI result Body Mass Index 26.6 Const General: cooperative, healthy appearing and no acute distress Resp Effort & Inspection: normal respiratory effort and able to speak in complete sentences Cardio Rate: regular rate Peripheral pulses: Peripheral pulses 2+ throughout Skin Lesions: no lesions Rashes: no rashes Extrem Other: Left ankle: No ecchymosis or edema. Able to perform dorsiflexion, plantar flexion pronation supination with moderate stiffness. NVI. Assessment & Plan Assessment & Plan (1) Moderate left ankle sprain: Code(s): S93.402A - Sprain of unspecified ligament of left ankle, initial encounter Category: Medical (2) Injury of left Achilles tendon: Code(s): S86.002A - Unspecified injury of left Achilles tendon, initial encounter Category: Medical Plan Mr. Zhong is a 29-year-old male who presents to the office today for routine follow-up status post left ankle injury on 09/02/2024. He has been wearing the tall walking boot as instructed. He is weight-bearing as tolerated. He is attending physical therapy and reports decreasing pain and difficulty with ambulation. Twelve the office today, I educated the patient that he can discontinue the tall walking boot at this time and weaning to a normal sneaker. She will continue to work with physical therapy on range of motion and strengthening. I did provide him with an updated work note to continue on the same restrictions until his follow-up appointment in 4-6 weeks. He may follow up sooner if needed. Coding Level of Care Code Est Pt Level 3 (92405) Diagnoses Moderate left ankle sprain S93.402A Injury of left Achilles tendon S86.002A
[2024-10-27 13:45] VITALS: BMI 26.6
== END 2024-10-27 14:01 | disposition home or self-care (01) ==
PROVIDERS: PCP Nurse Practitioner Family; Visit Provider Physician Assistant
DX: S93.402A Sprain of unspecified ligament of left ankle, initial encounter (principal); S86.002A Unspecified injury of left Achilles tendon, initial encounter
CPT/HCPCS: 99213

== ENCOUNTER → 2024-10-27 13:38 | Outpatient (BNVA) | payer OTHER, SELFPAY | PROVIDERS: PCP Nurse Practitioner Family; Visit Provider Physician Assistant | DX: R20.2 Paresthesia of skin (principal); S93.402D Sprain of unspecified ligament of left ankle, subsequent encounter; S86.002D Unspecified injury of left Achilles tendon, subsequent encounter; X58.XXXD Exposure to other specified factors, subsequent encounter | CPT/HCPCS: 99212 ==

== ENCOUNTER 2024-11-19 10:57 | Outpatient (RCR) | payer OTHER, SELFPAY ==
--- NOTE | 2024-10-08 12:48 | MHC.PT.EP ---
[facility] [place] Office [place] Office [place] Office [address] Roz Durand [address] [phone] F: [phone] F: [phone] F: [phone] F: [phone] Physical Therapy Plan of Care Date of Evaluation: 10/08/24 Date of Surgery: Diagnosis: Nondisplaced avulsion fracture of LEFT talus LEFT ankle sprain (ATF ligament) LEFT peroneus brevis tendon split tear Mild tenosynovitis peroneus longus tendon and flexor digitorum longus tendons (seen on MRI) RS Assessment: Marshall is a pleasant 29 y.o. male, active , who is referred to PT by Akanksha Fraga PA-C of [facility] with Dx of Nondisplaced avulsion fracture of LEFT talus, LEFT ankle sprain (ATF ligament), LEFT peroneus brevis tendon split tear and Mild tenosynovitis peroneus longus tendon and flexor digitorum longus tendons (seen on MRI). Patient impairments include pain, sensitivity to light touch with c/o numbness/tingling, impaired circulation in dependent positions, swelling and bruising of ankle/foot, tenderness to palpation, limited AROM of L ankle, weakness in L ankle/foot. 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 Patient will benefit from skilled PT to address aforementioned impairments and functional limitations to meet established goals. Frequency and Duration: The patient will be seen 2x.week for 6 weeks Short Term Goals: 3 weeks Patient demonstrates consistency and independence with HEP to self manage symptoms. Patient presents with increased R ankle DF 0 degrees to help normalize gait pattern with use of one crutch and no boot (once cleared by MD to wean). 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 Patient presents with increased R ankle DF 10 degrees to be able to ambulate on uneven surfaces. Treatment Plan: Modalities to reduce pain, spasms and effusion. Manual therapy to restore motion and function. Therapeutic exercise to improve strength and flexibility. Neuromuscular re-education for posture and balance. Therapeutic activities to return to functional activities of daily living. Electronically signed by: Brianda Alvarenga PT, DPT Please sign and return to therapist. Thank you for your referral.
--- NOTE | 2024-11-19 16:16 | MHC.PT.DC ---
[facility] [place] Office [place] Office [place] Office [address] Roz Durand [address] [facility] [phone] F: [phone] F: [phone] F: [phone] F: [phone] Physical Therapy Discharge Report Diagnosis: Nondisplaced avulsion fracture of LEFT talus LEFT ankle sprain (ATF ligament) LEFT peroneus brevis tendon split tear Mild tenosynovitis peroneus longus tendon and flexor digitorum longus tendons (seen on MRI) RS Date of Surgery: Date of Evaluation: 10/08/24 Date of Discharge: 11/19/24 Treatments to Date: 11 Cancellations to Date: No Shows to Date: Discharge Status: Achieved Goals Improved Function Independent with HEP Discharge Summary: Marshall demonstrates improved ankle ROM, strength, normalized gait pattern, and has met all PT goals and returned to the gym. Pt was given handout of return to run gradual program. He does well with more dynamic balance and agility exercises today. He agrees with discharge plan. Electronically signed by: Brianda Alvarenga, PT, DPT Please sign and return to therapist. Thank you for your referral.
== END 2024-12-15 09:56 | disposition home or self-care (01) ==
LOC: HO.PT 10:57
PROVIDERS: PCP Nurse Practitioner Family; Visit Provider Physician Assistant
DX: S92.155D Nondisplaced avulsion fracture (chip fracture) of left talus, subsequent encounter for fracture with routine healing (principal); S93.402D Sprain of unspecified ligament of left ankle, subsequent encounter
CPT/HCPCS: 97110; 97112; 97116; 97140; 97161; 97530; 97535

== ENCOUNTER 2024-12-10 07:55 | Outpatient (REF) | payer OTHER, SELFPAY ==
--- OUTSIDE RECORDS SUMMARY | 2024-12-10 07:59 | XMS_ITS | Continuity of Care Document ---
Author Name [facility] Organization [facility] Care Team Providers Care Thermostat Repairer Name Role Phone [facility] Unavailable Unavailable Problems Combined list of problems [...] ORAL, AUROBINDO PHARM, 500 ea. BOTTLE Active [id number] 2023 30 Pharmac y Data Transac tion Service Facilit y PANTOPRAZOL E SODIUM (PANTOPRAZO LE SODIUM), 40 MG, TABLET DR, ORAL, MYLAN, 90 ea. BOTTLE Active [id number] 2023 60 Pharmac y Data Transac tion Service Facilit y PANTOPRAZOL E SODIUM (PANTOPRAZO LE SODIUM), 40 MG, TABLET DR ORAL, MYLAN, 90 ea. BOTTLE Active [id number] 2023 90 Pharmac y Data Transac tion Service Facilit y TIZANIDINE HCL (TIZANIDINE HCL), 4MG, TABLET, ORAL, 'S LAB, 150 ea. BOTTLE Active [id number] 2023 5 Pharmac y Data Transac tion Service Facilit y XIFAXAN (RIFAXIMIN) , 550 MG, TABLET, ORAL, SALIX PHARMACEU, 60 ea. BOTTLE Active [id number] 4 2023 42 Pharmac y Data Transac tion Service Facilit y Allergies, Adverse Reactions, Alerts Combined list of allergies from Department of Defense and Veterans Affairs facilities. It does not include entries that were removed or entered in error. Substance Category Reaction Severity Reaction type Status Date Reported Comments Source CLINDAMYCIN Drug allergy (disorder) Unknown active 6 [facility] clindamycin Propensity to adverse reactions to substance Unknown Active Unknown Organizati on Immunizations Combined list of available immunizations from the Department of Defense and Veterans Affairs facilities. Immunization Series Date Given Administered By Site Reaction Lot Number CVX Code Drug Cement Loader Status Comments Source SARS-COV-2 (COVID-19) vaccine, mRNA, spike protein, LNP, preservative free, 100 mcg or 50 mcg dose 2 2020 [id number] [employer] (MOD) complet ed SARS-COV- 2 (COVID-19 ) vaccine, mRNA, spike protein, LNP, preservat phoebe free, 100 mcg or 50 mcg dose DoD SARS-COV-2 (COVID-19) vaccine, mRNA, spike protein, LNP, preservative free, 100 mcg or 50 mcg dose 1 2020 [id number] 207 [employer] (MOD) complet ed SARS-COV- 2 (COVID-19 ) vaccine, mRNA, spike protein, LNP, preservat phoebe free, 100 mcg or 50 mcg dose DoD influenza, injectable, quadrivalent 2018 [id number] 158 Seqirus complet ed influenza , injectabl e, quadrival ent 08/10/19 Given Ambulat ory Pharmac y influenza, injectable, quadrivalent, contains preservative 0 2018 [id number] 158 Seqirus (SEQ) complet ed influenza , injectabl e, quadrival ent, contains preservat phoebe DoD anthrax vaccine 2018 UNK 24 Emergent [employer] complet ed anthrax vaccine 05/29/19 Given Ambulat ory Pharmac y anthrax vaccine 4 2018 UNK 24 [employer] [place] (MIP) complet ed anthrax vaccine DoD yellow fever vaccine 2018 UNK 37 sanofi pasteur complet ed yellow fever vaccine 03/10/19 Given Ambulat ory Pharmac y yellow fever vaccine 0 2018 UNK 37 Sanofi Pasteur (PMC) complet ed yellow fever vaccine DoD Guyanese Encephalitis IM 2018 UNK 134 Valneva complet ed Guyanese Encephali tis IM 12/24/18 Given Ambulat ory Pharmac y vaccinia (smallpox) vaccine 2018 UNK 75 Sanofi Pasteur Incorporated complet ed vaccinia (smallpox ) vaccine 12/24/18 Given Ambulat ory Pharmac y typhoid vaccine, parenteral 2018 UNK 41 [employer] [place] complet ed typhoid vaccine, parentera l 12/24/18 Given Ambulat ory Pharmac y anthrax vaccine 2018 UNK 24 Emer[employer] complet ed anthrax vaccine 12/24/18 Given Ambulat ory Pharmac y anthrax vaccine 3 2018 UNK 24 [employer] [place] (MIP) complet ed anthrax vaccine DoD typhoid vaccine, parenteral, other than acetone-kille d, dried 2 2018 UNK 41 [employer] (BP) complet ed typhoid vaccine, parentera l, other than acetone-k illed, dried DoD vaccinia (smallpox) vaccine 0 2018 UNK 75 (JAMAL) complet ed vaccinia (smallpox ) vaccine DoD Guyanese Encephalitis vaccine for intramuscular administratio n 2 2018 UNK 134 [employer]Available [employer]ical (INT) complet ed Guyanese Encephali tis vaccine for intramusc ular administr ation DoD Guyanese Encephalitis IM 2018 [id number] 134 Valneva complet ed Guyanese Encephali tis IM 11/11/18 Given Ambulat ory Pharmac y anthrax vaccine 2018 [id number] [employer] complet ed anthrax vaccine 11/11/18 Given Ambulat ory Pharmac y anthrax vaccine 2 2018 [id number] 24 [employer] [place] (MIP) complet ed anthrax vaccine DoD Guyanese Encephalitis vaccine for intramuscular administratio n 1 2018 [id number] 134 DrAvailable [employer]ical (INT) complet ed Guyanese Encephali tis vaccine for intramusc ular administr ation DoD influenza, injectable, quadrivalent- pf 2017 [id number] 150 [employer] complet ed influenza , injectabl e, quadrival ent-pf 09/22/18 Given Ambulat ory Pharmac y anthrax vaccine 2017 [id number] 24 [employer] complet ed anthrax vaccine 09/22/18 Given Ambulat ory Pharmac y anthrax vaccine 1 2017 [id number] 24 [employer] [place] ([facility]) complet ed anthrax vaccine DoD Influenza, injectable, [...] dried 1 2016 [id number] 41 Sanofi Pasteur ([facility]) complet ed typhoid vaccine, parentera l, other than acetone-k illed, dried DoD Influenza, seasonal, injectable, preservative free 0 2016 [id number] 140 Zoom[employer] (SKB) complet ed Influenza , seasonal, injectabl e, preservat phoebe free DoD poliovirus vaccine, inactivated 2015 zzLef t Arm [id number] 10 sanofi pasteur complet ed polioviru s vaccine, inactivat ed 03/09/16 Given Ambulat ory Pharmac y hepatitis B pediatric/ado lescent 2015 zzLef t Arm [id number] 08 GlaxoSmithKli ne complet ed hepatitis B pediatric /adolesce nt 03/09/16 Given Ambulat ory Pharmac y hepatitis B vaccine, pediatric or pediatric/ado lescent dosage 1 2015 CINDI MIX [id number] 08 [facility] (SKB) complet ed hepatitis B vaccine, pediatric or pediatric /adolesce nt dosage DoD poliovirus vaccine, inactivated 1 2015 CINDI MIX [id number] 10 Sanofi Pasteur ([facility]) complet ed polioviru s vaccine, inactivat [...] purified protein derivative 2015 zzLef t Arm [id number] 96 sanofi pasteur complet ed tuberculi n purified protein derivativ e 02/03/16 Given Ambulat ory Pharmac y meningococcal oligosacchari de (MCV4O) 2015 zzLef t Arm [id number] 136 sanofi pasteur complet ed meningoco ccal oligosacc haride (MCV4O) 02/03/16 Given Ambulat ory Pharmac y adenovirus vaccine, live 2015 zzLef t Arm [id number] 143 Teva Pharmaceut[employer] ls complet ed adenoviru s vaccine, live 02/03/16 Given Ambulat ory Pharmac y tetanus, diphtheria, acellular pertu is 2015 zzLef t Arm [id number] 115 GlaxoSmithKli ne complet ed tetanus, diphtheri a, acellular pertussis 02/03/16 Given Ambulat ory Pharmac y tuberculin skin test; purified protein derivative solution, intradermal 1 2015 Unknown, Provider [id number] 96 Sanofi Pasteur ([facility]) complet ed tuberculi n skin test; purified protein derivativ e solution, intraderm al DoD tetanus toxoid, reduced diphtheria toxoid, and acellular pertu is vaccine, adsorbed 1 2015 Unknown, Provider [id number] [address] [place], [place] [address] (SKB) complet ed tetanus toxoid, reduced diphtheri a toxoid, and acellular pertussis vaccine, adsorbed DoD meningococcal oligosacchari de (groups A, C, Y and W-135) diphtheria toxoid conjugate vaccine (MCV4O) 1 2015 Unknown, Provider [id number] 136 Sanofi Pasteur ([facility]MC) complet ed meningoco ccal oligosacc haride (groups A, C, Y and W-135) diphtheri a toxoid conjugate vaccine (MCV4O) DoD Adenovirus, type 4 and type 7, live, oral 1 2015 Unknown, Provider [id number] 4 [facility] [employer] (BRR) complet ed Adenoviru s, type 4 and type 7, live, oral DoD Results Combined list of recent chemistry, hematology and other laboratory results from Department of Defense and Veterans Affairs, ranging from 15 months to all on record, depending upon the facility. Order Name Results Value Reference Range Date Interpretation Specimen Comments Source Infectiou s Disease HIV-1/O/2 Non-Reac tive 1 ( 4 [...] Prevention' s HIV diagnostic algorithm. Refer to [facility] Lab Guide for additional information : [email or web address] [email or web address]/ [email or web address]/kx5/EPIL ab/[email or web address]/doe [email or web address].asp x Testing performed by [facility] Miscellan eous Sendouts Repository Sample Received ( 4 1:55 PM) 08/19 N [facility] Encounters Combined list of: 1) Encounters from Department of Veterans Affairs facilities going backup to the last 18 months, not all VA inpatient encounters are included; 2) Encounters from the Department of Defense facilities going backup to 280 months. Location Location Details Encounter Type Encounter Number Reason For Visit Attending Provider ADM Date DC Date Status [facility] OUTPAT[facility] [id number] MARYSOL SALDAÑA 01/30 Released w/o Limitations [facility] OUTPATIENT [id number] SUSANA CEJA 02/01 Released w/o Limitations [facility]k [facility](MCR D Optomet ry Clinic) [facility] Recruit Medical Process) OUTPATIENT [id number] INITIAL INPROCE KAMALJIT MENDOZA N 02/02 Released w/o Limitations [facility] Rec[facility] Medical Process ) [facility] OUTPATIENT [id number] 2ND VISIT FOR INPROCE KAMALJIT MENDOZA N 03/09 Released w/o Limitations [facility] Recruit Medical Process ) [facility] Weapons BAS) OUTPATIENT [id number] Notes Entered by: KAIDEN KOHLER 16 Mar 2016 0652 ------- ------- ------- ------- -- Miguel/Alejandrina9- numb left FLORENCE Jordan 03/16 Released with Work/Duty Limitations [facility] Weapons BAS) [facility] OUTPATIENT [id number] Notes Entered by: JOSE MARTIN MONZON 24 Mar 2016 0755 ------- ------- ------- ------- -- Miguel/1048 - Luis jang (L) hand x 10 days DIVYA CASILLAS 03/24 Released w/o Limitations [facility] Duty Sick Call) [facility] neha([facility] First BN BAS) OUTPATIENT [id number] Notes Entered by: RAE CAMPOS 26 Mar 2016 0701 ------- ------- ------- ------- -- Miguel/1048- F/U LEFT HAND RAE ALEJO 03/26 Released w/o Limitations [facility] First BN BAS) [facility] First BN BAS) OUTPATIENT [id number] Notes Entered by: RAE CAMPOS 28 Mar 2016 0650 ------- ------- ------- ------- -- Miguel/1048- F/U RADIAL RAE RIVERA 03/28 Released w/o Limitations [facility] First BN BAS) [facility] neha[facility] We[facility]) OUTPATIENT [id number] Notes Entered by: HARSHA ALVA 03 Apr 2016 0619 ------- ------- ------- ------- -- Miguel/9 FLORENCE Paz 04/03 Released w/o Limitations [facility] Weapons BAS) [facility] Program) OUTPATIENT [id number] Notes Entered by: ENRIQUETA LOBATO 05 Feb 2017 1428 ------- ------- ------- ------- -- ENRIQUETA MIRAMONTES 02/05 Released w/o Limitations [facility] HC Program ) [facility] Med Readiness Cln) OUTPATIENT [id number] Notes Entered by: CRISTAL NOLAND 28 May 2017 0828 ------- ------- ------- ------- -- LCPL Course Sydneyi TERRENCE Cuevas 05/28 Released w/o Limitations [facility] Med Readine ss Cln) [facility](TP Optometry ) OUTPATIENT [id number] cpl-max ARIS Stock I 11/19 Released w/o Limitations [facility](T P Optomet ry) [facility] Health) OUTPATIENT [id number] ALIS PT1 BASE (MACG-3 8) WILIAM LEY 01/21 Released w/o Limitations [facility]) [facility] HC Program) OUTPATIENT [id number] Notes Entered by: YOVANI TRAN V 21 Jan 2018 0843 ------- ------- ------- ------- -- TRINITY Brothers V 01/21 Released w/o Limitations [facility] HC Program ) [facility]) OUTPATIENT [id number] PT2 ALYSON HERNANDEZ 01/23 Released w/o Limitations [facility]) [facility]) OUTPATIENT [id number] CALLY PT1 BASE (MACG-3 8) CHRIS ESPINOSA 05/30 Released w/o Limitations [facility]) [facility]) OUTPATIENT [id number] PART 2 IMCHAEL MALLORY 06/23 Released w/o Limitations [facility]) Theater Facility OUTPATIENT [id number] Theater Provider 04/06 Released w/o Limitations Theater Facilit y [facility] HC Program) OUTPATIENT [id number] Notes Entered by: YOVANI TRAN V 29 Oct 2019 0827 ------- ------- ------- ------- -- term TRINITY PLASCENCIA V 10/29 Released w/o Limitations [facility]( [facility] HC Program ) [facility] Optometry Cln) OUTPATIENT [id number] Notes Entered by: RA DUDLEY BARBOSA 10 Nov 2019 1223 ------- ------- ------- ------- -- SYDNI SANDOVAL 11/10 Released w/o Limitations [facility] Optomet ry Cln) [facility] MCM[facility] Med Readiness Cln) OUTPATIENT [id number] JUN PHYS/MA -11/02 [id number] TERESA CERVANTES 11/18 Released w/o Limitations [facility] Med Readine ss Cln) [facility] Fam Med PCMH Tm 2) TELE CONSULT [id number] Notes Entered by: TERESA CERVANTES 05 Jan 2020 1352 ------- ------- ------- ------- -- ePHA- MWCS38 TERESA CERVANTES 01/04 [facility]( [facility] Fam Med PCMH Tm 2) [facility] Sarah( Med Readiness Center) OUTPATIENT [id number] [facility] /B one bruise left knee/Smith ll DB MIX 04/06 Released with Work/Duty Limitations [facility] Sarah( Med Readine ss Center) [facility] [place]( [facility]) OUTPATIENT [id number] Notes Entered by: ARTHUR COLIN 25 Apr 2022 1611 ------- ------- ------- ------- -- Limdu screen AMY ROSS 04/25 Released w/o Limitations [facility] Sarah( GR Case Managem ent) [id number] AMDS Outpatient [id number] JORGE A HARRISON 08/21 Discharge Disposition: Home or Self Care [id number] AMDS 0035C-[id number] C [facility] [id number] ITZELMEDINeha AMARTELICIA 09/09 Discharge Disposition: Home or Self Care 0035C-N [facility] [place] Procedures Combined list of: 1) Procedures from Department of Veterans Affairs facilities going back up to thelast 18 months, not all VA non-surgical procedures are included; 2) All procedures from the Department of Defense facilities. Procedure Procedure Type Code Date Perfomer Comments [facility] e CASE MANAGEMENT, EACH 15 MINUTES 2021 [facility] WAIVER SERVICES; NOT OTHERWISE SPECIFIED (NOS) 2021 [facility] IMMUNIZATION ADMINISTRATION (INCLUDES PERCUTANEOUS, INTRADERMAL, SUBCUTANEOUS, OR INTRAMUSCULAR INJECTIONS); EACH ADDITIONAL VACCINE (SINGLE OR COMBINATION VACCINE/TOXOID) 2015 DoD SKIN TEST; TUBERCULOSIS, INTRADERMAL 2015 [facility] PHYS/OTH QUALIFIED HEALTH NATIONAL SALES MANAGER QUALIFIED,EDUCATION ,TRAIN,LICENSURE/RE GULATION (WHEN APPLICABLE) EDUC SER RENDERED TO PATS IN A GRP SETTING (EG,,OBESIT Y,OR DIABETIC INSTRUCT) 2015 [facility] SCREENING TEST OF VISUAL ACUITY, QUANTITATIVE, BILATERAL 2015 [facility] DETERMINATION OF REFRACTIVE STATE 2019 [...] 2017 DoD AUDIOMETRIC TESTING OF GROUPS 2017 DoD VIS FUNCT SCREEN,AUTOMAT/SEMI -AUTOMAT BILAT QUANT DETERM VISUAL ACUITY,OCULAR ALIGN,COLOR VISION,PSEUDOISOCHR OMAT PLATES,& FIELD VIS (MAY INC ALL/SOME SCRN DETERM FOR CONTRAST SENSITIV,VIS UND GLARE) 2017 [facility] AUDIOMETRIC TESTING OF GROUPS 2016 [facility] Determination Of Refractive State Determination Of Refractive State 87394 2019 [facility] SYDNI [facility] Spectacles Services Fitting Monofocal Except For Aphakia Spectacles Services Fitting Monofocal Except For Aphakia 87288 2019 [facility] Ophthalmological New Patient Start Comprehensive Care Ophthalmological New Patient Start Comprehensive Care 74541 2019 [facility] Audiometry Group Testing Audiometry Group Testing 14945 2019 TRINITY PLASCENCIA V [facility] ECG Interpretation And Report Only ECG Interpretation And Report Only 40618 2017 MICHAEL JHA EK-LEAD EKG COMPLETED, INTERPRETED. NORMAL AXIS, NORMAL COMPLEXES HEART RHYTHM: SINUS [facility] Visual Function Screening Visual Function Screening 41496 2017 CHRIS ESPINOSA [facility] ECG Interpretation And Report Only ECG Interpretation And Report Only 82488 2017 ALYSON SNYDER [facility] Audiometry Group Testing Audiometry Group Testing 26185 2017 TRINITY PLASCENCIA V [facility] Visual Function Screening Visual Function Screening 85960 2017 WILIAM LEY Visual acuity performed using Snellen (distance)/G raham-Field (near)/Ishih christopher (color);Ster eopsis (depth perception) results written in PC Matrix. [facility] ECG Performance of Tracing Only ECG Performance of Tracing Only 25478 2017 WILIAM LEY REPORT PLACED IN PT'S MEDICAL RECORD FOR PROVIDER TO REVIEW DURING PART 2 EXAM [facility] Repair And Refitting Gla es (Not For Aphakia) Repair And Refitting Glasses (Not For Aphakia) 08225 2017 ARIS NIEVES I [facility] Audiometry Group Testing Audiometry Group Testing 36754 2016 ENRIQUETA GRECO Patient education, not otherwise cla ified, non-physician provider, group, per se ion 2016 ENRIQUETA GRECO Hepatitis B Vaccine (Active); [place] To 11 Years Hepatitis B Vaccine (Active); [place] To 11 Years 28211 2015 CINDI MARTÍNEZ Hep B, adolescent or pediatric; Series #: 1; .5 mL; IM; Left Arm; Mfg: RingDNA; Lot: [id number]. [facility] Vaccines Viral Polio, Inactivated Vaccines Viral Polio, Inactivated 74445 2015 CINDI MARTÍNEZ IPV; Series #: 1; .5 mL; IM; Left Arm; Mfg: Sanofi Pasteur; Lot: [id number]. Luis Immunization Administration By Injection, One Vaccine Immunization Administration By Injection, One Vaccine 85172 2015 CINDI MARTÍNEZ Immunization Administration By Injection, Each Additional Vaccine Immunization Administration By Injection, Each Additional Vaccine 64954 2015 CINDI MARTÍNEZ Skin Test Anergy Tuberculin Intradermal Skin Test Anergy Tuberculin Intradermal 84539 2015 CINDI MARTÍNEZ Meningococcal Conjugate Vaccine Quadrivalent Serogroups A, C, Y, W-135 2015 CINDI MARTÍNEZ Tdap Vaccine Tdap Vaccine 71438 2015 CINDI MARTÍNEZ Vaccines Adenovirus Type 4 Live, For Oral Use Vaccines Adenovirus Type 4 Live, For Oral Use 42981 2015 CINDI MARTÍNEZ Vaccines Adenovirus Type 7 Live, For Oral Use Vaccines Adenovirus Type 7 Live, For Oral Use 43207 2015 CINDI MARTÍNEZ Immunization Administration By Injection, Each Additional Vaccine Immunization Administration By Injection, Each Additional Vaccine 81866 2015 CINDI MARTÍNEZ Immunization Admin Intranasal / Oral Each Additional Vaccine Immunization Admin Intranasal / Oral Each Additional Vaccine 67973 2015 CINDI MARTÍNEZ Venipuncture Venipuncture 28888 2015 CINDI MARTÍNEZ Physician Supervised Injection Intramuscular Antibiotic Physician Supervised Injection Intramuscular Antibiotic 83686 2015 CINDI MARTÍNEZ Screening Test Of Visual Acuity, Quantitative, Bilateral Screening Test Of Visual Acuity, Quantitative, Bilateral 72524 2015 DAE ARBOLEDA [facility] [facility] Fitting Monofocal Except For Aphakia Spectacles Services Fitting Monofocal Except For Aphakia 08677 2015 DAE ARBOLEDA [facility] Physician Supervised Group Educational Services Physician Supervised Group Educational Services 52251 2015 FARAZ ESPINOSA [facility] Audiometry Group Testing Audiometry Group Testing 84005 2015 FARAZ ESPINOSA DoD Waiver services; not otherwise specified (NOS) DB MIX [facility] Case Management, each 15 minutes AMY ROSS DREA [facility] No data available for this section Ambulato ry Pharmacy Social History Combined list of available smoking, tobacco, and other social history from Department of Defense and Veterans Affairs facilities. Social History Type Response Date Comment Sourc e Sex Representation Male 10/06/2020 Unknow n Organization This section is an empty soc ial history section. [facility] Sexual Orientation Ambula tory Pharmacy Gender identity Ambulator y Pharmacy Assessment and Plan Combined list of future care activities from Department of Defense and Veterans Affairs facilities (e.g., assessment and plan notes, appointments, orders, and referrals). Additional future care activities may be listed in the Plan of Care section. Result Assessment and Plan Date Source Assessment and Plan No data available for this section 12/10/2024 Ambulatory Pharmacy Functional Status Combined list of recent functional and cognitive assessments recorded at Department of Defense and Veterans Affairs (VA).VA Functional [place] Measurement (FIM) Scale: 1 = Total Assistance (Subject = 0% +), 2 = Maximal Assistance (Subject = 25% +), 3 = Moderate Assistance (Subject = 50% +), 4 = Minimal Assistance (Subject = 75% +), 5 = Supervision, 6 = Modified [place] (Device), 7 = Complete [place] (Timely, Safely). Assessment Date/Time Source Assessment Type Assessment Skill Assessment Score Assessment Details No data available for this section
[2024-12-10 10:41] LABS: MANUAL DIFF FLAG NO
[2024-12-10 10:54] LABS: Basophils Absolute Auto 0.1 X10*3/uL (0.0-0.2); Basophils Percent Auto 1.2 % (0-2); Eosinophils Absolute Auto 0.1 X10*3/uL (0.0-0.4); Eosinophils Percent Auto 1.8 % (0-4); Hematocrit 46.1 % (42.0-52.0); Imm Gran Abs Auto 0.01 X10*3/uL (0.00-0.03); Imm Gran Pct Auto 0.2 % (0.0-0.4); Lymphocytes Absolute Auto 2.1 X10*3/uL (1.2-4.9); Lymphocytes Percent Auto 41.6 % (20-40); Mean Corpuscular HGB Conc 32.5 g/dl (31.0-36.0); Mean Corpuscular Hemoglobin 28.1 pg (27.0-33.0); Mean Corpuscular Volume 86.5 fL (80.0-98.0); Mean Platelet Volume 9.5 fL (9.4-12.4); Monocytes Absolute Auto 0.4 X10*3/uL (0.1-1.2); Monocytes Percent Auto 7.3 % (2-11); Neutrophils Absolute Auto 2.4 x10*3/uL (2.0-8.3); Neutrophils Percent Auto 47.9 % (45-73); Platelet Count 315 X10*3/uL (160-400); Red Blood Count 5.33 X10*6/uL (4.60-5.80); Red Cell Distribution Width 12.3 % (11.0-16.0); White Blood Count 5.1 X10*3/uL (4.8-10.8)
[2024-12-10 11:21] LABS: Alanine Aminotransferase 87 U/L (0-40); Albumin Level 4.5 g/dL (3.5-5.0); Alkaline Phosphatase 52 U/L (39-117); Anion Gap 12 (12-20); Aspartate Amino Transferase 67 U/L (5-37); Bilirubin Total 0.6 mg/dL (0.0-1.0); Blood Urea Nitrogen 11 mg/dL (9-16); Calcium 9.2 mg/dL (8.4-10.2); Carbon Dioxide 27 mmol/L (22-29); Chloride 106 mmol/L (96-108); Cholesterol 206 mg/dL (<200); Estimated Glomerular Filt Rate > 60; Glucose Fasting 90 mg/dL (60-99); HDL Cholesterol 26 mg/dL (>40); LDL Cholesterol Calculated 148 mg/dL (<100); Potassium 4.5 mmol/L (3.3-5.1); Sodium 140 mmol/L (135-145); Total Protein 7.9 g/dL (6.5-8.0); Triglycerides 163 mg/dL (<150)
[2024-12-10 11:24] LABS: TSH reflex Free T4 1.22 uIU/mL (0.32-4.0)
[2024-12-10 11:43] LABS: Appearance Urine Clear; Color Urine Dark Yellow; Glucose Urine UA Negative (Negative); Leukocyte Esterase Urine Negative (Negative); Nitrite Urine Negative (Negative); Specific Gravity - Urine 1.025 (1.005-1.025); Urine Blood Negative (Negative); Urine Ketones Negative (Negative); Urine Protein Trace mg/dL (Neg-Trace)
== END 2024-12-10 07:56 | disposition home or self-care (01) ==
LOC: HO.HMGCLDS 07:55
PROVIDERS: PCP Nurse Practitioner Family; Visit Provider Nurse Practitioner Family
DX: Z00.00 Encounter for general adult medical examination without abnormal findings (principal); Z13.6 Encounter for screening for cardiovascular disorders
CPT/HCPCS: 36415; 80053; 80061; 81003; 84443; 85025

== ENCOUNTER 2024-12-15 14:18 | Outpatient (AMB) | payer OTHER, SELFPAY ==
[2024-12-15 14:42] VITALS: BP 120/70; PULSE 60; TEMP 36.6; O2SAT 98; BMI 29.5
--- NOTE | 2024-12-15 14:42 | A.OFFPC_ITS ---
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 Accompanied by: Self / Same As Patient Allergies clindamycin Allergy (Mild, Verified 12/15/24 16:25) Hives Medication List - Last Reconciled 12/15/24 by TERRANCE Guerra- pantoprazole 40 mg PO DAILY tizanidine (Zanaflex) 2 mg (1/2 x 4 mg) PO BID PRN 5 days Tobacco use date assessed: 12/15/24 Dental Screening Dental Screen Date: 12/15/24 Did you have a dental visit in the last 12 months?: Yes Did you have a dental problem in the last 6 months where you did not have access to dental care?: No Was dental information given to patient?: Patient has dentist HPI 3 months f/up HPI Details Chief Complaint Follow-up for elevated liver enzymes and cholesterol. History of Present Illness The patient is a 29-year-old male presenting for a follow-up to address elevated liver enzymes and high cholesterol levels identified in prior laboratory studies. He maintains a high level of physical activity through weightlifting and uses supplements aimed at enhancing muscle growth and testosterone levels. Despite denying steroid use, the patient acknowledges taking supplements that may contribute to these findings. He denies experiencing abdominal pain or changes in bowel movements and is receiving therapy for pelvic floor dysfunction linked to ongoing gastrointestinal issues. After addressing cerumen impaction, his tympanic membrane was observed without difficulty. Education regarding dietary adjustments and supplement use has been provided, emphasizing lean protein sources and increased hydration. Social History - Engages in regular weightlifting and p hysical activity. - Uses supplements to aid in muscle buil ding and testosterone enhancement. - Denies use of steroids. - No reported substance abuse or alcohol use related to conversation. Health Maintenance - Education on the risks of supplement u se and potential impact on liver fu nction and cholesterol levels. - Encouraged dietary modifications to in clude lean proteins and increased water intake. Review of Systems - Gastrointestinal: Denies abdominal dis comfort or blood in stool. -denies any cp or sob Physical Exam General: Cooperative, healthy appearing, comfortable, no acute distress and well developed Orientation: Patient oriented x3 Limitations: No limitations Head: Normal to inspection Ears: Hearing grossly normal bilaterally, quite a bit of cerumen in the right ear, TM was easily seen after ear lavage Nose: Normal external nose present Face and sinus: Normal facial exam Eyes: Appearance normal, both eyes and all related structures Neck: Normal visual inspection and Yes full ROM Respiratory: Normal respiratory effort and able to speak in complete sentences. Clear to auscultation bilaterally Cardiovascular: Regular rate and rhythm. Normal S1 and S2 GI: Normal to inspection. Soft to palpation and nontender Skin: No rashes or lesions noted Neuro: Patient oriented x3 Extremities: Normal to inspection Results - Labs: Elevated liver enzymes, elevated cholesterol level. Plan Monitoring and differentiation of elevated liver enzymes and cholesterol levels will be managed through an abdominal ultrasound and hepatitis screening. There is a need to evaluate the impact of supplements on hepatic and lipid metabolism and recommend dietary adjustments to support liver function and lower cholesterol levels. The plan includes re-evaluating the liver profile and monitoring progression. Supplement cessation might aid improvement, and this hypothesis will be investigated further with continued observation. Cerumen impaction resolution will be monitored for recurrence. Discussion Notes In discussing the patient's elevated liver enzymes and cholesterol, I explained the potential connection to their supplement regimen. Risks associated with prolonged elevated enzyme levels and dyslipidemia were covered, showcasing how cessation might allow physiological levels to return to baseline. The abdominal ultrasound and hepatitis screen are planned to identify any underlying hepatic pathology, discussing the benefits of these assessments in providing clarity. Emphasis was placed on dietary modification for risk reduction, encouraging increased water intake and utilization of lean proteins. We agreed to re- evaluate liver tests soon, stressing the importance of reporting any new symptoms. Avoidance of supplement use was recommended until clearer conclusions can be drawn. Patient Instructions - Stop using supplements and report any new symptoms. - Follow advice regarding dietary change s, particularly increasing water intake and lean protein. - Return for an abdominal ultrasound and hepatitis screening as scheduled. - Observe for any changes in GI symptoms and seek care earlier if issues arise. - Monitor ear health for any recurrence of wax buildup. [facility] Medical History IBS (irritable bowel syndrome) Surgical History H/O vasectomy Hx of colonoscopy History of esophagogastroduodenoscopy (EGD) Family History Father Substance use disorder Crohn's colitis Paternal Grandfather Substance use disorder Brother Substance use disorder Social History Housing: House Alcohol intake: current Alcohol intake frequency: 0-2 drinks per day Patient Tobacco Use Status: Former Tobacco user Years Smoked: 3 years e-Cigarette/Vaping Use: Never Used service: Yes Current occupational status: employed Current occupation: [employer] Current occupational exposures/hazards: Yes Cognitive needs: No Hearing needs: No Vision needs: Yes Questionnaire PHQ-9 Over the last 2 weeks, how often have you been bothered by any of the following problems? 1. Little interest or pleasure in doing things: several days 2. Feeling down, depressed, or hopeless: several days 3. Trouble falling or staying asleep, or sleeping too much: more than half the days 4. Feeling tired or having little energy: more than half the days 5. Poor appetite or overeating: several days 6. Feeling bad about yourself - or that you are a failure or have let yourself or your family down: several days 7. Trouble concentrating on things, such as reading the newspaper or watching television: several days 8. Moving or speaking so slowly that other people could have noticed. Or the opposite - being so fidgety or restless that you have been moving around a lot more than usual: several days 9. Thoughts that you would be better off or of hurting yourself in some way: not at all Total score: 10 Depression Screening Interpretation: Positive (denies any si or hi) Depression Screening Follow-up: Existing condition and In treatment Depression Screening Done: Yes 53865 - PHQ-9 Billing: Yes Source: Developed by Drs. Marty Mendes, Zoë Blake, Lee Latif and colleagues, with an educational morgan from [employer]. Thrive Questionnaire Date Thrive assessed: 09/15/24 I am a: Patient What is your living situation today?: I have a steady place to live Within the past 12 months, did the food you bought not last and you didn't have the money to get more?: Never true Within the past 12 months, did you worry whether your food would run out before you got money to buy more?: Never true Do you have trouble paying for medicines?: No Do you have trouble getting transportation to medical appointments?: No Do you have trouble paying your heating and electricity bill?: No Do you have trouble taking care of your child, family member or friend?: No Do you have trouble with day-to-day activities such as bathing, preparing meals, shopping, managing finances, etc.?: No Are you currently unemployed and looking for a job?: No Are you interested in more education?: No Please select the resources that you would like help with: None Currently or been in a relationship where the following occur: No concerns reported THRIVE Score: 0 AUDIT C Alcohol Use Questionnaire (AUDIT-C) 1. How often do you have a drink containing alcohol?: Monthly or less 2. How many drinks containing alcohol do you have on a typical day when you are drinking?: 3 or 4 3. How often do you have six or more drinks on one occasion?: Less than monthly Total Score: 3 Score Reviewed/Action Taken: Yes BAKARI-7 AMB Questionnaire BAKARI-7 Date BAKARI - 7 assessed: 12/15/24 Feeling nervous, anxious, or on edge: 2 = More than half the days Not being able to stop or control worryin = More than half the days Worrying too much about different things: 2 = More than half the days Trouble relaxin = More than half the days Being so restless that it is hard to sit still: 2 = More than half the days Becoming easily annoyed or irritable: 2 = More than half the days Feeling afraid as if something awful might happen: 2 = More than half the days Total BAKARI-7 score (0-4 normal; 5-9 mild; 10-14 moderate; 15-21 severe): 14 Source: Developed by Drs. Marty Mendes, Zoë Blake, Lee Latif and colleagues, with an educational morgan from [email or web address] BAKARI-7 Assessment Billing BAKARI-7 Assessment Tool: BAKARI-7 Assessment 55581 Physical exam (Primary Care) Vital Signs: Last Vital Signs Temp 97.9 F 12/15/24 14:42 Pulse 60 12/15/24 14:42 BP 120/70 12/15/24 14:42 Pulse Ox 98 12/15/24 14:42 BMI result Body Mass Index 29.5 Tobacco/Smoking Status: Tobacco use Status Tobacco use date assessed 12/15/24 12/15/24 14:45 Patient Tobacco Use Status Former Tobacco user 12/15/24 14:45 e-Cigarette/Vaping Use Never Used 12/15/24 14:45 PHQ-9: PHQ-9 Score PHQ-9: Total score 12/15/24 14:45 Depression Screening Interpretation: Positive (denies any si or hi) Depression Screening Follow-up: Existing condition and In treatment Thrive Assessment: Date of Thrive Assessment Date Thrive assessed 09/15/24 12/15/24 14:45 Currently or been in a relationship where the following occur: No concerns re ported Office Procedures Cerumen Removal From which ear canal was the cerumen removed: right Notes: patient tolerated procedure well, no complications and ear canal clear [id number] Irrigation/Lavage Coding Level of Care Code Est Pt Level 3 (92032) Diagnoses Elevated liver enzymes R74.8 Cerumen impaction H61.20 CPT Codes Office Procedure - CPT: 83265-Kdw Irrigation/Lavage ([id number]) Additional Codes BAKARI-7 Assessment Billing - BAKARI-7 Assessment Tool: BAKARI-7 Assessment 87118 ([id number]) PHQ-9 - 59222 - PHQ-9 Billing: Yes ([id number]) Assessment & Plan Assessment & Plan (1) Elevated liver enzymes: Code(s): R74.8 - Abnormal levels of other serum enzymes Category: Medical (2) Cerumen impaction: Code(s): H61.20 - Impacted cerumen, unspecified ear Category: Medical Plan . Orders: Orders US abdomen complete Today R74.8 - Abnormal levels of other serum enzymes Hepatitis A,B,C Profile Today R74.8 - Abnormal levels of other serum enzymes Comprehensive Met. Panel Today R74.8 - Abnormal levels of other serum enzymes
--- OUTSIDE RECORDS SUMMARY | 2024-12-15 17:35 | XMS_ITS | Continuity of Care Document ---
Author Name [facility] Organization [facility] Care Team Providers Care [employer] Director Name Role Phone [facility] Unavailable Unavailable Problems Combined list of problems [...] ORAL, AUROBINDO PHARM, 500 ea. BOTTLE Active [id number] 2023 30 Pharmac y Data Transac tion Service Facilit y PANTOPRAZOL E SODIUM (PANTOPRAZO LE SODIUM), 40 MG, TABLET DR, ORAL, MYLAN, 90 ea. BOTTLE Active [id number] 2023 60 Pharmac y Data Transac tion Service Facilit y PANTOPRAZOL E SODIUM (PANTOPRAZO LE SODIUM), 40 MG, TABLET DR ORAL, MYLAN, 90 ea. BOTTLE Active [id number] 2023 90 Pharmac y Data Transac tion Service Facilit y TIZANIDINE HCL (TIZANIDINE HCL), 4MG, TABLET, ORAL, 'S LAB, 150 ea. BOTTLE Active [id number] 2023 5 Pharmac y Data Transac tion Service Facilit y XIFAXAN (RIFAXIMIN) , 550 MG, TABLET, ORAL, SALIX PHARMACEU, 60 ea. BOTTLE Active [id number] 4 2023 42 Pharmac y Data Transac tion Service Facilit y Allergies, Adverse Reactions, Alerts Combined list of allergies from Department of Defense and Veterans Affairs facilities. It does not include entries that were removed or entered in error. Substance Category Reaction Severity Reaction type Status Date Reported Comments Source CLINDAMYCIN Drug allergy (disorder) Unknown active 6 [email or web address] clindamycin Propensity to adverse reactions to substance Unknown Active Unknown Organizati on Immunizations Combined list of available immunizations from the Department of Defense and Veterans Affairs facilities. Immunization Series Date Given Administered By Site Reaction Lot Number CVX Code Drug Wheel Cutter Status Comments Source SARS-COV-2 (COVID-19) vaccine, mRNA, spike protein, LNP, preservative free, 100 mcg or 50 mcg dose 2 2020 [id number] 207 [employer] (MOD) complet ed SARS-COV- 2 (COVID-19 ) vaccine, mRNA, spike protein, LNP, preservat phoebe free, 100 mcg or 50 mcg dose DoD SARS-COV-2 (COVID-19) vaccine, mRNA, spike protein, LNP, preservative free, 100 mcg or 50 mcg dose 1 2020 [id number] 207 [employer] (MOD) complet ed SARS-COV- 2 (COVID-19 ) vaccine, mRNA, spike protein, LNP, preservat phoebe free, 100 mcg or 50 mcg dose DoD influenza, injectable, quadrivalent 2018 [id number] 158 Seqirus complet ed influenza , injectabl e, quadrival ent 08/10/19 Given Ambulat ory Pharmac y influenza, injectable, quadrivalent, contains preservative 0 2018 [id number] 158 Seqirus (SEQ) complet ed influenza , injectabl e, quadrival ent, contains preservat phoebe DoD anthrax vaccine 2018 UNK 24 Emergent Biosolutions complet ed anthrax vaccine 05/29/19 Given Ambulat ory Pharmac y anthrax vaccine 4 2018 UNK 24 [employer] [place] (MIP) complet ed anthrax vaccine DoD yellow fever vaccine 2018 UNK 37 sanofi pasteur complet ed yellow fever vaccine 03/10/19 Given Ambulat ory Pharmac y yellow fever vaccine 0 2018 UNK 37 Sanofi Pasteur (PMC) complet ed yellow fever vaccine DoD [place] Encephalitis IM 2018 UNK 134 Valneva complet ed [place] Encephali tis IM 12/24/18 Given Ambulat ory Pharmac y vaccinia (smallpox) vaccine 2018 UNK 75 Sanofi Pasteur Incorporated complet ed vaccinia (smallpox ) vaccine 12/24/18 Given Ambulat ory Pharmac y typhoid vaccine, parenteral 2018 UNK 41 [employer] [place] complet ed typhoid vaccine, parentera l 12/24/18 Given Ambulat ory Pharmac y anthrax vaccine 2018 UNK 24 Emer[employer] complet ed anthrax vaccine 12/24/18 Given Ambulat ory Pharmac y anthrax vaccine 3 2018 UNK 24 [employer] [place] (MIP) complet ed anthrax vaccine DoD typhoid vaccine, parenteral, other than acetone-kille d, dried 2 2018 UNK 41 [employer] (BP) complet ed typhoid vaccine, parentera l, other than acetone-k illed, dried DoD vaccinia (smallpox) vaccine 0 2018 UNK 75 (JAMAL) complet ed vaccinia (smallpox ) vaccine DoD [place] Encephalitis vaccine for intramuscular administratio n 2 2018 UNK 134 elicit Biomedical (INT) complet ed [place] Encephali tis vaccine for intramusc ular administr ation DoD [place] Encephalitis IM 2018 [id number] 134 Valneva complet ed [place] Encephali tis IM 11/11/18 Given Ambulat ory Pharmac y anthrax vaccine 2018 [id number] 24 [employer] complet ed anthrax vaccine 11/11/18 Given Ambulat ory Pharmac y anthrax vaccine 2 2018 [id number] 24 [employer] [place] (MIP) complet ed anthrax vaccine DoD [place] Encephalitis vaccine for intramuscular administratio n 1 2018 [id number] 134 elicit Biomedical (INT) complet ed [place] Encephali tis vaccine for intramusc ular administr ation DoD influenza, injectable, quadrivalent- pf 2017 [id number] 150 L[employer] ne complet ed influenza , injectabl e, quadrival ent-pf 09/22/18 Given Ambulat ory Pharmac y anthrax vaccine 2017 [id number] 24 [employer] complet ed anthrax vaccine 09/22/18 Given Ambulat ory Pharmac y anthrax vaccine 1 2017 [id number] 24 [employer] [place] ([facility]) complet ed anthrax vaccine DoD Influenza, injectable, [...] injectable, preservative free 0 2016 [id number] 140 Rubysophicine (SKB) complet ed Influenza , seasonal, injectabl e, preservat phoebe free DoD poliovirus vaccine, inactivated 2015 zzLef t Arm [id number] 10 sanofi pasteur complet ed polioviru s vaccine, inactivat ed 03/09/16 Given Ambulat ory Pharmac y hepatitis B pediatric/ado lescent 2015 zzLef t Arm [id number] 08 GlaxoSmithKli ne complet ed hepatitis B pediatric /adolesce nt 03/09/16 Given Ambulat ory Pharmac y hepatitis B vaccine, pediatric or pediatric/ado lescent dosage 1 2015 CINDI MIX [id number] 08 [facility] (SKB) complet ed hepatitis B vaccine, pediatric or pediatric /adolesce nt dosage DoD poliovirus vaccine, inactivated 1 2015 CINDI MIX [id number] 10 Sanofi Pasteur ([facility]) complet [...] purified protein derivative 2015 zzLef t Arm [id number] 96 sanofi pasteur complet ed tuberculi n purified protein derivativ e 02/03/16 Given Ambulat ory Pharmac y meningococcal oligosacchari de (MCV4O) 2015 zzLef t Arm [id number] 136 sanofi pasteur complet ed meningoco ccal oligosacc haride (MCV4O) 02/03/16 Given Ambulat ory Pharmac y adenovirus vaccine, live 2015 zzLef t Arm [id number] 143 Teva Pharmaceutica ls complet ed adenoviru s vaccine, live 02/03/16 Given Ambulat ory Pharmac y tetanus, diphtheria, acellular pertu is 2015 zzLef t Arm [id number] 115 GlaxoSmithKli ne complet ed tetanus, diphtheri a, acellular pertussis 02/03/16 Given Ambulat ory Pharmac y tuberculin skin test; purified protein derivative solution, intradermal 1 2015 Unknown, Provider [id number] Sanofi Pasteur ([facility]) complet ed tuberculi n skin test; purified protein derivativ e solution, intraderm al DoD tetanus toxoid, reduced diphtheria toxoid, and acellular pertu is vaccine, adsorbed 1 2015 Unknown, Provider [id number] [address] [place], [place] [address] (SKB) complet ed tetanus toxoid, reduced diphtheri a toxoid, and acellular pertussis vaccine, adsorbed DoD meningococcal oligosacchari de (groups A, C, Y and W-135) diphtheria toxoid conjugate vaccine (MCV4O) 1 2015 Unknown, Provider [id number] 136 Sanofi Pasteur (PMC) complet ed meningoco ccal oligosacc haride (groups A, C, Y and W-135) diphtheri a toxoid conjugate vaccine (MCV4O) DoD Adenovirus, type 4 and type 7, live, oral 1 2015 Unknown, Provider [id number] [facility] [place] (BRR) complet ed Adenoviru s, type 4 [...] Prevention' s HIV diagnostic algorithm. Refer to [facility] Lab Guide for additional information : [email or web address]/ [email or web address] x Testing performed by [...] ADM Date DC Date Status [facility] OUTPATIENT [id number] MARYSOL SALDAÑA 01/30 Released w/o Limitations [facility] [place] Alek baires([facility] Hearing Conserv ation) [facility] OUTPATIENT [id number] SUSANA CEJA 02/01 Released w/o Limitations [facility] [place] Alek baires(MCR D Optomet ry Clinic) [facility] Recruit Medical Process) OUTPATIENT [id number] INITIAL INPROCE KAMALJIT MENDOZA N 02/02 Released w/o Limitations [facility] [place] Alek baires([facility] [employer] ) [facility] [employer]) OUTPATIENT [id number] 2ND VISIT FOR INPROCE KAMALJIT MENDOZA N 03/09 Released w/o Limitations [facility] [place] Alek baires([facility] Rec[employer] Medical Process ) [facility] Weapons BAS) OUTPATIENT [id number] Notes Entered by: KAIDEN KOHLER 16 Mar 2016 0652 ------- ------- ------- ------- -- Miguel/Alejandrina9- numb left FLORENCE Jordan 03/16 Released with Work/Duty Limitations [facility] [place] Alek [facility]aires([facility] Weapons BAS) [facility] Duty Sick Call) OUTPATIENT [id number] Notes Entered by: JOSE MARTIN MONZON 24 Mar 2016 0755 ------- ------- ------- ------- -- Miguel/1048 - Luis jang (L) hand x 10 days DIVYA CASILLAS 03/24 Released w/o Limitations [facility] [place] Alek baires([facility] Duty Sick Call) [facility] neha([facility] First BN BAS) OUTPATIENT [id number] Notes Entered by: RAE CAMPOS 26 Mar 2016 0701 ------- ------- ------- ------- -- Miguel/1048- F/U LEFT HAND RAE ALEJO 03/26 Released w/o Limitations [facility] [place] Alek [facility]aires([facility] First BN BAS) [facility] First BN BAS) OUTPATIENT [id number] Notes Entered by: RAE CAMPOS 28 Mar 2016 0650 ------- ------- ------- ------- -- Miguel/1048- F/U RADIAL RAE RIVERA 03/28 Released w/o Limitations [facility] [place] Alek [facility]aires([facility] First BN BAS) [facility] neha([facility] Weapons BAS) OUTPATIENT [id number] Notes Entered by: HARSHA ALVA 03 Apr 2016 0619 ------- ------- ------- ------- -- Miguel/9 FLORENCE Paz 04/03 Released w/o Limitations [facility] [place] Alek [facility] Weapons BAS) [facility] Program) OUTPATIENT [id number] Notes Entered by: ENRIQUETA LOBATO 05 Feb 2017 1428 ------- ------- ------- ------- -- ENRIQUETA MIRAMONTES 02/05 Released w/o Limitations [facility] HC Program ) [facility] Med Readiness Cln) OUTPATIENT [id number] Notes Entered by: CRISTAL NOLAND 28 May 2017 0828 ------- ------- ------- ------- -- LCPL Course Sydneyi TERRENCE Cuevas 05/28 Released w/o Limitations [facility] Med Readine ss Cln) [facility](TP Optometry ) OUTPATIENT [id number] cpl-max ARIS Stock I 11/19 Released w/o Limitations [facility](T P Optomet ry) [facility]) OUTPATIENT [id number] ALIS PT1 BASE (MACG-3 8) WILIMA LEY 01/21 Released w/o Limitations [facility]) [facility] HC Program) OUTPATIENT [id number] Notes Entered by: YOVANI TRAN V 21 Jan 2018 0843 ------- ------- ------- ------- -- TRINITY Brothers V 01/21 Released w/o Limitations [facility] HC Program ) [facility]) OUTPATIENT [id number] PT2 ALYSON HERNANDEZ 01/23 Released w/o Limitations [facility]) [facility]) OUTPATIENT [id number] CALLY PT1 BASE (MACG-3 8) CHRIS ESPINOSA 05/30 Released w/o Limitations [facility]) [facility]) OUTPATIENT [id number] PART 2 MICHAEL MALLORY 06/23 Released w/o Limitations [facility]) Theater Facility OUTPATIENT [id number] Theater Provider 04/06 Released w/o Limitations Theater Facilit y [facility] HC Program) OUTPATIENT [id number] Notes Entered by: YOVANI TRAN V 29 Oct 2019 0827 ------- ------- ------- ------- -- term TRINITY PLASCENCIA V 10/29 Released w/o Limitations [facility]( [facility] HC Program ) [facility] Optometry Cln) OUTPATIENT [id number] Notes Entered by: RA DUDLEY BARBOSA 10 Nov 2019 1223 ------- ------- ------- ------- -- SYDNI SANDOVAL 11/10 Released w/o Limitations [facility] Optomet ry Cln) [facility] Med Readiness Cln) OUTPATIENT [id number] JUN PHYS/MA -11/02 [id number] TERESA CERVANTES 11/18 Released w/o Limitations [facility] Med Readine ss Cln) [facility] Fam Med PCMH Tm 2) TELE CONSULT [id number] Notes Entered by: TERESA CERVANTES 05 Jan 2020 1352 ------- ------- ------- ------- -- ePHA- MWCS38 TERESA CERVANTES 01/04 [facility]( [facility] Fam Med PCMH Tm 2) [facility] Sarah( Med Readiness Center) OUTPATIENT [id number] [facility] /B one bruise left knee/Smith ll DB MIX 04/06 Released with Work/Duty Limitations [facility] Sarah( Med [facility]ine [facility] Center) [facility] OUTPATIENT [id number] Notes Entered by: ARTHUR COLIN 25 Apr 2022 1611 ------- ------- ------- ------- -- Limdu screen AMY ROSS 04/25 Released w/o Limitations [facility] Sarah( GR Case Managem ent) [id number] AMDS Outpatient [id number] JORGE A HARRISON 08/21 Discharge Disposition: Home or Self Care [id number] AMDS 0035C-[id number] C [facility] [id number] ITZELMEDIN AMARTALANAZ 09/09 Discharge Disposition: Home or Self Care 0035C-N [facility] Sarah Procedures Combined list of: 1) Procedures from Department of Veterans Affairs facilities going back up to [facility] 18 months, not all VA non-surgical procedures are included; 2) All procedures from the Department of Defense facilities. Procedure Procedure Type Code Date Perfomer Comments Sourc e No data available for this section Ambulato ry Pharmacy CASE MANAGEMENT, EACH 15 MINUTES 2021 [facility] WAIVER SERVICES; NOT OTHERWISE SPECIFIED (NOS) 2021 [facility] IMMUNIZATION ADMINISTRATION (INCLUDES PERCUTANEOUS, INTRADERMAL, SUBCUTANEOUS, OR INTRAMUSCULAR INJECTIONS); EACH ADDITIONAL VACCINE (SINGLE OR COMBINATION VACCINE/TOXOID) 2015 DoD SKIN TEST; TUBERCULOSIS, INTRADERMAL 2015 [facility] PHYS/OTH QUALIFIED HEALTH WASHER ENGINEER HELPER QUALIFIED,EDUCATION ,TRAIN,LICENSURE/RE GULATION (WHEN APPLICABLE) EDUC SER RENDERED TO PATS IN A GRP SETTING (EG,,OBESIT Y,OR DIABETIC INSTRUCT) 2015 [facility] SCREENING TEST OF VISUAL ACUITY, QUANTITATIVE, BILATERAL 2015 [facility] DETERMINATION OF REFRACTIVE STATE 2019 DoD AUDIOMETRIC [...] DETERM FOR CONTRAST SENSITIV,VIS UND GLARE) 2017 [facility] AUDIOMETRIC TESTING OF GROUPS 2016 [facility] Determination Of Refractive State Determination Of Refractive State 85509 2019 [facility] SYDNI [facility] Spectacles Services Fitting Monofocal Except For Aphakia Spectacles Services Fitting Monofocal Except For Aphakia 46919 2019 [facility] Ophthalmological New Patient Start Comprehensive Care Ophthalmological New Patient Start Comprehensive Care 83706 2019 [facility] Audiometry Group Testing Audiometry Group Testing 18765 2019 TRINITY PLASCENCIA V [facility] ECG Interpretation And Report Only ECG Interpretation And Report Only [id number] 2017 MICHAEL JHA EK-LEAD EKG COMPLETED, INTERPRETED. NORMAL AXIS, NORMAL COMPLEXES HEART RHYTHM: SINUS [facility] Visual Function Screening Visual Function Screening 78396 2017 CHRIS ESPINOSA [facility] ECG Interpretation And Report Only ECG Interpretation And Report Only 63763 2017 ALYSON SNYDER [facility] Audiometry Group Testing Audiometry Group Testing 70813 2017 TRINITY PLASCENCIA V [facility] Visual Function Screening Visual Function Screening 58903 2017 WILIAM LEY Visual acuity performed using Snellen (distance)/G raham-Field (near)/Ishih christopher (color);Ster eopsis (depth perception) results written in PC Matrix. [facility] ECG Performance of Tracing Only ECG Performance of Tracing Only 08532 2017 WILIAM LEY REPORT PLACED IN PT'S MEDICAL RECORD FOR PROVIDER TO REVIEW DURING PART 2 EXAM [facility] Repair And Refitting Gla es (Not For Aphakia) Repair And Refitting Glasses (Not For Aphakia) 15468 2017 ARIS NIEVES I [facility] Audiometry Group Testing Audiometry Group Testing 63721 2016 ENRIQUETA GRECO [facility] Patient education, not otherwise cla ified, non-physician provider, group, per se ion 2016 ENRIQUETA GRECO [facility] Hepatitis B Vaccine (Active); To 11 Years Hepatitis B Vaccine (Active); [place] To 11 Years 42772 2015 CINDI MARTÍNEZ Hep B, adolescent or pediatric; Series #: 1; .5 mL; IM; Left Arm; Mfg: WITOI; Lot: [id number]. [facility] Vaccines Viral Polio, Inactivated Vaccines Viral Polio, Inactivated 43843 2015 CINDI MARTÍNEZ IPV; Series #: 1; .5 mL; IM; Left Arm; Mfg: Sanofi Pasteur; Lot: [id number]. Luis Immunization Administration By Injection, One Vaccine Immunization Administration By Injection, One Vaccine 16413 2015 CINDI MARTÍNEZ Immunization Administration By Injection, Each Additional Vaccine Immunization Administration By Injection, Each Additional Vaccine 50133 2015 CINDI MARTÍNEZ Skin Test Anergy Tuberculin Intradermal Skin Test Anergy Tuberculin Intradermal 29866 2015 CINDI MARTÍNEZ Meningococcal Conjugate Vaccine Quadrivalent Serogroups A, C, Y, W-135 2015 CINDI MARTÍNEZ Tdap Vaccine Tdap Vaccine 51280 2015 CINDI MARTÍNEZ Vaccines Adenovirus Type 4 Live, For Oral Use Vaccines Adenovirus Type 4 Live, For Oral Use 61230 2015 CINDI MARTÍNEZ Vaccines Adenovirus Type 7 Live, For Oral Use Vaccines Adenovirus Type 7 Live, For Oral Use 24769 2015 CINDI MARTÍNEZ Immunization Administration By Injection, Each Additional Vaccine Immunization Administration By Injection, Each Additional Vaccine 63969 2015 CINDI MARTÍNEZ Immunization Admin Intranasal / Oral Each Additional Vaccine Immunization Admin Intranasal / Oral Each Additional Vaccine 28001 2015 CINDI MARTÍNEZ Venipuncture Venipuncture 17589 2015 CINDI MARTÍNEZ Physician Supervised Injection Intramuscular Antibiotic Physician Supervised Injection Intramuscular Antibiotic 90660 2015 CINDI MARTÍNEZ Screening Test Of Visual Acuity, Quantitative, Bilateral Screening Test Of Visual Acuity, Quantitative, Bilateral 15355 2015 DAE ARBOLEDA [facility] Fitting Monofocal Except For Aphakia Spectacles Services Fitting Monofocal Except For Aphakia 31698 2015 DAE ARBOLEDA [facility] Physician Supervised Group Educational Services Physician Supervised Group Educational Services 03711 2015 FARAZ ESPINOSA [facility] Audiometry Group Testing Audiometry Group Testing 20853 2015 FARAZ ESPINOSA [facility] Waiver services; not otherwise specified (NOS) DB MIX [facility] Case Management, each 15 minutes AMY ROSS [facility] Social History Combined list of available smoking, tobacco, and other social history from Department of Defense and Veterans Affairs facilities. Social History Type Response Date Comment Sourc e Sex Representation Male 10/06/2020 Unknow n Organization Sexual Orientation Ambula tory Pharmacy Gender identity Ambulator y Pharmacy This section is an empty soc ial history section. [facility] Assessment and Plan Combined list of future care activities from Department of Defense and Veterans Affairs facilities (e.g., assessment and plan notes, appointments, orders, and referrals). Additional future care activities may be listed in the Plan of Care section. Result Assessment and Plan Date Source Assessment and Plan No data available for this section 12/15/2024 Ambulatory Pharmacy Functional Status Combined list of recent functional and cognitive assessments recorded at Department of Defense and Veterans Affairs (VA).VA Functional [place] Measurement (FIM) Scale: 1 = Total Assistance (Subject = 0% +), 2 = Maximal Assistance (Subject = 25% +), 3 = Moderate Assistance (Subject = 50% +), 4 = Minimal Assistance (Subject = 75% +), 5 = Supervision, 6 = Modified [place] (Device), 7 = Complete [place] (Timely, Safely). Assessment Date/Time Source Assessment Type Assessment Skill Assessment Score Assessment Details No data available for this section
== END 2024-12-15 16:02 | disposition home or self-care (01) ==
LOC: HO.HMCC 14:19
PROVIDERS: PCP Nurse Practitioner Family; Visit Provider Nurse Practitioner Family
DX: R74.8 Abnormal levels of other serum enzymes (principal); H61.21 Impacted cerumen, right ear

== ENCOUNTER → 2024-12-15 14:18 | Outpatient (BNVA) | payer OTHER, SELFPAY | PROVIDERS: PCP Nurse Practitioner Family; Visit Provider Nurse Practitioner Family | DX: R74.8 Abnormal levels of other serum enzymes (principal); H61.21 Impacted cerumen, right ear | CPT/HCPCS: 69209; 96127; 99212 ==

== ENCOUNTER 2024-12-29 10:54 | Outpatient (RCR) | payer OTHER, SELFPAY ==
--- NOTE | 2024-11-24 10:37 | MHC.PT.EP ---
[facility] [place] Office [place] Office [place] Office [address] Roz Durand [address] [phone] F: [phone] F: [phone] F: [phone] F: [phone] Physical Therapy Plan of Care Date of Evaluation: 11/24/24 Date of Surgery: NA Diagnosis: Proctalgia Fugax Anal Spasm Assessment: Marshall is 29 year old male who is referred to PT for proctalgia fugax, anal spasm . He reports of having pain in the anal region for about 4 years. Per pt his symptoms have gotten worse in intensity and duration for which the pain lasts. On PT examination he reported of having spontaneous pain in the anus radiating up to rectum and lasting for about 5 minutes at an intensity of 6/10, no pain with BM, has h/o of IBS diarrhea type, has urinary urgency, frequency, urge UI, and DANIE. He is sexually active and has no limitations. He presented with posterior chain tightness in B LE today. Unable to perform ano-rectal exam today due to time. He would benefit from skilled PT to address the aforementioned impairments and improve tolerance to functional activities. Frequency and Duration: The patient will be seen 1/week for 8 weeks Short Term Goals: 1. Ano-rectal exam will be done in 2 weeks. 2. Pt will be able to state at least 3 urge suppression techniques in 3 weeks 3. Pt will be able to drop night voiding from 2 to 1 and be able to void every 2 hours during the day in 4 weeks Key Person Goals: 1. Pt will have 50% decrease in intensity and frequency of anal pain in 5 weeks 2. Pt will deny having UUI, and DANIE in 7 weeks 3. Pt will be independent with all HEP for symptom management and maintenance after d/c in 8 weeks Treatment Plan: Modalities to reduce pain, spasms and effusion. Manual therapy to restore motion and function. Therapeutic exercise to improve strength and flexibility. Neuromuscular re-education for posture and balance. Therapeutic activities to return to functional activities of daily living. Electronically signed by: Please sign and return to therapist. Thank you for your referral.
--- NOTE | 2025-02-25 08:29 | MHC.PT.DC ---
[facility] Office [place] Office [place] Office [address] [phone] F: [phone] F: [phone] F: [phone] F: [phone] Physical Therapy Discharge Report Diagnosis: Proctalgia Fugax Anal Spasm Date of Surgery: NA Date of Evaluation: 11/24/24 Date of Discharge: 02/25/25 Treatments to Date: 6 Cancellations to Date: 0 No Shows to Date: 0 Discharge Status: Achieved Goals Improved Function Independent with HEP Discharge Summary: Marshall completed 6 PT visits. He has achieved all goals set for him and is independent with all HEP. He has had no pain for over a month. He is therefore being d/c from PT. Electronically signed by: Maria Teresa Avelar PT DPT Please sign and return to therapist. Thank you for your referral.
== END 2025-02-25 08:30 | disposition home or self-care (01) ==
LOC: HO.PT 10:54
PROVIDERS: PCP Nurse Practitioner Family; Visit Provider Internal Medicine
DX: K59.4 Anal spasm (principal)
CPT/HCPCS: 97110; 97112; 97140; 97161

== ENCOUNTER 2025-01-05 08:55 | Outpatient (REF) | payer OTHER, SELFPAY ==
--- NOTE | ~2025-01-05 | US_ITS ---
CLINICAL HISTORY: R74.8 - Abnormal levels of other serum enzymes US abdomen complete Comparison: US/SR - US ABDOMEN COMPLETE - 05/15/23 08:31 EDT Findings: The visualized pancreas is normal. The aorta and inferior vena cava are normal caliber. The liver is normal in size and echotexture. There is no intrahepatic bile duct dilatation. The common duct is 5 mm in diameter. The gallbladder is normal. There is no sonographic Gamez sign. The right kidney is 10.9 cm in length. The left kidney is 12.2 cm in length. The spleen is normal. No ascites. IMPRESSION: 1. Normal complete abdominal ultrasound. This document has been electronically signed by: Libia Almaguer MD on 01/05/2025 15:26:07
--- OUTSIDE RECORDS SUMMARY | 2025-01-05 09:32 | XMS_ITS | Continuity of Care Document ---
Author Name [facility] Organization [facility] Care Team Providers Care Director Of Claims Name Role Phone [facility] Unavailable Unavailable Allergies, Adverse Reactions, Alerts Combined list of allergies from Department of Defense and Veterans Affairs facilities. It does not include entries that were removed or entered in error. Substance Category Reaction Severity Reaction type Status Date Reported Comments Source clindamycin Propensity to adverse reactions to substance Unknown Active Unknown Organizati on Immunizations Combined list of available immunizations from the Department of Defense and Veterans Affairs facilities. Immunization Series Date Given Administered By Site Reaction Lot Number CVX Code Drug Interior Block Wirer Status Comments Source influenza, injectable, quadrivalent 2018 [id number] Seqirus complet ed influenza , injectabl e, quadrival ent 08/10/19 Given Ambulat ory Pharmac y anthrax vaccine 2018 [id number] 24 Emergent Bios[employer] complet ed anthrax vaccine 05/29/19 Given Ambulat ory Pharmac y yellow fever vaccine 2018 UNK 37 sanofi pasteur complet ed yellow fever vaccine 03/10/19 Given Ambulat ory Pharmac y [place] Encephalitis IM 2018 UNK 134 Valneva complet ed [place] Encephali tis IM 12/24/18 Given Ambulat ory Pharmac y vaccinia (smallpox) vaccine 2018 UNK 75 Sanofi Pasteur [employer] complet ed vaccinia (smallpox ) vaccine 12/24/18 Given Ambulat ory Pharmac y typhoid vaccine, parenteral 2018 UNK 41 [employer] [place] complet ed typhoid vaccine, parentera l 12/24/18 Given Ambulat ory Pharmac y anthrax vaccine 2018 UNK 24 Emer[employer] complet ed anthrax vaccine 12/24/18 Given Ambulat ory Pharmac y [place] Encephalitis IM 2018 [id number] Valneva complet ed [place] Encephali tis IM 11/11/18 Given Ambulat ory Pharmac y anthrax vaccine 2018 [id number] [employer] complet ed anthrax vaccine 2/5/19 Given Ambulat ory Pharmac y influenza, injectable, quadrivalent- pf 2017 [id number] 150 GlaxoSmithKli ne complet ed influenza , injectabl e, quadrival ent-pf 09/22/18 Given Ambulat ory Pharmac y anthrax vaccine 2017 [id number] [employer] complet ed anthrax vaccine 09/22/18 Given Ambulat ory Pharmac y hepatitis B adult vaccine 2016 UNK 43 GlaxoSmithKli ne complet ed hepatitis B adult vaccine 07/31/17 Given Ambulat ory Pharmac y influenza, injectable, quadrivalent- pf 2016 [id number] 150 GlaxoSmithKli ne complet ed influenza , injectabl e, quadrival ent-pf 07/31/17 Given Ambulat ory Pharmac y hepatitis B adult vaccine 2016 [id number] 43 GlaxoSmithKli ne complet ed hepatitis B adult vaccine 02/05/17 Given Ambulat ory Pharmac y influenza, seasonal, injectable-pf 2016 [id number] 140 GlaxoSmithKli ne complet ed influenza , seasonal, injectabl e-pf 12/10/16 Given Ambulat ory Pharmac y typhoid vaccine, parenteral 2016 [id number] sanofi pasteur complet ed typhoid vaccine, parentera l 12/10/16 Given Ambulat ory Pharmac y poliovirus vaccine, inactivated 2015 zzLef t Arm [id number] 10 sanofi pasteur complet ed polioviru s vaccine, inactivat ed 03/09/16 Given Ambulat ory Pharmac y hepatitis B pediatric/ado lescent 2015 zzLef t Arm [id number] 08 GlaxoSmithKli ne complet ed hepatitis B pediatric /adolesce nt 03/09/16 Given Ambulat ory Pharmac y tuberculin purified protein derivative 2015 zzLef t Arm [id number] 96 sanofi pasteur complet ed tuberculi n purified protein derivativ e 02/03/16 Given Ambulat ory Pharmac y meningococcal oligosacchari de (MCV4O) 2015 zzLef t Arm [id number] 136 sanofi pasteur complet ed meningoco ccal oligosacc haride (MCV4O) 02/03/16 Given Ambulat ory Pharmac y adenovirus vaccine, live 2015 zzLef t Arm [id number] 143 Teva Pharmaceut[employer] ls complet ed adenoviru s vaccine, live 02/03/16 Given Ambulat ory Pharmac y tetanus, diphtheria, acellular pertu is 2015 Alphonso merchant Arm [id number] 115 GlaxoSmithKli ne complet ed tetanus, diphtheri a, acellular pertussis 02/03/16 Given Ambulat ory Pharmac y Results Combined list of recent chemistry, hematology [...] Prevention' s HIV diagnostic algorithm. Refer to [facility] Lab Guide for additional information : [email or web address] x Testing performed by [id number] [employer] EP[facility] Miscellan eous Sendouts Repository Sample Received ( 4 1:55 PM) 08/19 N [address] [facility] EP[facility] Encounters Combined list of: 1) Encounters from Department of Veterans Affairs facilities going backup to the last 18 months, not all [place] inpatient encounters are included; 2) Encounters from the Department of Defense facilities going backup to 280 months. Location Location Details Encounter Type Encounter Number Reason For Visit Attending Provider ADM Date DC Date Status Disposition Source [id number] [facility] Outpatient [id number] JORGE A HARRISON 08/21 Discharge Disposition: Home or Self Care [id number] AMDS [id number] [id number] ITMELISAMEDIAmy AMMARIONELICIA 09/09 Discharge Disposition: Home or Self Care [id number] [facility] [place] Procedures Combined list of: 1) Procedures from Department of Veterans Affairs facilities going back up to thelast 18 months, not all [place] non-surgical procedures are included; 2) All procedures from the Department of [facility] facilities. Procedure Procedure Type Code Date Perfomer Comments Sourc e No data available for this section Ambulatory P harmacy Social History Combined list of available smoking, tobacco, and other social history from Department of Defense and Veterans Affairs facilities. Social History Type Response Date Comment Sourc e Sex Representation Male (finding) 10/06/2020 Un known Organization Sexual Orientation Ambula tory Pharmacy Gender identity Ambulator y Pharmacy Assessment and Plan Combined list of future care activities from Department of [facility] and [facility] facilities (e.g., assessment and plan notes, appointments, orders, and referrals). Additional future care activities may be listed in the Plan of Care section. Result Assessment and Plan Date Source Assessment and Plan No data available for this section 01/05/2025 Ambulatory Pharmacy Functional Status Combined list of recent functional and cognitive assessments recorded at [facility] of Defense and [facility] ([place] Functional [place] Measurement (FIM) Scale: 1 = Total Assistance (Subject = 0% +), 2 = Maximal Assistance (Subject = 25% +), 3 = Moderate Assistance (Subject = 50% +), 4 = Minimal Assistance (Subject = 75% +), 5 = Supervision, 6 = Modified [place] (Device), 7 = Complete [place] (Timely, Safely). Assessment Date/Time Source Assessment Type Assessment Skill Assessment Score Assessment Details No data available for this section
== END 2025-01-05 08:56 | disposition home or self-care (01) ==
LOC: HO.HMGCX 08:55
PROVIDERS: PCP Nurse Practitioner Family; Visit Provider Nurse Practitioner Family
DX: R74.8 Abnormal levels of other serum enzymes (principal)
CPT/HCPCS: 76700

== ENCOUNTER → 2025-01-05 09:01 | Outpatient (BNV) | payer OTHER, SELFPAY | PROVIDERS: PCP Nurse Practitioner Family; Visit Provider Radiology Diagnostic Radiology | DX: R74.8 Abnormal levels of other serum enzymes (principal) | CPT/HCPCS: 76700 ==

== ENCOUNTER 2025-02-15 08:13 | Outpatient (REF) | payer OTHER, SELFPAY ==
--- OUTSIDE RECORDS SUMMARY | 2025-02-15 08:16 | XMS_ITS | Continuity of Care Document ---
Author Name [facility] Organization [facility] Care Team Providers Care Comic Book Artist Name Role Phone [facility] Unavailable Unavailable Problems Combined list of problems from Department of Defense and Veterans Affairs facilities. It does not include entries that were removed or entered in error. Problem Status Onset Date Problem Type Date of Resolution Comments Source Myopia, bilateral Active 11/10/2019 Condition D oD Encounter for examination of eyes and vision without abnormal findings Active 11/10/2019 Condition DoD CONTACT DERMATITIS DUE TO DETERGENTS Inactive 04/07/2019 Condition DoD Encounter for examination [...] ORAL, AUROBINDO PHARM, 500 ea. BOTTLE Active [id number] 2023 30 Pharmac y Data Transac tion Service Facilit y PANTOPRAZOL E SODIUM (PANTOPRAZO LE SODIUM), 40 MG, TABLET DR, ORAL, MYLAN, 90 ea. BOTTLE Active [id number] 2023 60 Pharmac y Data Transac tion Service Facilit y PANTOPRAZOL E SODIUM (PANTOPRAZO LE SODIUM), 40 MG, TABLET DR ORAL, MYLAN, 90 ea. BOTTLE Active [id number] 2023 90 Pharmac y Data Transac tion Service Facilit y TIZANIDINE HCL (TIZANIDINE HCL), 4MG, TABLET, ORAL, 'S LAB, 150 ea. BOTTLE Active [id number] 2023 5 Pharmac y Data Transac tion Service Facilit y XIFAXAN (RIFAXIMIN) , 550 MG, TABLET, ORAL, SALIX PHARMACEU, 60 ea. BOTTLE Active [id number] 2023 42 Pharmac y Data Transac tion Service Facilit y Allergies, Adverse Reactions, Alerts Combined list of allergies from Department of Defense and Veterans Affairs facilities. It does not include entries that were removed or entered in error. Substance Category Reaction Severity Reaction type Status Date Reported Comments Source CLINDAMYCIN Drug allergy (disorder) Unknown active 6 [facility] clindamycin Propensity to adverse reactions to substance Unknown Active Unknown Organizati on Immunizations Combined list of available immunizations from the Department of Defense and Veterans Affairs facilities. Immunization Series Date Given Administered By Site Reaction Lot Number CVX Code Drug Acquisitions Editor Status Comments Source SARS-COV-2 (COVID-19) vaccine, mRNA, spike protein, LNP, preservative free, 100 mcg or 50 mcg dose 2 2020 [id number] Amedrixa [employer] (MOD) complet ed SARS-COV- 2 (COVID-19 ) vaccine, mRNA, spike protein, LNP, preservat phoebe free, 100 mcg or 50 mcg dose DoD SARS-COV-2 (COVID-19) vaccine, mRNA, spike protein, LNP, preservative free, 100 mcg or 50 mcg dose 1 2020 [id number] 207 Amedrixa [employer] (MOD) complet ed SARS-COV- 2 (COVID-19 ) vaccine, mRNA, spike protein, LNP, preservat phoebe free, 100 mcg or 50 mcg dose DoD influenza, injectable, quadrivalent 2018 [id number] 158 Seqirus complet ed influenza , injectabl e, quadrival ent 08/10/19 Given Ambulat ory Pharmac y influenza, injectable, quadrivalent, contains preservative 0 2018 [id number] 158 Seqirus (SEQ) complet ed influenza , injectabl e, quadrival ent, contains preservat phoebe DoD anthrax vaccine 2018 UNK 24 Emergent Biosolutions complet ed anthrax vaccine 05/29/19 Given Ambulat ory Pharmac y anthrax vaccine 4 2018 UNK 24 [employer] [place] (MIP) complet ed anthrax vaccine DoD yellow fever vaccine 2018 UNK 37 sanofi pasteur complet ed yellow fever vaccine 03/10/19 Given Ambulat ory Pharmac y yellow fever vaccine 0 2018 UNK 37 Sanofi Pasteur (PMC) complet ed yellow fever vaccine DoD [place] Encephalitis IM 2018 UNK 134 Valneva complet ed [place] Encephali tis IM 12/24/18 Given Ambulat ory Pharmac y vaccinia (smallpox) vaccine 2018 UNK 75 Sanofi Pasteur Incorporated complet ed vaccinia (smallpox ) vaccine 12/24/18 Given Ambulat ory Pharmac y typhoid vaccine, inactivated 2018 UNK 101 [place] [employer] [place] complet ed typhoid vaccine, inactivat ed 12/24/18 Given Ambulat ory Pharmac y anthrax vaccine 2018 UNK 24 Emergent Biosolutions complet ed anthrax vaccine 12/24/18 Given Ambulat ory Pharmac y anthrax vaccine 3 2018 UNK 24 [employer] [place] (MIP) complet ed anthrax vaccine DoD typhoid vaccine, parenteral, other than acetone-kille d, dried 2 2018 UNK 41 Leads Direct (BPC) complet ed typhoid vaccine, parentera l, other than acetone-k illed, dried DoD vaccinia (smallpox) vaccine 0 2018 UNK 75 (JAMAL) complet ed vaccinia (smallpox ) vaccine DoD [place]ian Encephalitis vaccine for intramuscular administratio n 2 2018 UNK 134 [employer] (INT) complet ed [place]ian Encephali tis vaccine for intramusc ular administr ation DoD [place] Encephalitis IM 2018 [id number] 134 Valneva complet ed [place] Encephali tis IM 11/11/18 Given Ambulat ory Pharmac y anthrax vaccine 2018 [id number] 24 Emer[employer] complet ed anthrax vaccine 11/11/18 Given Ambulat ory Pharmac y anthrax vaccine 2 2018 [id number] 24 [employer] [place] (MIP) complet ed anthrax vaccine DoD [place]ian Encephalitis vaccine for intramuscular administratio n 1 2018 [id number] 134 [employer] (INT) complet ed [place] Encephali tis vaccine for intramusc ular administr ation DoD influenza, injectable, quadrivalent- pf 2017 [id number] 150 [employer] ne complet ed influenza , injectabl e, quadrival ent-pf 09/22/18 Given Ambulat ory Pharmac y anthrax vaccine 2017 [id number] 24 Emer[employer] complet ed anthrax vaccine 09/22/18 Given Ambulat ory Pharmac y anthrax vaccine 1 2017 [id number] 24 [employer] [place] ([facility]) complet ed anthrax vaccine DoD Influenza, [...] Given Ambulat ory Pharmac y typhoid vaccine, inactivated 2016 [id number] 101 sanofi pasteur complet ed typhoid vaccine, inactivat ed 12/10/16 Given Ambulat ory Pharmac y varicella virus vaccine 0 2016 21 () Not Given varicella virus vaccine DoD typhoid vaccine, parenteral, other than acetone-kille d, dried 1 2016 [id number] 41 Sanofi Pasteur ([facility]) complet ed typhoid vaccine, parentera l, other than acetone-k illed, dried DoD Influenza, seasonal, injectable, preservative free 0 2016 [id number] 140 [employer] (SKB) complet ed Influenza , seasonal, injectabl e, preservat phoebe free DoD poliovirus vaccine, inactivated 2015 zzLef t Arm [id number] 10 sanofi pasteur complet ed polioviru s vaccine, inactivat ed 03/09/16 Given Ambulat ory Pharmac y hepatitis B pediatric/ado lescent 2015 zzLef t Arm [id number] 08 GlaxoSmithKli ne complet ed hepatitis B pediatric /adolesce nt 03/09/16 Given Ambulat ory Pharmac y hepatitis B vaccine, pediatric or pediatric/ado lescent dosage 1 2015 CINDI MIX [id number] 08 [facility] (SKB) complet ed hepatitis B vaccine, pediatric or pediatric /adolesce nt dosage DoD poliovirus vaccine, inactivated 1 2015 CINDI MIX R0634-5 10 Sanofi Pasteur ([facility]) complet ed polioviru s vaccine, inactivat ed DoD hepatitis A vaccine, adult dosage 0 2015 52 () Not Given hepatitis A vaccine, adult dosage DoD measles and rubella virus vaccine 0 2015 04 () Not Given measles and rubella virus vaccine DoD varicella virus vaccine 0 2015 21 () Not Given varicella virus vaccine DoD tuberculin purified protein derivative 2015 zzLef t Arm [id number] 96 sanofi pasteur complet ed tuberculi n purified protein derivativ e 02/03/16 Given Ambulat ory Pharmac y meningococcal oligosacchari de (MCV4O) 2015 zzLef t Arm [id number] 136 sanofi pasteur complet ed meningoco ccal oligosacc haride (MCV4O) 02/03/16 Given Ambulat ory Pharmac y adenovirus vaccine, live 2015 zzLef t Arm [id number] 143 Teva Pharmaceutica ls complet ed adenoviru s vaccine, live 02/03/16 Given Ambulat ory Pharmac y tetanus, diphtheria, acellular pertu is 2015 zzLef t Arm [id number] 115 GlaxoSmithKli ne complet ed tetanus, diphtheri a, acellular pertussis 02/03/16 Given Ambulat ory Pharmac y tuberculin skin test; purified protein derivative solution, intradermal 1 2015 Unknown, Provider [id number] 96 Sanofi Pasteur ([facility]) complet ed tuberculi n skin test; purified protein derivativ e solution, intraderm al DoD tetanus toxoid, reduced diphtheria toxoid, and acellular pertu is vaccine, adsorbed 1 2015 Unknown, Provider [id number] [address] [place], [place] [address] (SKB) complet ed tetanus toxoid, reduced diphtheri a toxoid, and acellular pertussis vaccine, adsorbed DoD meningococcal oligosacchari de (groups A, C, Y and W-135) diphtheria toxoid conjugate vaccine (MCV4O) 1 2015 Unknown, Provider [id number] 136 Sanofi Pasteur (PMC) complet ed meningoco ccal oligosacc haride (groups A, C, Y and W-135) diphtheri a toxoid conjugate vaccine (MCV4O) DoD Adenovirus, type 4 and type 7, live, oral 1 2015 Unknown, Provider [id number] 4 [facility] Ovuline (BRR) complet ed Adenoviru s, type 4 [...] Prevention' s HIV diagnostic algorithm. Refer to [facility] Lab Guide for additional information : [email or web address] [email or web address].[email or web address]/ [email or web address]/[email or web address]/EPIL [email or web address]/doe [email or web address].asp x Testing performed by [...] ADM Date DC Date Status [facility]) OUTPATIENT [id number] MARYSOL SALDAÑA 01/30 Released w/o Limitations [facility] Alek baires([facility] D Hearing Conserv ation) [facility] OUTPATIENT [id number] SUSANA CEJA 02/01 Released w/o Limitations [facility] Alek baires(MCR D Optomet ry Clinic) [facility] Recruit Medical Process) OUTPATIENT [id number] INITIAL INPROCE KAMALJIT MENDOZA N 02/02 Released w/o Limitations [facility] Alek baires([facility] D Recruit Medical Process ) [facility] OUTPATIENT [id number] 2ND VISIT FOR INPROCE KAMALJIT MENDOZA N 03/09 Released w/o Limitations [facility] Alek baires([facility] D Recruit Medical Process ) [facility] Weapons BAS) OUTPATIENT [id number] Notes Entered by: KAIDEN KOHLER 16 Mar 2016 0652 ------- ------- ------- ------- -- Miguel/Alejandrina9- numb left FLORENCE Jordan 03/16 Released with Work/Duty Limitations [facility] Alek baires([facility] D Weapons BAS) [facility] OUTPATIENT [id number] Notes Entered by: JOSE MARTIN MONZON 24 Mar 2016 0755 ------- ------- ------- ------- -- Miguel/1048 - Luis jang (L) hand x 10 days DIVYA CASILLAS 03/24 Released w/o Limitations [facility] Alek baires([facility] D Duty Sick Call) [facility] neha([facility] First BN BAS) OUTPATIENT [id number] Notes Entered by: RAE CAMPOS 26 Mar 2016 0701 ------- ------- ------- ------- -- Miguel/1048- F/U LEFT HAND RAE ALEJO 03/26 Released w/o Limitations [facility] Alek baires([facility] D First BN BAS) [facility] First BN BAS) OUTPATIENT [id number] Notes Entered by: RAE CAMPOS 28 Mar 2016 0650 ------- ------- ------- ------- -- Miguel/1048- F/U RADIAL RAE RIVERA 03/28 Released w/o Limitations [facility] Alek baires([facility] D First BN BAS) [facility] neha[facility] Weapons BAS) OUTPATIENT [id number] Notes Entered by: HARSHA ALVA 03 Apr 2016 0619 ------- ------- ------- ------- -- Miguel/9 FLORENCE Paz 04/03 Released w/o Limitations [facility] Alek baires([facility] D Weapons BAS) [facility] Program) OUTPATIENT [id number] Notes Entered by: ENRIQUETA LOBATO 05 Feb 2017 1428 ------- ------- ------- ------- -- ENRIQUETA MIRAMONTES 02/05 Released w/o Limitations [facility] HC Program ) [facility] Med Readiness Cln) OUTPATIENT [id number] Notes Entered by: CRISTAL NOLAND 28 May 2017 0828 ------- ------- ------- ------- -- LCPL Course Sydneyi TERRENCE Cuevas 05/28 Released w/o Limitations [facility] Med Readine ss Cln) [facility](TP Optometry ) OUTPATIENT [id number] cpl-max ARIS Stock I 11/19 Released w/o Limitations [facility](T P Optomet ry) [facility]) OUTPATIENT [id number] ALIS PT1 BASE (MACG-3 8) WILIAM LEY 01/21 Released w/o Limitations [facility]) [facility] HC Program) OUTPATIENT [id number] Notes Entered by: YOVANI TRAN V 21 Jan 2018 0843 ------- ------- ------- ------- -- TRINITY Brothers V 01/21 Released w/o Limitations [facility] HC Program ) [facility]) OUTPATIENT [id number] PT2 ALYSON HERNANDEZ 01/23 Released w/o Limitations [facility]) [facility]) OUTPATIENT [id number] CALLY PT1 BASE (MACG-3 8) CHRIS ESPINOSA 05/30 Released w/o Limitations [facility]) [facility]) OUTPATIENT [id number] PART 2 MICHAEL MALLORY 06/23 Released w/o Limitations [facility]) Theater Facility OUTPATIENT [id number] Theater Provider 04/06 Released w/o Limitations Theater Facilit y [facility] HC Program) OUTPATIENT [id number] Notes Entered by: YOVANI TRAN V 29 Oct 2019 0827 ------- ------- ------- ------- -- term TRINITY PLASCENCIA V 10/29 Released w/o Limitations [facility]( [facility] HC Program ) [facility] Optometry Cln) OUTPATIENT [id number] Notes Entered by: RA DUDLEY BARBOSA 10 Nov 2019 1223 ------- ------- ------- ------- -- SYDNI SANDOVAL 11/10 Released w/o Limitations [facility] Optomet ry Cln) [facility] Med Readiness Cln) OUTPATIENT [id number] JUN PHYS/MA -11/02 [id number] TERESA CERVANTES 11/18 Released w/o Limitations [facility] Med Readine ss Cln) [facility] Fam Med [facility] Tm 2) TELE CONSULT [id number] Notes Entered by: TERESA CERVANTES 05 Jan 2020 1352 ------- ------- ------- ------- -- ePHA- [id number] TERESA CERVANTES 01/04 [facility]( [facility] Fam Med PCMH Tm 2) [facility] Sarah( Med Readiness Center) OUTPATIENT [id number] [facility] /B one bruise left knee/Smith ll DB MIX 04/06 Released with Work/Duty Limitations [facility] Sarah( Med Readine ss Center) [facility] [place]( [facility] t) OUTPATIENT [id number] Notes Entered by: ARTHUR COLIN 25 Apr 2022 1611 ------- ------- ------- ------- -- Limdu screen AMY ROSS 04/25 Released w/o Limitations [facility] [place]( GR Case Managem ent) [id number] AMDS Outpatient [id number] JORGE A HARRISON 08/21 Discharge Disposition: Home or Self Care [id number] AMDS [id number] C [facility] [id number] ITZELMEDINeha AMARTELICIA 09/09 Discharge Disposition: Home or Self Care 0035C-[id number] [facility] [place] Procedures Combined list of: 1) Procedures from Department of Veterans Affairs facilities going back up to theut health tylert 18 months, not all VA non-surgical procedures are included; 2) All procedures from the Department of Defense facilities. Procedure Procedure Type Code Date Perfomer Comments [facility] e Determination Of Refractive State Determination Of Refractive State 56138 2019 [facility] Spectacles Services Fitting Monofocals (Not For Aphakia) [employer] Fitting Monofocals (Not For Aphakia) 25934 2019 [facility] Ophthalmological New Patient Start Comprehensive Care Ophthalmological New Patient Start Comprehensive Care 93563 2019 [facility] Audiometry Group Testing Audiometry Group Testing 48368 2019 TRINITY PLASCENCIA V [facility] ECG Interpretation And Report Only ECG Interpretation And Report Only 22531 2017 MICHAEL JHA EK-LEAD EKG COMPLETED, INTERPRETED. NORMAL AXIS, NORMAL COMPLEXES HEART RHYTHM: SINUS [facility] Visual Function Screening Visual Function Screening 75666 2017 CHRIS ESPINOSA [facility] ECG Interpretation And Report Only ECG Interpretation And Report Only 97359 2017 ALYSON SNYDER [facility] Audiometry Group Testing Audiometry Group Testing 60299 2017 TRINITY PLASCENCIA V [facility] Visual Function Screening Visual Function Screening 17751 2017 WILIAM LEY Visual acuity performed using Snellen (distance)/G raham-Field (near)/Ishih christopher (color);Ster eopsis (depth perception) results written in PC Matrix. [facility] ECG Performance of Tracing Only ECG Performance of Tracing Only 51480 2017 WILIAM LEY REPORT PLACED IN PT'S MEDICAL RECORD FOR PROVIDER TO REVIEW DURING PART 2 EXAM [facility] Repair And Refitting Gla es (Not For Aphakia) Repair And Refitting Glasses (Not For Aphakia) 74544 2017 ARIS NIEVES I [facility] Audiometry Group Testing Audiometry Group Testing 27286 2016 ENRIQUETA GRECO Patient education, not otherwise cla ified, non-physician provider, group, per se ion 2016 ENRIQUETA GRECO Hepatitis B Vaccine (Active); [place] To 11 Years Hepatitis B Vaccine (Active); [place] To 11 Years 94619 2015 CINDI MARTÍNEZ Hep B, adolescent or pediatric; Series #: 1; .5 mL; IM; Left Arm; Mfg: OneWheel; Lot: [id number]. [facility] Vaccines Viral Polio, Inactivated (Salk) Vaccines Viral Polio, Inactivated (Salk) 76608 2015 CINDI MARTÍNEZ IPV; Series #: 1; .5 mL; IM; Left Arm; Mfg: Sanofi Pasteur; Lot: [id number]. [facility] Immunization Administration One Vaccine Immunization Administration One Vaccine 25436 2015 CINDI MARTÍNEZ [facility] Immunization Administration Each Additional Vaccine Immunization Administration Each Additional Vaccine [id number] CINDI MARTÍNEZ Skin Test Anergy Tuberculin Intradermal Skin Test Anergy Tuberculin Intradermal 95128 2015 CINDI MARTÍNEZ Tdap Vaccine Tdap Vaccine 45998 2015 CINDI MARTÍNEZ Vaccines Adenovirus Type 4 Live, For Oral Use Vaccines Adenovirus Type 4 Live, For Oral Use 83047 2015 CINDI MARTÍNEZ Vaccines Adenovirus Type 7 Live, For Oral Use Vaccines Adenovirus Type 7 Live, For Oral Use [id number] CINDI MARTÍNEZ [facility] Immunization Administration Each Additional Vaccine Immunization Administration Each Additional Vaccine 09717 2015 CINDI MARTÍNEZ Immunization Admin Intranasal / Oral Each Additional Vaccine Immunization Admin Intranasal / Oral Each Additional Vaccine 52682 2015 CINDI MARTÍNEZ [facility] Venipuncture Venipuncture [address] Supervised Injection Intramuscular Antibiotic Supervised Injection Intramuscular Antibiotic 73895 2015 CINDI MARTÍNEZ [facility] Screening Test Of Visual Acuity, Quantitative, Bilateral Screening Test Of Visual Acuity, Quantitative, Bilateral 49446 2015 DAE ARBOLEDA [employer] [facility] Fitting Monofocals (Not For Aphakia) [facility] Fitting Monofocals (Not For Aphakia) [address]Supervised Group Educational Services -Supervised Group Educational Services 70501 2015 FARAZ ESPINOSA [facility] Audiometry Group Testing Audiometry Group Testing 48948 2015 FARAZ ESPINOSA [facility] Waiver services; not otherwise specified (NOS) DB MIX [facility] Case Management, each 15 minutes AMY ROSS [facility] CASE MANAGEMENT, EACH 15 MINUTES 2021 [facility] WAIVER SERVICES; NOT OTHERWISE SPECIFIED (NOS) 2021 [facility] IMMUNIZATION ADMINISTRATION (INCLUDES PERCUTANEOUS, INTRADERMAL, SUBCUTANEOUS, OR INTRAMUSCULAR INJECTIONS); EACH ADDITIONAL VACCINE (SINGLE OR COMBINATION VACCINE/TOXOID) 2015 [facility] SKIN TEST; TUBERCULOSIS, INTRADERMAL 2015 [facility] PHYS/OTH QUALIFIED HEALTH EDUCATION RESEARCH ANALYST QUALIFIED,EDUCATION ,TRAIN,LICENSURE/RE GULATION (WHEN APPLICABLE) EDUC SER RENDERED TO PATS IN A GRP SETTING (EG,,OBESIT Y,OR DIABETIC INSTRUCT) 2015 [facility] SCREENING TEST OF VISUAL ACUITY, QUANTITATIVE, BILATERAL 2015 [facility] DETERMINATION OF REFRACTIVE STATE 2019 [facility] AUDIOMETRIC TESTING OF GROUPS 2019 [facility] ELECTROCARDIOGRAM, ROUTINE ECG WITH AT LEAST 12 LEADS; INTERPRETATION AND REPORT ONLY 2017 [facility] VIS FUNCT SCREEN,AUTOMAT/SEMI -AUTOMAT BILAT QUANT DETERM VISUAL ACUITY,OCULAR ALIGN,COLOR VISION,PSEUDOISOCHR OMAT PLATES,& FIELD VIS (MAY INC ALL/SOME SCRN DETERM FOR CONTRAST SENSITIV,VIS UND GLARE) 2017 [facility] ELECTROCARDIOGRAM, ROUTINE ECG WITH AT LEAST 12 LEADS; INTERPRETATION AND REPORT ONLY 2017 [facility] AUDIOMETRIC TESTING OF GROUPS 2017 DoD VIS FUNCT SCREEN,AUTOMAT/SEMI -AUTOMAT BILAT QUANT DETERM VISUAL ACUITY,OCULAR ALIGN,COLOR VISION,PSEUDOISOCHR OMAT PLATES,& FIELD VIS (MAY INC ALL/SOME SCRN DETERM FOR CONTRAST SENSITIV,VIS UND GLARE) 2017 [facility] AUDIOMETRIC TESTING OF GROUPS 2016 [facility] No data available for this section Ambulato ry Pharmacy Social History Combined list of available smoking, tobacco, and other social history from Department of Defense and Veterans Affairs facilities. Social History Type Response Date Comment Sourc e Sex Representation Male (finding) 10/06/2020 Un known Organization This section is an empty social history section. DoD Sexual Orientation Ambula tory Pharmacy Gender identity [...] Plan No data available for this section 02/15/2025 Ambulatory Pharmacy Functional Status Combined list of recent functional and cognitive assessments recorded at Department of Defense and Veterans Affairs (VA).VA Functional Tillman Measurement (FIM) Scale: 1 = Total Assistance (Subject = 0% +), 2 = Maximal Assistance (Subject = 25% +), 3 = Moderate Assistance (Subject = 50% +), 4 = Minimal Assistance (Subject = 75% +), 5 = Supervision, 6 = Modified Tillman (Device), 7 = Complete Tillman (Timely, Safely). Assessment Date/Time Source Assessment Type Assessment Skill Assessment Score Assessment Details No data available for this section
[2025-02-15 10:46] LABS: Alanine Aminotransferase 28 U/L (0-40); Albumin Level 4.6 g/dL (3.5-5.0); Alkaline Phosphatase 74 U/L (39-117); Anion Gap 13 (12-20); Aspartate Amino Transferase 37 U/L (5-37); Bilirubin Total 0.4 mg/dL (0.0-1.0); Blood Urea Nitrogen 13 mg/dL (9-16); Calcium 9.3 mg/dL (8.4-10.2); Carbon Dioxide 29 mmol/L (22-29); Chloride 102 mmol/L (96-108); Estimated Glomerular Filt Rate > 60; Glucose Random 94 mg/dL (60-115); Sodium 140 mmol/L (135-145); Total Protein 7.8 g/dL (6.5-8.0)
[2025-02-15 10:55] LABS: HBS Num1 > 1000.00 mIU/mL (0-7.99); HBc Num1 0.11 S/CO (0.00-0.79); HBsAGNum1 0.33 S/CO (0.00-0.99); Hepatitis A Antibody IgM 0.26 Index (0-0.79); Hepatitis B Core Antibody Nonreactive (Nonreactive); Hepatitis B Surface Antigen Negative (Negative); ~HepC Num1 0.11 S/CO (0.00-0.79); ~Hepatitis A Antibody IgM Nonreactive (Nonreactive); ~Hepatitis B Surface Antibody REACTIVE (Nonreactive); ~Hepatitis C Antibody Nonreactive (Nonreactive)
== END 2025-02-15 08:14 | disposition home or self-care (01) ==
LOC: HO.HMGCLDS 08:13
PROVIDERS: PCP Nurse Practitioner Family; Visit Provider Nurse Practitioner Family
DX: R74.8 Abnormal levels of other serum enzymes (principal)
CPT/HCPCS: 36415; 80053; 86704; 86706; 86709; 86803; 87340

== ENCOUNTER → 2025-04-15 08:46 | Outpatient (AMB) | payer OTHER, SELFPAY ==
--- NOTE | 2025-04-15 08:47 | A.OFFVIS_ITS ---
Intake Visit Reasons: f/u Intake Note: Marshall presents as a telehealth today. CC: noticed that when he eats seeds that he will have a flare up and it was very bad. He states that he will have diarrhea and constipation flare ups. 3D Designer Required: No Allergies clindamycin Allergy (Mild, Verified 12/15/24 16:25) Hives HPI Comments Details: 29 y.o M with PMH of IBS who is here as a follow up. [place] [facility] [place]. Reports having chronic diarrhea for almost all of his life. Dx with IBS. EGD/colo 11/2023 neg for small bowel malabsorption or colitis. Used to manage this with imodium but would frequently get severe constipation after taking just 2-3 doses so stopped. No fiber supplementaion. Main CC is rectal discomfort which has random onset ongoing x 1 year. Possibly more so with lifting motions. Pain is characterized stabbing pain as and lasts from a few seconds to a few minutes. No relation with defecation. No foreign body insertion. Doesnt lift heavy weights. Doesnt keep anything in pants' backpocket. 04/15/25: Here as video televisit. Had pelvic floor PT and had good response but after he got discharged he stopped doing those exercises. Since then the rectal pressure and pain has returned. Additionally, continues to notice intermittent diarrhea, but admits that this is almost always in the setting of dietary indiscretion. Certain foods bother him more such as eggplant or tomatoes. Patient is in the , and is being stationed to [place] later this month. [facility] Medical History IBS (irritable bowel syndrome) Surgical History H/O vasectomy Hx of colonoscopy History of esophagogastroduodenoscopy (EGD) Family History Father Substance use disorder Crohn's colitis Paternal Grandfather Substance use disorder Brother Substance use disorder Social History Housing: House Alcohol intake: current Alcohol intake frequency: 0-2 drinks per day Patient Tobacco Use Status: Former Tobacco user Years Smoked: 3 years e-Cigarette/Vaping Use: Never Used service: Yes Current occupational status: employed Current occupation: [employer] Current occupational exposures/hazards: Yes Cognitive needs: No Hearing needs: No Vision needs: Yes Review of Systems Const All systems reviewed & are unremarkable except as noted in HPI and below Physical Exam Vital Signs: Video visit: No acute distress No icterus noted No facial asymmetry Speaking in full sentences Telehealth Telehealth Telehealth Platform: Boracci Location of provider rendering services: practice address Location of patient: address on file Patient Identification confirmed using: Name, : Yes Telehealth method: video Patient verbally consented to treatment: Yes Patient verbally consented to billing insurance company: Yes Patient informed of any privacy concerns related to visit: Yes Minutes spent on Phone/Video with Pt.: 12 Assessment & Plan Assessment & Plan (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 Rectal pain Likely secondary to proctalgia fugax. Had good response to pelvic floor physical therapy while he was actively the week it. Pain and pressure have returned has of last month. Plan: - he was reminded that he is to continue those exercises advised by the PT. - he should continue pelvic floor therapy at home as it can take to 3-6 months for complete effect 2. IBS D Sx burden manageable as long as he follows low FODMAP diet. Reviewed with the patient that on days that he is unable to adhere to a low FODMAP, should just be aware that he will have abdominal cramping and diarrhea. Can take Imodium to mitigate, if prefers to not avoid certain foods. He was advised to keep his portal access, so he can access his medical records in the future if needed. Coding Level of Care Code Tele Est Pt Level 3 (07867) Diagnoses Proctalgia fugax K59.4 Irritable bowel syndrome with diarrhea K58.0
--- OUTSIDE RECORDS SUMMARY | 2025-04-15 08:59 | XMS_ITS | Continuity of Care Document ---
Author Name [facility] Organization [facility] Care Team Providers Care Sap Trainer Name Role Phone [facility] Unavailable Unavailable Problems Combined list of problems from [facility] and [facility] facilities. It does not include entries that were removed or entered in error. Problem Status Onset Date Problem Type Date of Resolution Comments Source Administrative reason for encounter Active 03/16/2025 Diagnosis 003 -Critical access hospital Medications Combined list of outpatient medications from [facility] and [facility] facilities.Medications provided include 1) outpatient medications from the last 15 months, and 2) patient-reported medications. Medication Details Route Status Patient Instructions Prescription Expires Prescription Number Last Dispense Date Ordering Provider Order Date Order Qty Source lamoTRIgine Oral, 0 total refill(s ), Maintena nce Oral (given by mouth) Ordered 2024 0035C[facility] pantoprazol e 40 mg oral delayed release tablet 90 EA, 0 Refill(s ), TAKE 1 TABLET BY MOUTH DAILY, 0 total refill(s ), Soft Stop Ordered 20245C-N [facility] Allergies, Adverse Reactions, Alerts Combined list of allergies from [facility] and [facility] facilities. It does not include entries that were removed or entered in error. Substance Category Reaction Severity Reaction type Status Date Reported Comments Source clindamycin Propensity to adverse reactions to substance Unknown Active Unknown Organizati on Immunizations Combined list of available immunizations from the Department [facility] and [facility] facilities. Immunization Series Date Given Administered By Site Reaction Lot Number CVX Code Drug Informatics Educator Status Comments Source influenza, injectable, quadrivalent 2018 [id number] Seqirus complet ed influenza , injectabl e, quadrival ent 08/10/19 Given Ambulat ory Pharmac y anthrax vaccine 2018 [id number] 24 Emergent Biosolutions complet ed anthrax vaccine 05/29/19 Given Ambulat ory Pharmac y yellow fever vaccine 2018 UNK 37 sanofi pasteur complet ed yellow fever vaccine 03/10/19 Given Ambulat ory Pharmac y Pakistani Encephalitis IM 2018 UNK 134 Valneva complet ed Pakistani Encephali tis IM 12/24/18 Given Ambulat ory Pharmac y vaccinia (smallpox) vaccine 2018 UNK 75 Sanofi Pasteur Incorporated complet ed vaccinia (smallpox ) vaccine 12/24/18 Given Ambulat ory Pharmac y typhoid vaccine, inactivated 2018 UNK 101 V[employer] [place] complet ed typhoid vaccine, inactivat ed 12/24/18 Given Ambulat ory Pharmac y anthrax vaccine 2018 UNK 24 Emergent Biosolutions complet ed anthrax vaccine 12/24/18 Given Ambulat ory Pharmac y Pakistani Encephalitis IM 2018 [id number] 134 Valneva complet ed Pakistani Encephali tis IM 11/11/18 Given Ambulat ory Pharmac y anthrax vaccine 2018 [id number] Emergent Biosolutions complet ed anthrax vaccine 11/11/18 Given Ambulat ory Pharmac y influenza, injectable, quadrivalent- pf 2017 [id number] GlaxoSmithKli ne complet ed influenza , injectabl e, quadrival ent-pf 09/22/18 Given Ambulat ory Pharmac y anthrax vaccine 2017 [id number] Emergent Biosolutions complet ed anthrax vaccine [...] pasteur complet ed typhoid vaccine, inactivat ed 3/6/17 Given Ambulat ory Pharmac y poliovirus vaccine, inactivated 2015 zzLef t Arm [id number] sanofi pasteur complet ed polioviru s vaccine, inactivat ed 03/09/16 Given Ambulat ory Pharmac y hepatitis B pediatric/ado lescent 2015 zzLef t Arm [id number] GlaxoSmithKli ne complet ed hepatitis B pediatric /adolesce nt 03/09/16 Given Ambulat ory Pharmac y tuberculin purified protein derivative 2015 zzLef t Arm [id number] sanofi pasteur complet ed tuberculi n purified protein derivativ e 02/03/16 Given Ambulat ory Pharmac y meningococcal oligosacchari de (MCV4O) 2015 zzLef t Arm [id number] sanofi pasteur complet ed meningoco ccal oligosacc haride (MCV4O) 02/03/16 Given Ambulat ory Pharmac y adenovirus vaccine, live 2015 zzLef t Arm [id number] 143 Teva Pharmaceutica ls complet ed [...] Prevention' s HIV diagnostic algorithm. Refer to [facility] Lab Guide for additional information : [email or web address] x Testing performed by [facility] Miscellan eous Sendouts Repository Sample Received ( 4 1:55 PM) 08/19 N [facility] Vital Signs Combined list of inpatient and outpatient Vital Signs from [facility] and [facility], ranging from 12 months to all on record, depending upon the facility. Vital Sign Value Date Comments Source Peripheral Pulse Rate 62 bpm 03/16/2025 15:05:00 [facility] [place] Mean Arterial Pressure, Calc 96 mm[Hg] 03/16/2025 15:05:00 [facility] [place] Temperature Oral 36.7 Trina 03/16/2025 15:05:00 [facility] [place] Systolic Blood Pressure 128 mm[Hg] 03/16/2025 15:05:00 [facility] [place] Diastolic Blood Pressure 80 mm[Hg] 03/16/2025 15:05:00 [facility] [place] Blood Pressure Manual Automatic 03/16/2025 15:05:00 [facility] [place] BP Site Left arm 03/16/2025 15:05:00 0035[facility] [place] Encounters Combined list of: 1) Encounters from [facility] of Veterans Affairs facilities going backup to the last 18 months, not all [facility] inpatient encounters are included; 2) Encounters from the Department of Defense facilities going backup to 280 months. Location Location Details Encounter Type Encounter Number Reason For Visit Attending Provider ADM Date DC Date Status Disposition Source [id number] [id number] Outpatient [id number] JORGE A HUNTER 08/21 Discharge Disposition: Home or Self Care [id number] [facility] [place] [facility] [id number] BALAJI JASMINE 09/09 Discharge Disposition: Home or Self Care 0035C-N [address] [id number] [facility] unspeci fied SAMANTHA ADKINS EY 03/16 Discharge Disposition: Home or Self Care 0035C-N [address] [id number] [facility] unspeci fied CHIKI KUMAR 03/16 Discharge Disposition: Home or Self Care 003-[address] Outside Documentat ion Only [id number] 04/02 Discharge Disposition: Home or Self Care [address] [place] [address] Procedures Combined list of: 1) Procedures from [facility] facilities [facility], not all [place] non-surgical procedures [...] y Pharmacy This section is an empty social history section. DoD Assessment and Plan Combined list of future care activities from Department of Defense and Veterans Affairs facilities (e.g., assessment and plan notes, appointments, orders, and referrals). Additional future care activities may be listed in the Plan of Care section. 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 A dministrative reason for encounter [id number] and [id number] completed. For m ore information, see [facility] documentation for electronic copy or medical record for hard copy o f detailed history and physical exam. P atient reports dx of PTSD, anxiety, and ADHD. He reports taking lamotrigine (off-label) to treat these issues. I have requested notes to verify his dx and tx plan. DUTY determination to follow review. 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 Chiki Gloria DO (E) LT, MC, [facility] Extracted from:Title: Optometry Visit Note Author: RAE CAROLINA Date: 03/16/25 1. A dministrative reason for encounter 04/15/[address] [place] [address] Functional Status Combined list of recent functional and cognitive assessments recorded at [facility] Defense and Veterans Affairs (VA).VA Functional Lyman Measurement (FIM) Scale: 1 = Total Assistance (Subject = 0% +), 2 = Maximal Assistance (Subject = 25% +), 3 = Moderate Assistance (Subject = 50% +), 4 = Minimal Assistance (Subject = 75% +), 5 = Supervision, 6 = Modified Lyman (Device), 7 = Complete Lyman (Timely, Safely). Assessment Date/Time Source Assessment Type Assessment Skill Assessment Score Assessment Details No data available for this section
== END ==
PROVIDERS: PCP Nurse Practitioner Family; Visit Provider Internal Medicine
DX: K59.4 Anal spasm (principal); K58.0 Irritable bowel syndrome with diarrhea
CPT/HCPCS: 99213